=== PATIENT | male | born 1970 | race Hispanic/Latino ===

== ENCOUNTER 2021-12-29 16:19 | Inpatient (IN) | payer OTHER, BC ==
--- OUTSIDE RECORDS SUMMARY | 2021-12-29 16:26 | XMS REPORT | Clinical Summary ---
:1970 Author Organization [facility] Address [address] [place] [address] Care Team Providers Name Role Phone Zena Quiles MD Primary Care Provider Allergies Active Allergy Reactions Severity Noted Date Comments Beau Inhibitors High 11/18/2018 Severe Cough Medications Medication Sig Dispensed Refills Start End Date Status Date anastrozole (ARIMIDEX) Take 1 tablet 1 Active 1 mg tablet by mouth 9 daily. losartan-hydrochlorothi Take 1 tablet 3 Active azide (HYZAAR) 100-25 by mouth 9 mg per tablet daily. metoprolol succinate Take 1 tablet 3 Active (TOPROL XL) 100 mg 24 by mouth 9 hr tablet daily. pantoprazole (PROTONIX) Take 1 tablet 1 Active 40 mg EC tablet by mouth 9 daily. meloxicam (MOBIC) 15 mg Take 1 tablet 1 Active tablet by mouth 9 daily. hydroxychloroquine Take 400 mg 1 Active (PLAQUENIL) 200 mg by mouth 9 tablet daily. testosterone cypionate Inject 200 mg 5 Active (DEPO-TESTOTERONE) 200 into the 9 mg/mL injection shoulder, thigh, or buttocks every 5 days. chlorproMAZINE Take 1 tablet 0 A ctive (THORAZINE) 25 mg by mouth as 9 tablet needed. ondansetron Dissolve 1 0 Active (ZOFRAN-ODT) 4 mg tablet on the 9 disintegrating tablet tongue as needed. simethicone (MYLICON) Chew 250 mg 0 Active 125 mg chewable tablet daily. loratadine (CLARITIN) Take 10 mg by 0 Active 10 mg tablet mouth daily. multivitamin capsule Take 1 0 Active capsule by mouth daily. calcium carbonate Take by mouth 0 Active (CALCIUM 500 ORAL) daily. adalimumab (Humira) 40 Inject 40 mg 0 Active mg/0.8 mL injection under the skin every 14 (fourteen) days. baclofen (LIORESAL) 10 TAKE 1 TABLET 270 tablet 1 Active mg tabletIndications: (10 MG) BY 2 Small bowel bacterial MOUTH EVERY 8 overgrowth syndrome (EIGHT) HOURS NEEDED FOR HICCUPS. baclofen (LIORESAL) 10 TAKE 1 TABLET 270 tablet 1 Discontinued mg tabletIndications: (10 MG) BY 1 22 Small bowel bacterial MOUTH EVERY 8 overgrowth syndrome (EIGHT) HOURS NEEDED FOR HICCUPS. baclofen (LIORESAL) 10 TAKE 1 TABLET 270 tablet 1 Discontinued mg tabletIndications: (10 MG) BY 2 22 Small bowel bacterial MOUTH EVERY 8 overgrowth syndrome (EIGHT) HOURS NEEDED FOR HICCUPS. Active Problems Problem Noted Date Abnormal finding on diagnostic imaging of other part o f digestive tract 11/23/2018 Overview: Added automatically from request for angelika juice [id number] History of bypass of stomach 11/18/2018 Overview: Added automatically from request for angelika juice [id number] Excessive belching 11/18/2018 Overview: Formatting of this note is dif ferent from the original. Mr. Collado is a 51 y.o. male with a PMH of rheumatoid arthritis, Sjogren's syndrome, polychondritis, HTN, gastric bypass, and obesity. He is being managed by Dr. Bandar Dillon at [facility] for NAFLD and is scheduled to have OS EGD on 2 for evaluation of GERD and hiatal hernia. He presents for follow up after last being seen in 11/2019. Follow up 12/15/2019: Mr. Colladois a [age] y.o.malewho presents for follow up video visit for intractable belching. He continues to take baclofen 10 mg when he awakens and before each meal. At times, he requires a 5th tablet. He reports th at belching is markedly improved. He reports that he wakes up during the night with belching episodes and reveals that he uses a CPAP machine. He denies nausea, v omiting, or dysphagia. Heartburn is well controlled with pantoprazole 40 mg qd. His weight is stable. He receives Humira injection for RA and is taking gabapentin 600 mg tid for cervical stenosis. Prior colonoscopy was done on 08/21/2017 and w as found to have internal hemorrhoids. He denies any family history of colorectal cancer. A/P: He has aerophagia as the cause of e xcessive belching. His symptoms are jason. pronounced at night time. These are likely related to the use of CPAP and he is advised to get this reassessed and refill ed. And taper down the baclofen as his s ymptoms improve. Previous workup summarized below: HREM 02/09/2019: EGD outflow obstruction . Normal peristalsis, elevated IRP. Digitrapper pH testing 02/09/2019: This study was done on acid blocking medications. Acid Exposure Time (%): 3.2 (normal <4.2 ) Longest Reflux ( min): 6.8 (normal <9.2) DeMeester Score: 12.6 (normal <14.72) 42 reflux episodes are seen. Most reflux episodes are in the upright position. Symptom association for the reported belching is 63.5 with weakly acidic reflux. This does not meet criteria or symptom ass ociation probability that belching is as sociated with reflux. IMPRESSION: These findings are consistent with acid reflux disease that is controlled with anti reflux medications.. EGD 01/24/2019-Dr. Quiles: LA Grade B refl ux esophagitis. Biopsied. 2 cm hiatal hernia. Gastric bypass with a pouch 4.5 cm in length. Gastrojejunal anastomosis characterized by healthy appearing mucosa. N ormal mucosa was found in the jejunum. B iopsied. A. SMALL BOWEL, BIOPSY: Small intestinal mucosa with preserved villous architecture and no diagnostic abnormality. B. ESOPHAGUS, DISTAL, BIOPSY: Squamous mucosa with ulcer and associated acute and chronic inflammation. No tumor seen. GMS stain for fungal microorganisms is negative. UGI SERIES DOUBLE CONTRAST 11/22/2018:F INDINGS: The esophageal course and caliber were normal with no strictures, masses or diverticula. Tertiary waves were seen in the middle esophageal region at the end of the study. There was no hiatal he rnia or reflux. There was timely passage of the contrast from the esophagus to the residual stomach. Post surgical changes of a Ana-en-Y were seen. No evidence o f strictures or obstructions. Quick pass age of the contrast to the small bowel was seen. IMPRESSION: 1. Post surgical changes of Ana-en-Y without evidence of strictures or obstruction. Quick passage of the contrast from esophagus to the smal l bowel. 2. Evidence of tertiary waves in the middle esophageal region. Encounters Date Type Specialty Care Team Description 12/06/2021 Refill GastroenterKb stephens Mehnaz Small jay wel bacterial Hepatology & Nutrition overg rowth syndrome 11/07/2021 Orders Only Gastroenterology, Daphne Fernandes, Loss of appetite (Primary Dx); Hepatology & Nutrition TECHNICIAN PREVENTATIVE MEDICINE Abnor mal weight loss 10/09/2021 Refill Kb Edmond Mehnaz Small jay wel bacterial Hepatology & Nutrition overg rowth syndrome 09/07/2021 Refill GastroenterKb stephens Mehnaz Small jay wel bacterial Hepatology & Nutrition overg rowth syndrome 09/02/2021 Refill GastroenterKb stephens Mehnaz Small jay wel bacterial Hepatology & Nutrition overg rowth syndrome 03/10/2021 Refill Kb Edmond Mehnaz Small jay wel bacterial Hepatology & Nutrition overg rowth syndrome after 12/29/2020 Surgical History Surgery Date Site/Laterality Comments COLONOSCOPY 02/23/2017 - 02/22/2018 STOMACH SURGERY 02/23/2018 - Hiatal hernia re pair 02/22/2019 CHOLECYSTECTOMY 02/23/2009 - 02/22/2010 SHOULDER SURGERY 02/23/2015 - 02/23/2016 UPPER GASTROINTESTINAL ENDOSCOPY 02/23/2017 - 02/22/2018 WA BREATH HYDROGEN/METHANE TEST 12/15/2018 N/A Procedure: HYDROGEN AND GLUCOSE BREATH T ESTS FOR BACTERIAL OVERGROWTH OR LA CTOSE INTOLERANCE; Angelika geon: Bandar Santos MD; Location: MAIN ENDOSCOPY; Servi ce: GASTROENTEROLOGY WA ESOPHAGOGASTRODUODENOSCOPY 01/24/2019 Esophagus/N/A Pr ocedure: DIAGNOSTIC TRANSORAL DIAGNOSTIC UPPER GASTR OINTESTINAL ENDOSCOPY; Surge on: Zena Quiles MD ; Location: MAIN ENDOSCOPY; Servi ce: GASTROENTEROLOGY WA ESOPHAGEAL MOTILITY STUDY, 02/09/2019 N/A Pr ocedure: ESOPHAGEAL MANOMETRY MOTILITY STUDY W/INTERP&REPORT (MANOSCAN HIGH R ES); Surgeon: Zena Quiles MD; Location: [facility]; Servi ce: GASTROENTEROLOGY WA GERD TST W/ NASAL PH ELECTROD 02/09/2019 N/A Procedure: GASTROESOPHAGEAL REFLUX TEST-DIGITRAPPER W/CATH PH ELTRD PLCOR; Surgeon: Zena Quiles MD; Location: [facility]; Servi ce: GASTROENTEROLOGY Medical History Medical History Date Comments Hypertension 1992 Irregular heart beat 1992 RBBB Dependence on continuous positive airway pressure ventilatio n 2006 Renal stone 2009 Sexual dysfunction 2008 Social History Tobacco Use Types Packs/Day Years Used Date Smoking Tobacco: Never Smokeless Tobacco: Never Alcohol Use Standard Drinks/Week Comments Yes 0 (1 standard drink = 0.6 oz pure alcoho l) Sex Assigned at Date Recorded Male 11/19/2018 3:22 PM CDT Obstetrics History Last Filed Vital Signs Not on file Plan of Treatment Health Maintenance Due Date Last Done Comments COVID-19 Vaccination (#1) 1970 Results Not on fileafter 12/29/2020 Insurance Payer Benefit Plan / Subscriber ID Effective Dates Phone Addre ss Type Group [employer] MANAGED AET[employer] HMO [id number] 2000-Present [id number] [place] [address] [employer] [place] PPO POS [id number] 2016-Present [address] [place] [address] Care Teams [employer] Technician Relationship Specialty Start Date End Date Zena Quiles MD PCP - General Gastroenterology, 11/12/18 [facility] Hepatology and Nutrition [place], [place] [phone]
--- OUTSIDE RECORDS SUMMARY | 2021-12-29 16:27 | XMS REPORT | Continuity of Care Document ---
:1970 Author Organization [facility] t Address [address] [place] [address] Care Team Providers Name Role Phone ZENA QUILES Primary Care Physician Unavailable ZENA QUILES Attending Clinician Unavailable Allegra Bowman Attending Clinician Garrett ARBOLEDA, Judson Molina Attending Clinician Yin Dillon MD Attending Clinician Lucia Guadalupe CPhT Attending Clinician Unavailable Karen Dela Cruz DO Attending Clinician Wesly Flor MD Attending Clinician Zena Quiles MD Attending Clinician Orr RN, Clem Attending Clinician Unavailable Calixto Oliveira MD Attending Clinician Keshia Epperson MA Attending Clinician Unavailable Daphne Fernandes NP Attending Clinician Johnson Beauchamp MA Attending Clinician Unavailable Mike Chowdhury MD Attending Clinician David Altman MD Attending Clinician RIANA CARDENAS Attending Clinician Unavailable ARMANDO ROBLEDO Attending Clinician Unavailable YOSELYN PATTON Attending Clinician Unavailable ZENA QUILES Admitting Clinician Unavailable JUDSON TUCKER Admitting Clinician Unavailable WESLY FLOR Admitting Clinician Unavailable ARMANDO ROBLEDO Admitting Clinician Unavailable Payers Payer Name Policy Type Policy Number Effective Date Expiration Date John [place] AET[employer] O [id number] [id number] 00:00:00 [place] [id number] 2016 00:00:00 AETNA HMO POS [id number] 2009 00:00:00 QPOS BCBS PPO POS EPO [id number] 2013 00:00:00 CHOICE Problems Condition Condition Condition Status Onset Resolution Last Treating Co mments Source Name Details Category Date Date Treatment Clinician Date Abnormal Abnormal Disease Active 2021-02 Metho di liver liver 02-23 enzymes enzymes 00:00: Hospita 00 l NAFLD NAFLD Disease Active 2021-02 Methodi (nonalcoho (nonalcoho 02-23 lic fatty lic fatty 00:00: Hosp harpal liver liver 00 l disease) disease) Right Right Disease Active 2021-02 Methodi upper upper 02-23 st quadrant quadrant 00:00: Hospit a abdominal abdominal 00 l pain pain Gastroesop Gastroesop Disease Active M ethodi hageal hageal 11-13 reflux reflux 00:00: Hospita disease disease 00 l Hernia, Hernia, Disease Active Methodi hiatal hiatal 11-13 00:00: Hospita 00 l Abnormal Abnormal Disease Active 2018-02 Overview: Un dany finding on finding on Formattin ity of diagnostic diagnostic 00:00: g of this [place] imaging of imaging of 00 note other part other part might be Anderso of of different n digestive digestive from the Ca ncer tract tract original. Center Added automatic ally from request for surgery [id number] History of History of Disease Active Overview : Univers bypass of bypass of 11-18 Formattin i ty of stomach stomach 00:00: g of this [place] 00 note MD might be Anderso different n from the Cancer original. Center Added automatic ally from request for surgery [id number] Excessive Excessive Disease Active Overview: Univers belching belching 11-18 Formattin ity of 00:00: g of this [place] 00 note is MD franky [place] from the n original. Cancer Mr. Jordan Collado is a 51 y.o. male with a PMH of rheumatoi d arthritis , Sjogren's syndrome, polychond ritis, HTN, gastric bypass, and obesity. He is being managed by Dr. Yin Dillon at [facility] for NAFLD and is scheduled to have OS EGD on 2 for evaluatio n of GERD and hiatal hernia. He presents for follow up after last being seen in 11/2019.F ollow up 0: Mr. Collado is a 49 y.o. male who presents for follow up video visit for intractab le belching. He continues to take baclofen 10 mg when he awakens and before each meal. At times, he requires a 5th tablet. He reports that belching is markedly improved. He reports that he wakes up during the night with belching episodes and reveals that he uses a CPAP machine. He denies nausea, vomiting, or dysphagia . Heartburn is well controlle d with pantopraz ole 40 mg qd. His weight is stable. He receives Humira injection for RA and is taking gabapenti n 600 mg tid for cervical stenosis. Prior colonosco py was done on 08/21/2017 and was found to have internal hemorrhoi ds. He denies any family history of colorecta l cancer.A/ P: He has aerophagi a as the cause of excessive belching. His symptoms are jason. pronounce d at night time. These are likely related to the use of CPAP and he is advised to get this reassesse d and refilled. And taper down the baclofen as his symptoms improve.P revious workup summarize d below:HRE M 9: EGD outflow obstructi on. Normal peristals is, elevated IRP.Digit rapper pH testing 9: This study was done on acid blocking medicatio ns.Acid Exposure Time (%): 3.2 (normal <4.2)Long est Reflux ( min): 6.8 (normal <9.2)Yovany michelle Score: 12.6 (normal < 14.72)42 reflux episodes are seen. Most reflux episodes are in the upright position. Symptom associati on for the reported belching is 63.5 with weakly acidic reflux. This does not meet criteria or symptom associati on probabili ty that belching is associate d with reflux. IMPRESSIO N: These findings are consisten t with acid reflux disease that is controlle d with anti reflux medicatio ns..EGD 01/24/2019 -Dr. Quiles: LA Grade B reflux esophagit is. Biopsied. 2 cm hiatal hernia. Gastric bypass with a pouch 4.5 cm in length. Gastrojej unal anastomos is character ized by healthy appearing mucosa. Normal mucosa was found in the jejunum. Biopsied. A. SMALL BOWEL, BIOPSY: Small intestina l mucosa with preserved villous aws architect ure and no diagnosti c abnormali ty. B. ESOPHAGUS , DISTAL, BIOPSY: Squamous mucosa with ulcer and associate d acute and chronic inflammat ion. No tumor seen. GMS stain for fungal microorga nisms is negative. UGI SERIES DOUBLE CONTRAST 11/22/2018 : FINDINGS: The esophagea l course and caliber were normal with no stricture s, masses or diverticu la. Tertiary waves were seen in the middle esophagea l region at the end of the study. There was no hiatal hernia or reflux. There was timely passage of the contrast from the esophagus to the residual stomach. Post surgical changes of a Ana-en-Y were seen. No evidence of stricture s or obstructi ons. Quick passage of the contrast to the small bowel was seen. IMPRESSIO N: 1. Post surgical changes of Ana-en-Y without evidence of stricture s or obstructi on. Quick passage of the contrast from esophagus to the small bowel. 2. Evidence of tertiary waves in the middle esophagea l region. Allergies, Adverse Reactions, Alerts Allergy Allergy Status Severity Reaction(s) Onset Inactive Treating Comm ents Source Name Type Date Date Clinician Beau Propensi Active Severe Univers Inhibito ty to 11-18 Cough ity of rs adverse 00:00: [place] reaction 00 MD john [place] [facility] Beau Propensi Active Other (See 2019 cough Meth easton Inhibito ty to Comments) 04-09 st rs adverse 00:00: Hospita reaction 00 l s to drug NO KNOWN Allergy Active [facility] Family History Family Member Diagnosis Comments Start Date Stop Date Source Natural brother Hypertension [facility] Natural daughter Thrombocytopenia [facility] Natural mother Liver [facility] Natural sister Magdalena's thyroiditis [facility] Natural sister Rheum arthritis [facility] Social History Social Habit Start Date Stop Date Quantity Comments Source Alcohol intake 2021-12-26 2021-12-26 Current drinker of [place] [facility] 00:00:00 00:00:00 alcohol (finding) Hospita l Tobacco use and 2021-11-07 2021-11-07 Smokeless tobacco [facility] exposure 00:00:00 00:00:00 non-user Hospital Alcohol Comment 2019-11-02 2019-11-[address] 00:00:00 00:00:00 Hospital Sex Ass[birth year] At [birth year] [facility] [place] 00:00:00 00:00:00 [facility] Center Smoking Status Start Date Stop Date Source Never smoked tobacco [facility] Medications Ordered Filled Start Stop Current Ordering Indication Dosage Frequency Signature Comments Components Source Medication Medication Date Date Medication? Clinician (SIG) Name Name RAQUEL Johnson, 2021-02 Yes INJECT 1 Met hodi Pen 40 0-[address] mg/0.4 mL 00:00: THE SKIN Hosp harpal pen 00 EVERY 14 l injector DAYS. kit baclofen 2021-02 Yes Small bowel 10mg TAKE 1 Univers (LIORESAL) 0-19 bacterial TABLET (10 ity of 10 mg 00:00: over[place] tablet 00 syndrome MOUTH MD EVERY 8 Anderso (EIGHT) n HOURS Cancer NEEDED FOR Center HICCUPS. sulfaSALAzi Yes TAKE 2 Meth easton ne 9-[address] (AZULFIDINE 00:00: MOUTH Hospi ta ) 500 mg 00 TWICE A l tablet DAY hydrOXYchlo Yes [id number] 400mg QD Take 2 Methodi roQUINE 9-[address] (PLAQUENIL) 00:00: (400 mg Hos junior 200 mg 00 total) by l tablet mouth daily. RAQUEL Johnson, 2021- No INJECT 1 Me thodi Pen 40 8-02 10-[address] mg/0.4 mL 00:00: 00:00 THE SKIN Hos junior pen 00 :00 EVERY 14 l injector DAYS. kit sulfaSALAzi 2022-0 2022- No 500mg Q.5D Take 500 Methodi ne 08-20- mg by st (AZULFIDINE 15:09: 00:00 mouth 2 Ho spita ) 500 mg 07 :00 (two) l tablet times a day. flu vac 2021- No Afluria Qd Met hodi [id number] st 36mos 14:56: 00:00 (36 mos Hospita up,PF, 57 :00 up)(PF)60 l (Afluria Qd mcg (15 ,3yr mcg up,,PF,) 60 x4)/0.5 mL mcg (15 mcg IM syringe x 4)/0.5 mL syringe sulfaSALAzi 2021- No 1000mg Q.5D Take 2 M ethodi ne 08-[address] (AZULFIDINE 00:00: 00:00 (1,000 mg Hospita ) 500 mg 00 :00 total) by l tablet mouth 2 (two) times a day. methocarbam Yes 750mg Take 1 Met hodi oL 07-[address] (ROBAXIN) 00:00: (750 mg Hospi ta 750 MG 00 total) by l tablet mouth as needed. hydrOXYchlo 2021- No [id number] TAKE 2 Methodi roQUINE 07-26 09-[address] (PLAQUENIL) 00:00: 00:00 MOUTH Hosp harpal 200 mg 00 :00 EVERY DAY l tablet Humira,CF, 2021- No INJECT 1 Me thodi Pen 40 4- 08-[address] mg/0.4 mL 00:00: 00:00 THE SKIN Hos junior pen 00 :00 EVERY 14 l injector DAYS. kit leflunomide 2021- No TAKE 1 Met hodi (ARAVA) 10 05-21 04-[address] MG tablet 00:00: 00:00 MOUTH Hospit a 00 :00 EVERY DAY l sulfaSALAzi 2021- No 500mg Q.5D Take 1 Me thodi ne 05-14 04-[address] (Azulfidine 00:00: 00:00 (500 mg Ho spita ) 500 mg 00 :00 total) by l tablet mouth 2 (two) times a day. meloxicam No 15mg Q24H TAKE 1 Metho di (MOBIC) 15 2-08 02-09 TABLET (15 st mg tablet 00:00: 05:59 MG TOTAL) Ho spita 00 :00 BY MOUTH l DAILY NEEDED FOR MODERATE PAIN. Prevalite 4 2021- No TAKE 1 Met hodi gram powder 26 09-[address] in packet 00:00: 00:00 PACKET Hospi ta 00 :00 ONCE A DAY l DISSOLVED IN 4 OZ OF WATER adalimumab 2021- No 40mg Q14D Inject 40 M ethodi (Humira,CF, 126 04-[address] Pen) 40 00:00: 00:00 the skin Hospi ta mg/0.4 mL 00 :00 every 14 l pen (fourteen) injector days. kit baclofen No Small bowel 10mg TAKE 1 Univers (LIORESAL) 03-13 10-19 bacterial TABLET (10 ity of 10 mg 00:00: 00:00 overgrowth MG) BY Joseph as tablet 00 :00 syndrome MOUTH MD EVERY 8 Anderso (EIGHT) n HOURS Cancer NEEDED FOR Center HICCUPS. adalimumab No 40mg Q14D Inject 40 M ethodi (Humira,CF, 118 01-[address] Pen) 40 00:00: 00:00 the skin Hospi ta mg/0.4 mL 00 :00 every 14 l pen (fourteen) injector days. kit anastrozole 2020-02 Yes 1mg Q7D Take 1 Meth easton (ARIMIDEX) 2-30 tablet (1 st 1 mg chemo 00:00: mg total) Ho spita tablet 00 by mouth l once a week. leflunomide 2020-02- No 20 MG Meth [facility]on (ARAVA) 20 2-30 03-[address] MG tablet 00:00: 00:00 Hospita 00 :00 l leflunomide 2020-02- No 10 mg Meth [place] (ARAVA) 20 2-23 12-[address] MG tablet 00:00: 00:00 1 week Hospi ta 00 :00 then 20 mg l daily leflunomide 2020-02- No 10 mg Meth easton (ARAVA) 20 04-16-[address] MG tablet 00:00: 00:00 1 week Hospi ta 00 :00 then 20 mg l daily leflunomide 2020-02- No 10mg QD Take 1 Met hodi (ARAVA) 10 04-16- tablet (10 st MG tablet 00:00: 00:00 mg total) Ho spita 00 :00 by mouth l daily. BD Luer-Kt 2020-02 Yes Method i Syringe 3 2-16 st mL 23 gauge 00:00: Hospit a x 1 1/2" 00 l syringe BD Regular 2020-02 Yes Methodi Bevel 1-10 st Galt 18 00:00: Hospita gauge x 1" 00 l needle naproxen 2020-02- No 500mg Q.5D Take 500 Met hodi (NAPROSYN) 012 03-[address] 500 MG 00:00: 00:00 mouth 2 Hospita tablet 00 :00 (two) l times a day with meals. hydrOXYchlo 2021- No [id number] 400mg QD Take 2 Methodi roQUINE 11-14 06-[address] (PLAQUENIL) 00:00: 00:00 (400 mg Ho spita 200 mg 00 :00 total) by l tablet mouth daily. adalimumab 2021- No 40mg Q14D Inject 40 M ethodi (Humira,CF, 11-14 01-[address] Pen) 40 00:00: 00:00 the skin Hospi ta mg/0.4 mL 00 :00 every 14 l pen (fourteen) injector days. kit meloxicam 2021- No 15mg Q24H TAKE 1 Metho di (MOBIC) 15 8-11 02-08 TABLET (15 st mg tablet 00:00: 00:00 MG TOTAL) Ho spita 00 :00 BY MOUTH l DAILY NEEDED FOR MODERATE PAIN. baclofen No Small bowel 10mg TAKE 1 Univers (LIORESAL) 09-20-19 bacterial TABLET (10 ity of 10 mg 00:00: 00:00 overgrowth MG) BY Joseph as tablet 00 :00 syndrome MOUTH MD EVERY 8 Anderso (EIGHT) n HOURS Cancer NEEDED FOR Center HICCUPS. gabapentin 2019-02 Yes TAKE 1 Metho di (NEURONTIN) 2-[address] 600 mg 00:00: MOUTH Hospita tablet 00 THREE l TIMES A DAY clindamycin 2019-02 Yes Method i (CLEOCIN T) 2-22 st 1 % swab 00:00: Hospita 00 l predniSONE 2019-02- No 2 tabs Meth [facility]on (DELTASONE) 2-19 12-[address] 5 mg tablet 00:00: 05:59 3 days Hos junior 00 :00 then 1 tab l daily for 3 days. To have on hand for arthritis flare. azelastine- 2019-02 Yes 1{spray 1 spray by Methodi fluticasone 0-25 } Each Nare st (DYMISTA) 00:00: route. Hospit a 137-50 00 l mcg/spray spray,non-a erosol adalimumab 2019-02 Yes 40mg Inject 40 Un dayn (Humira) 40 0-20 mg under ity of mg/0.8 mL 11:03: [place] injection 51 every 14 (gaetano) [facility] [place] simethicone 2019-02 Yes 250mg Chew 250 U nivers (MYLICON) 0-20 mg daily. ity o f 125 mg 11:03: [place] chewable 26 tablet [facility] loratadine 2019-02 Yes 10mg Take 10 mg U nivers (CLARITIN) 0-20 by mouth ity o f 10 mg 11:03: daily. [place] tablet 26 MD [facility] [place] multivitami 2019-02 Yes 1{capsu Take 1 U nivers n capsule 0-20 le} capsule by ity of 11:03: mouth [place] 26 daily. MD [facility] [place] calcium 2019-02 Yes Take by Univers carbonate 0-20 mouth ity of (CALCIUM 11:03: daily. [place] 500 ORAL) 26 MD [facility] [place] anastrozole Yes 1{tbl} Take 1 Un dany (ARIMIDEX) 9-17 tablet by ity of 1 mg tablet 00:00: mouth [place] 00 daily. MD [facility] meloxicam Yes 1{tbl} Take 1 Univ ers (MOBIC) 15 9-17 tablet by ity of mg tablet 00:00: mouth [place] 00 daily. MD [facility] testosteron Yes 200mg Inject 200 Univers e cypionate 9-17 mg into ity o f (DEPO-TESTO 00:00: the [place] TERONE) 200 00 shoulder, MD mg/mL thigh, or Anderso injection buttocks n every 5 Cancer days. [place] hydroxychlo Yes 400mg Take 400 U nivers roquine 9-13 mg by ity of (PLAQUENIL) 00:00: mouth [place] 200 mg 00 daily. tablet Coni [facility] losartan-hy Yes 1{tbl} Take 1 Un dany drochloroth 8-07 tablet by ity of iazide 00:00: mouth [place] (HYZAAR) 00 daily. 100-25 mg Anderso per tablet [facility] metoprolol Yes 1{tbl} Take 1 Uni vers succinate 8-07 tablet by ity o f (TOPROL XL) 00:00: mouth [place] 100 mg 24 00 daily. hr tablet [facility] chlorproMAZ Yes 1{tbl} Take 1 Un dany INE 8-07 tablet by ity of (THORAZINE) 00:00: [place] 25 mg 00 needed. tablet [facility] ondansetron Yes 1{tbl} Dissolve 1 Univers (ZOFRAN-ODT 8-07 tablet on ity of ) 4 mg 00:00: the tongue [place] disintegrat 00 as needed. ing tablet [facility] baclofen Yes 10mg Q.2D Take 10 mg Met hodi (LIORESAL) 8-[address] 10 MG 00:00: (five) Hospita tablet 00 times a l day. XIIDRA 5 % Yes INSTILL 1 Me thodi dropperette 7-[address] 00:00: BOTH EYES Hospita 00 TWICE A l DAY pantoprazol Yes 1{tbl} Take 1 Un dany e 6-07 tablet by ity of (PROTONIX) 00:00: mouth [place] 40 mg EC 00 [facility]. [facility] pantop[facility]ol Yes 40mg QD Take 40 mg Methodi e 1-[address] (PROTONIX) 00:00: daily. Hospi ta 40 MG EC 00 l tablet testosteron Yes INJECT 1 Me thodi e cypionate 1-[address] (DEPOTESTOT 00:00: INTRAMUSCU Hospita ERONE 00 LARLY ONCE l CYPIONATE) A WEEK 200 mg/mL injection sildenafil, Yes 20mg QD Take 20 mg Methodi antihyperte 1-[address] nsive, 00:00: daily. Hospita (REVATIO) 00 l 20 mg tablet losartan-hy Yes 1{tbl} QD Take 1 Me thodi drochloroth 1-[address] iazide 00:00: mouth Hospita (HYZAAR) 00 daily. l 100-25 mg per tablet metoprolol Yes 100mg QD Take 100 Me thodi succinate 1-[address] XL 00:00: mouth Hospita (TOPROL-XL) 00 daily. l 100 mg 24 hr tablet Vital Signs Vital Name Observation Time Observation Value Comments Source Systolic blood 2021-12-26 12:46:00 117 mm[Hg] [facility] pressure Diastolic blood 2021-12-26 12:46:00 77 mm[Hg] [facility] pressure Heart rate 2021-12-26 12:46:00 79 /min [facility] Body temperature 2021-12-26 12:46:00 36.61 Brigette [facility] Respiratory rate 2021-12-26 12:46:00 18 /min [facility] Body height 2021-12-26 12:46:00 162.6 cm [facility] Body weight 2021-12-26 12:46:00 84.369 kg [facility] BMI 2021-12-26 12:46:00 31.93 kg/m2 [facility] Oxygen saturation in 2021-12-26 12:46:00 98 /min [facility] Arterial blood by Pulse oximetry Procedures Procedure Date / Time Performing Source Performed Clinician CBC WITH PLATELET AND DIFFERENTIAL 2021-12-13 Yin Dillon 17:11:00 [facility] COMPREHENSIVE METABOLIC PANEL 2021-12-13 Yin Dillon ethodist 17:11:00 Hospital GGT 2021-12-13 Yin Dillon 17:11:00 [facility] IMMUNOGLOBULIN G, A, M 2021-12-13 Yin Dillon t 17:11:00 Hospital PROTHROMBIN TIME WITH INR 2021-12-13 Yin Dillon [facility] dist 17:11:00 Hospital FL UGI W OR WO KUB 2021-12-12 Wesly Flor 14:05:00 Hospital SURGICAL PATHOLOGY REQUEST 2021-12-03 Wesly Floro dist 19:41:00 Hospital ESOPHAGOGASTRODUODENOSCOPY (EGD) 2021-12-03 Wesly Flor 19:33:00 Hospital C-REACTIVE PROTEIN 2021-11-07 Lanie Latifa [facility] 20:32:00 Hospital SEDIMENTATION RATE 2021-11-07 Lanie Latifa [facility] 20:32:00 Hospital CBC WITH PLATELET AND DIFFERENTIAL 2021-11-07 Lanie Juani a [facility] 20:32:00 Hospital ALBUMIN LEVEL 2021-11-07 Lanie Latifa [facility] 20:32:00 Hospital AST (SGOT) 2021-11-07 Lanie Latifa [facility] 20:32:00 Hospital ALT (SGPT) 2021-11-07 Lanie, Latifa [facility] 20:32:00 Hospital URINALYSIS, AUTOMATED WITH 2021-11-07 Lanie Latifa [facility] MICROSCOPY 20:31:00 Hospital ANTI-NEUTROPHILIC CYTOPLASMIC ABS 2021-11-07 Lanie, Latifa [facility] PANEL 20:31:00 Hospital MYELOPEROXIDASE (MPO) ANTIBODIES 2021-11-07 Lanie Latifa [facility] 20:31:00 Hospital IMMUNOFIXATION, SERUM 2021-11-07 Lanie, Latifa [facility] 20:31:00 Hospital SERUM ELECTROPHORESIS 2021-11-07 Lanie, Latifa [facility] 20:31:00 Hospital MICROSCOPIC EXAMINATION 2021-11-07 Lanie Latifa Methodis t 20:31:00 Hospital MRI ABDOMEN W WO CONTRAST 2021-10-22 Yin Dillon [facility] dist 15:57:01 Hospital CBC WITH PLATELET AND DIFFERENTIAL 2021-09-04 Yin Dillon 14:21:00 Hospital COMPREHENSIVE METABOLIC PANEL 2021-09-04 Yin Dillon ethodist 14:21:00 Hospital GGT 2021-09-04 Yin Dillon 14:21:00 Hospital PROTHROMBIN TIME WITH INR 2021-09-04 Yin Dillon Metho dist 14:21:00 Hospital IMMUNOGLOBULIN G, A, M 2021-09-04 Yin Dillonis t 14:21:00 Hospital LIPID PANEL 2021-09-04 Yin Dillon 14:21:00 Hospital ANTI-SMOOTH MUSCLE ANTIBODY 2021-09-04 Yin Dillon Met hodist 14:21:00 Hospital ANTI MITOCHONDRIA SCREEN 2021-09-04 Yin Dillon ist 14:21:00 Hospital ANTINUCLEAR ANTIBODIES (MEGHANA) WITH 2021-09-04 Yin Dillon REFLEX TO TITER AND PATTERN, 14:21:00 Hos pital IMMUNOFLUORESCENCE ACUTE VIRAL HEPATITIS (HAV, HBV, 2021-09-04 Yin Dillon HCV) 14:21:00 Hospital INTERPRETATION 2021-09-04 Yin Dillon 14:21:00 Hospital US ABDOMINAL DOPPLER 2021-09-03 Yin Dillon 17:16:00 Hospital US ABDOMEN COMPLETE 2021-09-03 Yin Dillon 16:35:[address] POST MYELOGRAM THORACIC 2021-08-30 Mike Chowdhury Met hodist 16:39:[address] POST MYELOGRAM LUMBAR 2021-08-30 Mike Chowdhuryo dist 16:39:[address] POST MYELOGRAM CERVICAL 2021-08-30 Mike Chowdhury hodist 16:26:33 Hospital IR MYELOGRAM 2+REG INCL INJ W S&I 2021-08-30 Mike Chowdhury [facility] 16:09:18 Hospital XR CERVICAL SPINE AP LATERAL 2021-07-26 Mike Chowdhury K. M ethodist FLEXION AND EXTENSION 16:47:17 Hospital AST (SGOT) 2021-07-10 Karen Dela Cruz 17:55:00 Hospital ALT (SGPT) 2021-07-10 Karen Dela Cruz 17:55:00 Hospital ALBUMIN LEVEL 2021-07-10 Karen Dela Cruz 17:55:00 Hospital CREATININE LEVEL 2021-07-10 Fakoya, Latifa [facility] 17:55:00 Hospital SEDIMENTATION RATE 2021-07-10 Fakoya, Latifa [facility] 17:55:00 Hospital C-REACTIVE PROTEIN 2021-07-10 Fakoya, Latifa [facility] 17:55:00 Hospital CBC WITH PLATELET AND DIFFERENTIAL 2021-07-10 Fakoya, Juani a [facility] 17:55:00 Hospital QUANTIFERON-TB GOLD PLUS 2021-07-10 Fakoya Latifa [facility] dist 17:55:00 Hospital HEPATITIS B CORE ANTIBODY TOTAL 2021-07-10 Fakoya, Latifa [facility] 17:55:00 Hospital HEPATITIS C ANTIBODY 2021-07-10 Fakoya, Latifa [facility] 17:55:00 Hospital HEPATITIS B SURFACE ANTIBODY 2021-07-10 Fakoyisaías Latifa Met hodist 17:55:00 Hospital HEPATITIS B SURFACE ANTIGEN 2021-07-10 Fakcal Latifa [facility]ist 17:55:00 Hospital QUANTIFERON-TB GOLD PLUS 2021-07-[address] 17:55:00 [facility] US ABDOMINAL EXTERNAL STUDY 2021-03-26 David Altman [facility]ist 13:51:00 Hospital Plan of Care Planned Activity Planned Date Details Comments Source Future Scheduled 2021-12-27 HEPATITIS B VACCINES [facility] Test 11:49:17 (1 of 3 - 3-dose series) [code = HEPATITIS B VACCINES (1 of 3 - 3-dose series)] Future Scheduled 2021-12-27 COLONOSCOPY SCREENING [facility] Test 11:49:17 [code = COLONOSCOPY SCREENING] Future Scheduled 2021-12-21 COVID-19 Vaccination [facility] Test 11:24:29 (#1) [code = COVID-19 MD [facility] Vaccination (#1)] Center Future Scheduled 2021-10-24 INFLUENZA VACCINE (#1) [facility] Test 00:00:00 [code = INFLUENZA Medical Ce nter VACCINE (#1)] Future Scheduled 2021-02-[address] [facility] Test 00:00:00 (12+) [code = Medical Center DEPRESSION SCREENING (12+)] Future Scheduled 2018-01-27 SHINGLES VACCINES ([address] [facility] Test 00:00:00 of 2) [code = SHINGLES Medic al Center VACCINES (1 of 2)] Future Scheduled 2003-01-[address] [facility] Test 00:00:00 (procedure) [code = Medical Center [id number]] Future Scheduled 1987-01-27 DTAP/TDAP/TD VACCINES [facility] Test 00:00:00 (1 - Tdap) [code = Medical C enter DTAP/TDAP/TD VACCINES (1 - Tdap)] Future Scheduled 1986-01-27 HEPATITIS C SCREENING [facility] Test 00:00:00 [code = HEPATITIS C Medical Center SCREENING] Future Scheduled 1970 COVID-19 VACCINE (#1) [facility] Test 00:00:00 [code = COVID-[address] VACCINE (#1)] Future Scheduled [address] [facility] 00:00:00 (combo) [code = CT Medical C enter Colonography (combo)] Future Scheduled [address] [facility] 00:00:00 malignant neoplasm of Medica l Center colon (procedure) [code = 527871081] Future Scheduled [address] [facility] Test 00:00:00 malignant neoplasm of Medica l Center colon (procedure) [code = 597968793] Future Scheduled [address] [facility] Test 00:00:00 malignant neoplasm of Medica l Center colon (procedure) [code = 572228446] Future Scheduled [address] [facility] Test 00:00:00 malignant neoplasm of Medica l Center colon (procedure) [code = 543682222] Future Scheduled 1970 Sigmoidoscopy [code = [facility] Test 00:[facility] S[facility]oscopy] Medical Cente r Encounters Start End Encounter Admission Attending Care Care Encounter Source Date/Time Date/Time Type Type Clinicians Facility Department ID 2019-09-02 Outpatient SYLVIE QUILES MDA Young/Hep/Nu [id number] 9357 10:09:24 ZENA Newberry n 2021-12-26 2021-12-26 Anesthesia Allegra Acosta 1.2.840.1 [id number] Methodi 10:10:00 10:10:[address] 3.430.2.7 Hospit a .3.779730 l .8 2021-12-26 2021-12-26 [facility] Judson Tucker 1.2.840.1 [id number] 2 [id number] Methodi 07:36:00 08:20:00 Encounter Tracy 28894.1.1 992 s t 3.430.2.7 Hospit a .3.374388 l .8 2021-12-26 2021-12-26 Outpatient JUDSON TUCKER [facility] 021 082 [id number] [place] 00:00:00 00:00:[address] 2021-12-26 2021-12-26 Travel 1.2.840.1 1.2.898.486 1735 274155 Methodi 00:00:00 00:00:[address] 3.430.2.7 0.2.7.3.698 Ho spita .3.364488 084.8 l .8 2021-12-24 2021-12-24 Office Santana 1.2.840.1 [id number] 816689 2370 Methodi 10:15:00 10:35:10 Visit Yin Rose 28183.1.[address] 3.430.2.7 Hospit a .3.355374 l .8 2021-12-24 2021-12-24 Outpatient SANTANA [facility] [id number] 494 [place] 00:00:00 00:00:[address] YIN [address] 2021-12-24 2021-12-24 Travel 1.2.840.1 1.2.116.458 8105 953834 Methodi 00:00:00 00:00:[address] 3.430.2.7 0.2.7.3.698 Ho spita .3.820876 084.8 l .8 2021-12-17 2021-12-17 Telephone Collins, 1.2.840.1 [id number] 2 [id number] Methodi 00:00:00 00:00:[address] 3.430.2.7 Hospit a .3.041131 l .8 2021-12-16 2021-12-16 Refill Lanie, 1.2.840.1 [id number] 373479 0565 Methodi 00:00:00 00:00:[address] 3.430.2.7 Hospit a .3.259620 l .8 2021-12-12 2021-12-12 [facility] 1.2.840.1 [id number] 06064 07253 Methodi 08:12:26 23:59:00 Encounter Wesly PRey 69022.1.1 954 s t 3.430.2.7 Hospit a .3.550109 l .8 2021-12-12 2021-12-12 [facility] [id number] 514 [place] 00:00:00 00:00:00 WESLY [address] 2021-12-12 2021-12-12 Travel 1.2.840.1 1.2.498.795 1497 686615 Methodi 00:00:00 00:00:[address] 3.430.2.7 0.2.7.3.698 Ho spita .3.194985 084.8 l .8 2021-12-06 2021-12-06 [facility] Kb, 1.2.840.1 [id number] 478776 0586 Univers 00:00:00 00:00:00 Zena 58739.1.1 ity of 3.412.2.7 [place] .3.330815 MD .8 [facility] 2021-12-04 2021-12-04 Telephone de Los 1.2.840.1 [id number] 2099 220067 Methodi 00:00:00 00:00:00 Bebeto, 31663.1.[address] [place] 3.430.2.7 Hos junior .3.805983 l .8 2021-12-04 2021-12-04 Orders de Los 1.2.840.1 [id number] 621590 6896 Methodi 00:00:00 00:00:00 Only Bebeto, 83336.1.[address] [facility] 3.430.2.7 Hos junior .3.002101 l .8 2021-12-03 2021-12-03 [facility] [place], 1.2.840.1 [id number] 33964 14311 Methodi 11:47:00 15:26:00 Encounter Wesly Adams 27598.1.1 096 s t 3.430.2.7 Hospit a .3.390977 l .8 2021-12-03 2021-12-03 Anesthesia Calixto Oliveira K 1.2.840.1 519637 028 [id number] Methodi 14:33:00 14:47:00 Event Allegra Acosta 63923.1.1 107 s t 3.430.2.7 Hospit a .3.159385 l .8 2021-12-03 2021-12-03 [facility] [place], 1.2.840.1 [id number] 992322 3296 Methodi 13:00:00 13:30:00 Wesly Adams 09238.1.[address] 3.430.2.7 Hospit a .3.558931 l .8 2021-12-03 2021-12-03 Outpatient [facility] 864 [id number] 276 [place] 00:00:00 00:00:[address] WESLY [address] 2021-12-03 2021-12-03 Travel 1.2.840.1 1.2.895.969 1570 996356 Methodi 00:00:00 00:00:[address] 3.430.2.7 0.2.7.3.698 Ho spita .3.877616 084.8 l .8 2021-12-02 2021-12-02 Telephone Zeenat, 1.2.840.1 [id number] 2099 864447 Methodi 00:00:00 00:00:[address] 3.430.2.7 Hospit a .3.933795 l .8 2021-11-28 2021-11-28 Travel 1.2.840.1 1.2.687.296 5807 971650 Methodi 00:00:00 00:00:[address] 3.430.2.7 0.2.7.3.698 Ho spita .3.045275 084.8 l .8 2021-11-27 2021-11-27 Travel 1.2.840.1 1.2.886.855 5477 690524 Methodi 00:00:00 00:00:[address] 3.430.2.7 0.2.7.3.698 Ho spita .3.540346 084.8 l .8 2021-11-26 2021-11-26 Orders Zeenat, 1.2.840.1 [id number] 092680 7096 Methodi 00:00:00 00:00:00 Only Keshia 87474.1.[address] 3.430.2.7 Hospit a .3.886037 l .8 2021-11-19 2021-11-19 Orders Zeenat, 1.2.840.1 [id number] 404432 6822 Methodi 00:00:00 00:00:00 Only Keshia 18140.1.[address] 3.430.2.7 Hospit a .3.829051 l .8 2021-11-19 2021-11-19 Prep for Zeenat, 1.2.840.1 [id number] 32239 35742 Methodi 00:00:00 00:00:00 Surgery Keshia 98084.1.[address] 3.430.2.7 Hospit a .3.957788 l .8 2021-11-13 2021-11-13 Office Chacho 1.2.840.1 [id number] 627546 2134 Methodi 14:00:00 15:39:38 Visit Wesly Adams 40496.1.[address] 3.430.2.7 Hospit a .3.440378 l .8 2021-11-13 2021-11-13 Outpatient CHACHO [facility] [id number] 571 [place] 00:00:00 00:00:00 WESLY [address] 2021-11-13 2021-11-13 Travel 1.2.840.1 1.2.090.350 1748 020163 Methodi 00:00:00 00:00:[address] 3.430.2.7 0.2.7.3.698 Ho spita .3.855777 084.8 l .8 2021-11-12 2021-11-12 Refill Fakhaileya, 1.2.840.1 [id number] 917644 3285 Methodi 00:00:00 00:00:[address] 3.430.2.7 Hospit a .3.019898 l .8 2021-11-07 2021-11-07 Office Lanie, 1.2.840.1 [id number] 390033 1808 Methodi 14:40:00 15:26:25 Visit Lataury 90441.1.[address] 3.430.2.7 Hospit a .3.175669 l .8 2021-11-07 2021-11-07 Orders Dom, 1.2.840.1 [id number] 30794 04095 [facility] 00:00:00 00:00:00 Only Daphne 34224.1.1 ity of 3.412.2.7 [place] .3.234489 MD Le8 [facility] 2021-11-07 2021-11-07 Outpatient [facility] [id number] 258 [place] 00:00:00 00:00:[address] 2021-11-07 2021-11-07 Travel 1.2.840.1 1.2.176.072 2868 883399 Methodi 00:00:00 00:00:[address] 3.430.2.7 0.2.7.3.698 Ho spita .3.783151 084.8 l .8 2021-11-05 2021-11-05 Orders Beauchamp, 1.2.840.1 [id number] 21 [id number] Methodi 00:00:00 00:00:00 Only Johnson 26182.1.[address] 3.430.2.7 Hospit a .3.720239 l .8 2021-10-22 2021-10-22 [facility] Santana, 1.2.840.1 [id number] 05044 82662 Methodi 08:57:12 23:59:00 Encounter Yin Rose 61099.1.1 927 s t 3.430.2.7 Hospit a .3.906705 l .8 2021-10-22 2021-10-22 Outpatient SANTANA, [facility] [id number] 680 [place] 00:00:00 00:00:00 YIN [address] 2021-10-22 2021-10-22 Travel 1.2.840.1 1.2.442.418 6682 055379 Methodi 00:00:00 00:00:[address] 3.430.2.7 0.2.7.3.698 Ho spita .3.558412 084.8 l .8 2021-10-09 2021-10-09 Refill Kb, 1.2.840.1 [id number] 921462 8977 [facility] 00:00:00 00:00:00 Zena 79811.1.1 ity of 3.412.2.7 [place] .3.413181 MD .8 [facility] 2021-09-27 2021-09-27 Travel 1.2.840.1 1.2.467.893 1174 120881 Methodi 00:00:00 00:00:[address] 3.430.2.7 0.2.7.3.698 Ho spita .3.975659 084.8 l .8 2021-09-23 2021-09-23 Refroselia Dela Cruz, 1.2.840.1 [id number] 865894 7199 Methodi 00:00:00 00:00:[address] 3.430.2.7 Hospit a .3.730477 l .8 2021-09-17 2021-09-17 Travel 1.2.840.1 1.2.253.799 0552 850488 Methodi 00:00:00 00:00:[address] 3.430.2.7 0.2.7.3.698 Ho spita .3.662752 084.8 l .8 2021-09-10 2021-09-10 Office Santana, 1.2.840.1 [id number] 732397 9993 Methodi 09:15:00 10:50:27 Visit Yin Campbell50.1.[address] 3.430.2.7 Hospit a .3.565441 l .8 2021-09-10 2021-09-10 Outpatient SANTANA, [facility] [id number] 524 [place] 00:00:00 00:00:00 YIN Quinones [facility] 2021-09-10 2021-09-10 Travel 1.2.840.1 1.2.355.374 9562 031504 Methodi 00:00:00 00:00:[address] 3.430.2.7 0.2.7.3.698 Ho spita .3.534720 084.8 l .8 2021-09-07 2021-09-07 [facility], 1.2.840.1 [id number] 336864 4285 Univers 00:00:00 00:00:00 Zena 93791.1.1 ity of 3.412.2.7 [place] .3.251511 MD Le8 [facility] 2021-09-03 2021-09-03 [facility] Santana, 1.2.840.1 [id number] 74826 92740 Methodi 10:41:19 23:59:00 Encounter Yin Rose 77853.1.1 691 s t 3.430.2.7 Hospit a .3.526932 l .8 2021-09-03 2021-09-03 [facility] Santana, 1.2.840.1 [id number] 92657 Methodi 10:30:00 10:40:00 Encounter Yin Rose 58498.1.1 690 s t 3.430.2.7 Hospit a .3.324409 l .8 2021-09-03 2021-09-03 Outpatient SANTANA, [facility] [id number] [address] [place] [address] 00:00:00 00:00:00 YIN [address] 2021-09-03 2021-09-03 Travel 1.2.840.1 1.2.559.437 6472 175954 Methodi 00:00:00 00:00:[address] 3.430.2.7 0.2.7.3.698 Ho spita .3.383721 084.8 l .8 2021-09-03 2021-09-03 [facility] [id number] [address] [place] [address] 00:00:00 00:00:00 YIN [address] 2021-09-02 2021-09-02 Susana Quiles, 1.2.840.1 [id number] 817125 0697 [facility] 00:00:00 00:00:00 Zena 18670.1.1 ity of 3.412.2.7 [place] .3.427666 .8 [facility] 2021-08-30 2021-08-30 [facility], 1.2.840.1 [id number] 64992 44043 Methodi 09:24:44 23:59:00 Encounter Mike Campbell50.1.[address] 3.430.2.7 Hospit a .3.420997 l .8 2021-08-30 2021-08-30 [facility] 1.2.840.1 [id number] 52403 28361 Methodi 09:24:22 23:59:00 Encounter Mike Campbell50.1.[address] 3.430.2.7 Hospit a .3.258685 l .8 2021-08-30 2021-08-30 [place] 17093.2.840.1 [id number] 47423 54983 Methodi 09:23:24 09:23:24 Encounter Mike Campbell50.1.[address] 3.430.2.7 Hospit a .3.855015 l .8 2021-08-30 2021-08-30 [facility] Bindal, 1.2.840.1 [id number] 26257 51626 Methodi 09:23:00 09:23:00 Encounter Mike Muro 30426.1.[address] 3.430.2.7 Hospit a .3.108182 l .8 2021-08-30 2021-08-30 Outpatient BINDAL, [facility] [id number] 251 [place] 00:00:00 00:00:00 MIKE [address] 2021-08-30 2021-08-30 Outpatient BINDAL, [facility] [id number] [address] [place] [address] 00:00:00 00:00:00 MIKE [address] 2021-08-30 2021-08-30 Outpatient BINDAL, [facility] [id number] [address] [place] [address] 00:00:00 00:00:00 MIKE [address] 2021-08-30 2021-08-30 Outpatient BINDAL, [facility] [id number] [address] [place] [address] 00:00:00 00:00:00 MIKE [address] 2021-08-20 2021-08-20 Office Fakoya, 1.2.840.1 [id number] 4814 Methodi 13:40:00 15:18:40 Visit Karen 16151.1.[address] 3.430.2.7 Hospit a .3.946862 l .8 2021-08-20 2021-08-20 Travel 1.2.840.1 1.2.295.449 0128 536808 Methodi 00:00:00 00:00:[address] 3.430.2.7 0.2.7.3.698 spita .3.181935 084.8 l .8 2021-08-20 2021-08-20 Outpatient FAKOYA, [facility] [id number] 574 [place] 00:00:00 00:00:[address]CORBINA [address] 2021-07-31 2021-07-31 Transcribe Bindal, 1.2.840.1 [id number] 062 [id number] Methodi 00:00:00 00:00:00 Orders Mike Muro 52123.1.[address] 3.430.2.7 Hospit a .3.208869 l .8 2021-07-26 2021-07-26 [facility], 1.2.840.1 [id number] 32751 87968 Methodi 11:16:19 23:59:00 Encounter Mike Muro 93574.1.[address] 3.430.2.7 Hospit a .3.984558 l .8 2021-07-26 2021-07-26 Travel 1.2.840.1 1.2.831.288 6891 746488 Methodi 00:00:00 00:00:[address] 3.430.2.7 0.2.7.3.698 Ho spita .3.922611 084.8 l .8 2021-07-26 2021-07-26 Transcribe [facility], 1.2.840.1 [id number] 024 [id number] Methodi 00:00:00 00:00:00 Orders Mike Muro 70972.1.[address] 3.430.2.7 Hospit a .3.245821 l .8 2021-07-26 2021-07-26 Refill [facility], 1.2.840.1 [id number] 257822 4132 Methodi 00:00:00 00:00:[address] 3.430.2.7 Hospit a .3.991047 l .8 2021-07-26 2021-07-26 Outpatient [facility] [id number] 476 [place] 00:00:00 00:00:00 MIKE [address] 2021-07-08 2021-07-08 [facility], 1.2.840.1 [id number] 2099 917427 Methodi 07:51:52 23:59:00 Encounter David 68229.1.[address] 3.430.2.7 Hospit a .3.346437 l .8 2021-07-08 2021-07-08 Outpatient [facility] [id number] 5677 [place] 00:00:00 00:00:00 DAVID [address] 2021-05-29 2021-05-29 Refill Lanie, 1.2.840.1 [id number] 3074 Methodi 00:00:00 00:00:[address] 3.430.2.7 Hospit a .3.231113 l .8 2021-05-28 2021-05-28 Office Santana, 1.2.840.1 [id number] 180084 2149 Methodi 13:30:00 14:41:28 Visit Yin Rose 85423.1.[address] 3.430.2.7 Hospit a .3.328375 l .8 2021-05-28 2021-05-28 Travel 1.2.840.1 1.2.969.217 6454 199818 Methodi 00:00:00 00:00:[address] 3.430.2.7 0.2.7.3.698 Ho spita .3.301193 084.8 l .8 2021-05-28 2021-05-28 Outpatient SANTANA, [facility] [id number] 399 [place] 00:00:00 00:00:00 YIN Garcia [facility] 2021-05-14 2021-05-14 Office Lanie, 1.2.840.1 [id number] 705310 0131 Methodi 16:20:00 17:01:14 Visit Karen 22535.1.[address] 3.430.2.7 Hospit a .3.255722 l .8 2021-05-14 2021-05-14 Travel 1.2.840.1 1.2.084.646 8186 408397 Methodi 00:00:00 00:00:[address] 3.430.2.7 0.2.7.3.698 Ho spita .3.337699 084.8 l .8 2021-05-14 2021-05-14 [facility] [id number] 971 [place] 00:00:00 00:00:00 LATIFA [address] 2021-05-06 2021-05-06 Refill Lanie, 1.2.840.1 [id number] 835934 2477 Methodi 00:00:00 00:00:[address] 3.430.2.7 Hospit a .3.405078 l .8 2021-03-26 2021-03-26 Refill Lanie, 1.2.840.1 [id number] 441660 8785 Methodi 00:00:00 00:00:[address] 3.430.2.7 Hospit a .3.726332 l .8 2021-03-20 2021-03-20 Refill Beauchamp, 1.2.840.1 [id number] [id number] Methodi 00:00:00 00:00:[address] 3.430.2.7 Hospit a .3.196736 l .8 2021-03-18 2021-03-18 Documentat [place], 1.2.840.1 [id number] Methodi 00:00:00 00:00:00 ion Zaretha 01141.1.[address] 3.430.2.7 Hospit a .3.819977 l .8 2021-03-12 2021-03-12 Refill Beauchamp, 1.2.840.1 [id number] 21 [id number] Methodi 00:00:00 00:00:[address] 3.430.2.7 Hospit a .3.786033 l .8 2021-03-10 2021-03-10 Refill Kb, 1.2.840.1 [id number] 444644 5696 [facility] 00:00:00 00:00:00 Zena 00513.1.1 ity of 3.412.2.7 [place] .3.633763 MD Rey8 [facility] 2021-02-20 2021-02-20 Refill Lanie, 1.2.840.1 [id number] 867351 0609 Methodi 00:00:00 00:00:[address] 3.430.2.7 Hospit a .3.922269 l .8 2021-02-14 [facility] [id number] 21 [id number] Methodi 00:00:00 00:00:[address] 3.430.2.7 Hospit a .3.793604 l .8 2021-02-13 2021-02-13 Office [facility], 1.2.840.1 [id number] 6933 Methodi 09:40:00 10:52:09 Visit Lataury 73525.1.[address] 3.430.2.7 Hospit a .3.074932 l .8 2021-02-13 2021-02-13 Documentat [place], 1.2.840.1 [id number] Methodi 00:00:00 00:00:00 ion Reynaha 22166.1.[address] 3.430.2.7 Hospit a .3.764364 l .8 2021-02-13 2021-02-13 Travel 1.2.840.1 1.2.296.808 0755 811742 Methodi 00:00:00 00:00:[address] 3.430.2.7 0.2.7.3.698 spita .3.602932 084.8 l .8 2021-02-13 2021-02-13 Outpatient [facility] [id number] 047 [place] 00:00:00 00:00:00 LATIFA [address] 2021-01-31 2021-01-31 Documentat [place], 1.2.840.1 [id number] Methodi 00:00:00 00:00:00 ion Reyn[place] 77981.1.[address] 3.430.2.7 Hospit a .3.565903 l .8 2020-11-30 2020-11-30 Outpatient MCMENEMY, [facility] [id number] 26155 [place] 00:00:00 00:00:00 RIANA [address] 2020-11-14 2020-11-14 Outpatient [facility] [id number] 903 [place] 00:00:00 00:00:[address] 2020-11-02 2020-11-02 Outpatient ROBLEDO, [facility] 511 [id number] 490 [place] 00:00:00 00:00:00 ARMANDO 07Carmen [facility] 2020-09-28 2020-09-28 Outpatient BINDAL, [facility] [id number] 297 [place] 00:00:00 00:00:00 MIKE [address] 2020-09-28 2020-09-28 Outpatient BINDAL, [facility] [id number] 297 [place] 00:00:00 00:00:00 MIKE [address] 2020-08-31 2020-08-31 Outpatient BINDAL, [facility] [id number] 104 [place] 00:00:00 00:00:00 MIKE [address] 2020-05-29 2020-05-29 Outpatient BINDAL, [facility] [id number] 778 [place] 00:00:00 00:00:00 MIKE [address] 2020-04-19 2020-04-19 Outpatient FAKOYA, [facility] [id number] 156 [place] 00:00:00 00:00:00 LATIFA [address] 2020-02-08 2020-02-08 Outpatient SLSL [facility] [id number] 118 [facility] 00:00:00 00:00:00 2020-02-08 2020-02-08 Outpatient EL [facility] [id number] 117 [facility] 00:00:00 00:00:00 2020-01-18 2020-01-18 Outpatient [facility] [id number] [place] 00:00:00 00:00:[address] 2019-12-15 2019-12-15 Outpatient EL MINERVA QUILES MDA [id number] 13:56:15 14:04:22 ZENA ye 2019-11-18 2019-11-18 Outpatient [facility] 671 [id number] 522 [place] 00:00:00 00:00:00 ARMANDO Jacobsen [facility] 2019-11-04 2019-11-04 Outpatient VENKAT [facility] [id number] 540 [place] 00:00:00 00:00:00 ARMANDO [address] 2019-10-05 2019-10-05 Outpatient LANIE [facility] [id number] [place] 00:00:00 00:00:00 LATIFA [address] 2019-09-20 2019-09-20 Outpatient LEIGH [facility] [id number] 562 [place] 00:00:00 00:00:00 TOMER [address] 2019-08-15 2019-08-15 Outpatient LEIGH [facility] [id number] [place] 00:00:00 00:00:00 TOMER, [address] 2019-08-10 2019-08-10 Outpatient LEIGH [facility] [id number] 839 [place] 00:00:00 00:00:00 TOMER, [address] 2019-08-01 2019-08-01 Outpatient LEIHG [facility] [id number] 702 [place] 00:00:00 00:00:00 TOMER, [address] 2019-08-01 2019-08-01 Outpatient [facility] [id number] 279 [place] 00:00:00 00:00:[address] 2019-07-15 2019-07-15 Outpatient LANIE, [facility] [id number] 953 [place] 00:00:00 00:00:00 LATIFA [address] 2019-06-07 2019-06-07 Outpatient LANIE [facility] [id number] 278 [place] 00:00:00 00:00:00 LATIFA [address] 2018-11-18 2018-11-18 Outpatient SYLVIE KBMINERVA MDA [id number] MD 12:40:38 12:41:11 ZENA ye 2018-09-27 2018-09-27 Outpatient E [facility] ANA 7503 Memoria 17:58:00 17:58:00 [facility] 2018-07-24 2018-07-24 Outpatient U [facility] ANA 9152 Memoria 10:55:00 10:55:00 pablito [facility] 2018-07-22 2018-07-22 Inpatient U [facility] ANA 7502 Memoria 10:02:00 05:49:00 l Alberto [facility] l [facility] Results Test Description Test Time Test Comments Results Result Comments Source Comprehensive metabolic panel 2021-12-14 10:09:00 Test Item Value Reference Range Interpretation Comme nts Glucose (test code = 132 mg/dL 70-99 H 2345-7) BUN (test code = 3094-0) 4 mg/dL 6-24 L Creatinine (test code = 0.71 mg/dL 0.76-1.27 L 2160-0) eGFR (test code = 8257) 110 mL/min/1.73 See_Comment [Automated message] The system [employer] generated this result transmitted ref erence range: >=59. Th e reference range was not used to interpr et this result as normal/abnormal . BUN/creatinine ratio (test 9-20 L code = 3097-3) Sodium (test code = 133 mmol/L 134-144 L 2951-2) Potassium (test code = 4.3 mmol/L 3.5-5.2 2823-3) Chloride (test code = 91 mmol/L 96-106 L 2075-0) CO2 (test code = 8-9) 26 mmol/L 20-29 Calcium (test code = 8.9 mg/dL 8.7-10.2 33772-4) Protein (test code = 6.5 g/dL 6.0-8.5 2885-2) Albumin, S (test code = 4.3 g/dL 3.8-4.9 1751-7) Globulin, total (test code 2.2 g/dL 1.5-4.5 = 69053-2) Albumin/globulin ratio 1.2-2.2 (test code = 1759-0) Total bilirubin (test code 0.4 mg/dL 0.0-1.2 = 1975-2) Alkaline phosphatase (test See_Comment [Automated message] code = 6768-6) The system [employer] generated this result transmitted ref erence range: 44 - 121 IU/L. The reference r narciso was not used to int erpret this result as normal/abnormal . AST (test code = 1920-8) See_Comment H [A utomated message] The system [employer] generated this result transmitted ref erence range: 0 - 40 I U/L. The reference range was not used to interpr et this result as normal/abnormal . ALT (test code = 1742-6) See_Comment [A utomated message] The system [employer] generated this result transmitted ref erence range: 0 - 44 I U/L. The reference range was not used to interpr et this result as normal/abnormal . NATTY (test code = NATTY) Performed at: - [address] [id number] Director: Max Gresham MD, Phone: [phone] Lab Interpretation (test Abnormal code = 96911-1) [id number] 10:09:00 Test Item Value Reference Range Interpretation Comments GGT (test code See_Comment [Automated m essage] = 2324-2) The system [employer] generated this result transmit jared reference range : 0 - 65 IU/L. The reference range was not used to interpret this result as normal/abnormal . NATTY (test code Performed at: - = NATTY) Lab[address] [id number] Director: Max Gresham MD, Phone: [phone] [facility] CenterImmunoglobulin [facility], A, [id number] 10:09:00 Test Item Value Reference Range Interpretation Comments IgG (test code = 939 mg/dL 603-1613 2465-3) IgA (test code = 329 mg/dL 90-386 2458-8) IgM (test code = 82 mg/dL 20-172 2472-9) NATTY (test code = Performed at: - NATTY) [address] [id number] Director: Max Gresham MD, Phone: [phone] [facility] CenterProthrombin time with [id number] 10:09:00 Test Item Value Reference Range Interpretation Comments INR (test code = 0.9-1.2 Reference i nterval 6301-6) is for non-anticoagula jared patients.Sugges jared INR therapeutic range for Vitam in [employer] therapy: Standa rd Dose (moderate intensity therapeutic range): 2.0 - 3 .0 Higher intensit y therapeutic ran ge 2.5 - 3.5 Prothrombin time See_Comment [Automated (test code = message] The 5902-2) system which generated this result transmit jared reference range : 9.1 - 12.0 sec. The reference range was not u sed to interpret th is result as normal/abnormal . NATTY (test code = Performed at: 01 NATTY) - [facility] [id number] [place], [place] [id number] Director: Max Gresham MD, Phone: [phone] [facility] with platelet and [id number] 05:07:00 Test Item Value Reference Range Interpretation Comments WBC (test code = See_Comment [Automated 6690-2) message] The system which generated this result transmitted reference range : 3.4 - 10.8 x10E3/uL. The reference range was not used to interpret this result as normal/abnormal . RBC (test code = See_Comment L [Automated 789-8) message] The system which generated this result transmitted reference range : 4.14 - 5.80 x10E6/uL. The reference range was not used to interpret this result as normal/abnormal . HGB (test code = 14.4 g/dL 13.0-17.7 718-7) HCT (test code = 41.1 % 37.5-51.0 4544-3) MCV (test code = 100 fL 79-97 H 787-2) MCH (test code = 35.0 pg 26.6-33.0 H 785-6) MCHC (test code = 35.0 g/dL 31.5-35.7 786-4) RDW (test code = 12.7 % 11.6-15.4 788-0) Platelet count (test See_Comment [Autom ated code = 777-3) message] The system which generated this result transmitted reference range : 150 - 450 x10E3/uL. The reference range was not used to interpret this result as normal/abnormal . Neutrophils (test 47 % Not Estab. code = 770-8) Lymphocytes (test 42 % Not Estab. code = 736-9) Monocytes (test code 9 % Not Estab. = 5905-5) Eosinophils (test 1 % Not Estab. code = 713-8) Basophils (test code 1 % Not Estab. = 706-2) Neutrophils, absolute See_Comment [Auto mated (test code = 751-8) message] The system which generated this result transmitted reference range : 1.4 - 7.0 x10E3/uL. The reference range was not used to interpret this result as normal/abnormal . Lymphocytes, absolute See_Comment [Auto mated (test code = 731-0) message] The system which generated this result transmitted reference range : 0.7 - 3.1 x10E3/uL. The reference range was not used to interpret this result as normal/abnormal . Monocytes, absolute See_Comment [Automa jared (test code = 742-7) message] The system which generated this result transmitted reference range : 0.1 - 0.9 x10E3/uL. The reference range was not used to interpret this result as normal/abnormal . Eosinophils, absolute See_Comment [Auto mated (test code = 711-2) message] The system which generated this result transmitted reference range : 0.0 - 0.4 x10E3/uL. The reference range was not used to interpret this result as normal/abnormal . Basophils, absolute See_Comment [Automa jared (test code = 704-7) message] The system which generated this result transmitted reference range : 0.0 - 0.2 x10E3/uL. The reference range was not used to interpret this result as normal/abnormal . Immature granulocytes 0 % Not Estab. (test code = 06650-5) Immature See_Comment [Automated granulocytes, message] The absolute (test code = system which 10121-3) generated this result transmitted reference range : 0.0 - 0.1 x10E3/uL. The reference range was not used to interpret this result as normal/abnormal . NATTY (test code = NATTY) Performed at: [facility] [id number] Director: Max Gresham MD, Phone: [phone] Lab Interpretation Abnormal (test code = 58133-9) [facility] [id number] 18:57:42 Test Item Value Reference Range Interpretation Comments Case number (test code = [id number]) Surgical pathology See link below for report (test code = PDF Lab Report [id number]) Result status (test code This is Final Report = [id number]) for [id number] [facility] [id number] 10:10:00 Test Item Value Reference Range Interpretation Comments Protein (test 6.7 g/dL 6.0-8.5 code = 2885-2) Albumin, S 4.0 g/dL 2.9-4.4 (test code = 2862-1) Nnbni-8-qychjak 0.3 g/dL 0.0-0.4 n (test code = 2865-4) Uiphq-5-tgonepz 0.6 g/dL 0.4-1.0 n (test code = 2868-8) Beta globulin 1.0 g/dL 0.7-1.3 (test code = 2871-2) Gamma globulin 0.9 g/dL 0.4-1.8 (test code = 2874-6) M-Dewayne, % Not Observed Not Observed (test code = g/dL 30386-3) Globulin, total 2.7 g/dL 2.2-3.9 (test code = 55772-5) Albumin/globuli 0.7-1.7 n ratio (test code = 1759-0) Please note Comment Protein (test code = electrophoresis scan [id number]) will follow via computer, mail, orcodahlia corbett. NATTY (test code Performed at: 01 = NATTY) - [address] [id number] Director: Max Gresham MD, Phone: [phone] ed at: 02 - [address], [place], [place] [id number] Director: SALLY Bailey MD, Phone: [phone] [facility] CenterImmunofixation, [id number] 22:08:00 Test Item Value Reference Range Interpretation Comments Immunofixation Comment The immunofix ation , serum (test pattern appear s code = unremarkable. E vidence 00656-0) ofmonoclonal pr otein is not apparent . IgG (test code 891 mg/dL 603-1613 = 2465-3) IgA (test code 286 mg/dL 90-386 = 2458-8) IgM (test code 78 mg/dL 20-172 = 2472-9) NATTY (test code Performed at: 01 - = NATTY) [address], [place], [place] [id number] Director: SALLY Bailey MD, Phone: [phone] d at: 02 - [facility] [address] [place], [place] [id number] Director: Max Gresham MD, Phone: [phone] [facility] CenterAnti-neutrophilic cytoplasmic Abs [id number] 20:10:00 Test Item Value Reference Interpretation Comments Range C-ANCA (test <1:20 See_Comment [Automated mes lacho] The code = 88567-2) system which generated this result tra nsmitted reference range : Neg:<1:20 titer . The reference range was not used to interpr et this result as normal/abnormal . Perinuclear <1:20 See_Comment The presence of positive (P-ANCA) (test fluorescence exhibiting code = 02971-5) P-ANCA or C- ANCApatterns alone is not sp ecific for the diagnosis o f Marco Antonio'sGranul omatosis (WG) or microsc opic polyangiitis. D ecisions abouttreatment should not be based solely on ANCA IFA results. TheInternationa l ANCA Group Consensus recommends foll ow up testing ofposit meron sera with both UT-3 and MPO-ANCA enzyme immunoassays. A smany as 5% serum sample s are positive only b y EIA.Ref. AM J Clin Patho l 1999;111:507-51 3. [Automated mess age] The system which ge nerated this result tra nsmitted reference range : Neg:<1:20 titer . The reference range was not used to interpr et this result as normal/abnormal . Atypical pANCA <1:20 See_Comment The atypical pANCA (test code = pattern has bee n observed 04993-5) in a significantperc entage of patients with u lcerative colitis, primar y sclerosingchola ngitis and autoimmune hepa titis. [Automated mess age] The system which ge nerated this result tra nsmitted reference range : Neg:<1:20 titer . The reference range was not used to interpr et this result as normal/abnormal . NATTY (test code = Performed at: NATTY) - [facility]px[facility] [place], [place] [id number] Director: Seth Garcia MD, Phone: [phone] [facility] HospitalMyeloperoxidase (MPO) hungpdcjzj6398-40-27 18:11:00 Test Item Value Reference Range Interpretation Comments Myeloperoxidase (MPO) <0.2 See_Comment [Auto mated antibodies (test code messag e] The = 31435-3) system which generated this result transmitted reference range : 0.0 - 0.9 units . The reference range was not used to interpr et this result as normal/abnormal . NATTY (test code = NATTY) Performed at: [address] [id number] Director: Seth Garcia MD, Phone: [phone] [facility] HospitalProteinase-3 (UT-3) [id number] 18:11:00 Test Item Value Reference Range Interpretation Comments Proteinase-3 <0.2 See_Comment [Automated (UT-3) antibodies message] T he (test code = system which 85363-0) generated this result transmit jared reference range : 0.0 - 0.9 units . The reference range was not u sed to interpret th is result as normal/abnormal . NATTY (test code = Performed at: NATTY) [address] [id number] Director: Seth Garcia MD, Phone: [phone] [facility] HospitalUrinalysis, automated with mihtnaaemo8631-19-97 14:11:00 Test Item Value Reference Range Interpretation Comments Specific gravity, 1.005-1.030 urine (test code = 5811-5) pH, urine (test 5.0-7.5 code = 5803-2) Color, UA (test Yellow Yellow code = 5778-6) Appearance (test Clear Clear code = 5767-9) WBC esterase, urine Negative Negative (test code = 5799-2) Protein, UA (test Negative Negative/Trace code = 18025-7) Glucose, urine Negative Negative (test code = 95895-0) Ketones, UA (test Negative Negative code = 2514-8) Occult blood, urine Negative Negative (test code = 5794-3) Bilirubin, UA (test Negative Negative code = 5770-3) Urobilinogen, UA 0.2 mg/dL 0.2-1.0 (test code = 15769-9) Nitrite, UA (test Negative Negative code = 5802-4) Microscopic See below: Microscopic was examination (test indicated and was code = 57157-6) performed. NATTY (test code = Performed at: NATTY) - [address] [id number] Director: Max Gresham MD, Phone: [phone] [facility] CenterMicroscopic Pqqzyktswzi5934-10-76 14:11:00 Test Item Value Reference Range Interpretation Comments WBC, UA (test code None seen See_Comment [Automat ed = 5821-4) message] The system which generated this result transmit jared reference range : 0 - 5 /hpf. The reference range was not used to interpret this result as normal/abnormal . RBC, UA (test code None seen See_Comment [Automat ed = 27364-5) message] The system which generated this result transmit jared reference range : 0 - 2 /hpf. The reference range was not used to interpret this result as normal/abnormal . Epithelial cells None seen See_Comment [Automated (non renal) (test message] T he code = 5787-7) system which generated this result transmit jared reference range : 0 - 10 /hpf. The reference range was not used to interpret this result as normal/abnormal . Casts (test code = None seen None seen /lpf 87620-8) Bacteria, UA (test None seen None seen/Few code = 5769-5) NATTY (test code = Performed at: ) [address] [id number] Director: Max Gresham MD, Phone: [phone] [facility] CenterAlbumin [id number] 12:17:00 Test Item Value Reference Range Interpretation Comments Albumin, S (test 4.6 g/dL 3.8-4.9 code = 1751-7) NATTY (test code = Performed at: NATTY) [address] [id number] Director: Max Gresham MD, Phone: [phone] [facility] (SGOT)2021-11-08 12:17:00 Test Item Value Reference Range Interpretation Comments AST (test code = See_Comment H [Automated 1919-09) message] The system which generated this result transmitted reference range : 0 - 40 IU/L. Th e reference range was not used to interpret this result as normal/abnormal . NATTY (test code = NATTY) Performed at: - [address] [id number] Director: Max Gresham MD, Phone: [phone] Lab Interpretation Abnormal (test code = 66806-8) [facility] 12:17:00 Test Item Value Reference Range Interpretation Comments ALT (test code See_Comment [Automated m essage] = 1742-6) The system [facility] generated this result transmit jared reference range : 0 - 44 IU/L. The reference range was not used to interpret this result as normal/abnormal . NATTY (test code Performed at: - = NATTY) [address] [id number] Director: Max Gresham MD, Phone: [phone] [facility] CenterC-reactive ftnpopo6204-21-05 12:17:00CRP<10 - 10 mg/LLABCORPMethodist HospitalSedimentation agpv2077-13-77 12:17:00 Test Item Value Reference Range Interpretation Comments Sedimentation rate See_Comment [Automat ed (test code = 4537-7) message ] The system which generated this result transmitted reference range : 0 - 30 mm/hr. T he reference range was not used to interpret this result as normal/abnormal . NATTY (test code = Performed at: NATTY) - [address] [id number] Director: Max Gresham MD, Phone: [phone] [facility] CenterAnti-smooth muscle [id number] 21:07:00 Test Item Value Reference Range Interpretation Comments F-actin See_Comment Negative 0 - 1 9 (smooth Weak positive 20 - muscle) Ab, 30 Moderate to IgG (test code strong positi ve >30 = 39565-3) Actin Antibodie s are found in 52-85% of patients with autoimmune hepa titis or chronic acti ve hepatitis and i n 22% of patients wit h primary biliary cirrhosis. [Automated mess age] The system [employer] generated this result transmit jared reference range : 0 - 19 Units. The reference range was not used to interpret this result as normal/abnormal . NATTY (test code Performed at: - = NATTY) [address] [id number] Director: Seth Garcia MD, Phone: [phone] [facility] CenterAnti mitochondria zmcnlv2720-06-10 21:07:00 Test Item Value Reference Range Interpretation Comments Mitochondrial Ab <20.0 See_Comment Negative 0 .0 - (test code = 20.0 Equivocal 94612-7) 20.1 - 24.9 Positive >24.9Mitochondr ia l (M2) Antibodi es are found in 90-96% ofpatien ts with primary biliary cirrhosis. [Automated message] The system which generated this result transmitted reference range : 0.0 - 20.0 Unit s. The reference range was not used to interpr et this result as normal/abnormal . NATTY (test code = Performed at: NATTY) - [address] [id number] Director: Seth Garcia MD, Phone: [phone] [facility] CenterAcyolmdvHADZJAZSGZJBDS5378-27-18 13:12:00 Test Item Value Reference Range Interpretation Comments Interpretation (test Comment Negativ eNot code = 19941-8) infected wit h HCV, unless recent infection is suspected or otherevidence exists to indic ate HCV infection. NATTY (test code = Performed at: [facility]) - [address] [id number] Director: Max Gresham MD, Phone: [phone] [facility] CenterAcute Viral Hepatitis (HAV, HBV, HCV)2021-09-06 13:12:00 Test Item Value Reference Range Interpretation Comments Hepatitis A IgM Negative Negative (test code = 02750-5) Hepatitis B Negative Negative surface Ag (test code = 5196-1) Hepatitis B core Negative Negative IgM (test code = 18306-4) Hepatitis C Ab <0.1 See_Comment [Automated (test code = message] The sy stem 89653-0) which generated this result transmitted reference range : 0.0 - 0.9 s/co ratio. The reference range was not used to interpret this result as normal/abnormal . NATTY (test code = Performed at: [facility]) [address] [place] [id number] Director: Max Gresham MD, Phone: [phone] [facility]2022-07-14 15:12:00 Test Item Value Reference Range Interpretation Comments MEGHANA direct (test code Negative Negative = 8061-4) NATTY (test code = NATTY) Performed at: [address] [id number] Director: Max Gresham MD, Phone: [phone] [facility] CenterLipid [id number] 13:12:00 Test Item Value Reference Range Interpretation Comments Cholesterol (test 169 mg/dL 100-199 code = 2093-3) Triglycerides (test 59 mg/dL 0-149 code = 2571-8) HDL cholesterol 103 mg/dL See_Comment [Automated (test code = 2085-9) message ] The system which generated this result transmitted reference range : >=39. The reference range was not used to interpret this result as normal/abnormal . VLDL cholesterol ezra 12 mg/dL 5-40 (test code = 24720-1) LDL Chol Calc ([facility]) 54 mg/dL 0-99 (test code = 48124-4) Non-HDL cholesterol 66 mg/dL 0-129 (test code = 44574-8) NATTY (test code = Performed at: NATTY) - [address] [id number] Director: Max Gresham MD, Phone: [phone] [facility] CenterQuantiFERON-TB Gold [id number] 22:07:00 Test Item Value Reference Range Interpretation Comments QuantiFERON Incubation Incubation (test performed. code = 5936) Quantiferon TB Negative Negative Chemiluminesc ence gold plus (test immunoassay code = 75270-1) methodology NATTY (test code = Performed at: NATTY) - [address] [id number] Director: Max Gresham MD, Phone: [phone] med at: 02 [facility] Eaiwrfo[address] [id number] Director: Mookie Downs MD, Phone: [phone] [facility] CenterQuantiFERON-TB Gold [id number] 22:07:00 Test Item Value Reference Range Interpretation Comments Quantiferon Comment The QuantiFERON -TB criteria (test Gold Plus res ult is code = 8251-1) determined by subtractingthe Nil value from eith er TB antigen (Ag) tu be. The mitogen tubeserves as a control for the test. QuantiFERON TB1 Ag IU/mL Value (test code = 55084-1) QuantiFERON TB2 Ag IU/mL Value (test code = 5942) Quantiferon NIL IU/mL value (test code = 61741-7) Quantiferon >10.00 IU/mL mitogen value (test code = 63262-8) NATTY (test code = Performed at: NATTY) - [address] [id number] Director: Mookie Downs MD, Phone: [phone] [facility] Medical Centertis B surface [id number] 14:11:00 Test Item Value Reference Range Interpretation Comments Hepatitis B surface Ag Negative Negative (test code = 5196-1) NATTY (test code = NATTY) Performed at: - [address] [id number] Director: Max Gresham MD, Phone: [phone] [facility] Centertis B surface [id number] 14:11:00 Test Item Value Reference Range Interpretation Comments Hepatitis B Reactive Non Reactive: surface Ab (test Inconsisten t with code = 33035-5) immunity, le ss than 10 mIU/mL React meron: Consistent with immunity, great er than 9.9 mIU/mL NATTY (test code = Performed at: - NATTY) [address] [id number] Director: Max Gresham MD, Phone: [phone] [facility] B core antibody [id number] 14:11:00 Test Item Value Reference Range Interpretation Comments Hepatitis B core total Negative Negative Ab (test code = 12294-0) NATTY (test code = NATTY) Performed at: [address] [id number] Director: Max Gresham MD, Phone: [phone] [facility] HospitalHepatitis C unzelwuw9167-04-06 14:11:00 Test Item Value Reference Range Interpretation Comments Hepatitis C Ab See_Comment Negative: < 0.8 (test code = Indeterminate: 0.8 - 25073-9) 0.9 Positive: > 0.9 The [facility] recomme nds that a positive HCV antibody result be followed up wit h a HCV Nucleic Aci d Amplification t est (183235). [Auto mated message] The sy stem which generated this result transmit jared reference range : 0.0 - 0.9 s/co rati o. The reference r narciso was not used to interpret this result as normal/abnormal . NATTY (test code = Performed at: NATTY) - [facility] [address] [id number] Director: Max Gresham MD, Phone: [phone] [facility] tzjxv5812-21-28 13:03:00 Test Item Value Reference Range Interpretation Comments Creatinine (test 0.85 mg/dL 0.76-1.27 code = 2160-0) eGFR (test code = 104 mL/min/1.73 See_Comment [Autom ated 8257) message] The system which generated this result transmit jared reference range : >=59. The reference range was not used to interpret this result as normal/abnormal . NATTY (test code = Performed at: NATTY) [facility] [address] [id number] Director: Max Gresham MD, Phone: [phone] [facility] CenterCT, SPINE, CERVICAL, [id number] 18:01:00Reason for Exam:->[facility] ST[facility] : 1970 Sex: MFINALREPORT PROCEDURE: CT, SPINE, CERVICAL, CONTRAST CLINICAL INDICATION: CERVICAL STENOSIS s/p myelogram COMPARISON: None CT MYELOGRAM TECHNIQUE: CT myelogram of the cervical spine wasperformed after intrathecal injection of contrast. Axial imaging was presented in bone and soft tissue windows with sagittal and coronal reconstructions. Please see the separately dictated report for the intrathecal contrast injection procedure for further details about contrast dose, fluoroscopy time, and any complications. DOSE REDUCTION: This exam was performed according to our departmental dose optimization program which includes automated exposure control, adjustment of the mA and/or kV according to patient's size and/or use of iterative reconstructive technique. FINDINGS: CERVICAL SPINE:Alignment: Grade 1 anterolisthesis of C2 on C3 and of C3 on C4. Vertebral bodies: Vertebral body heights are maintained. No aggressive osseous lesion. Spinal cord: Craniocervical junction is normal. Cord is of normal caliber. Soft tissues: Paraspinal soft tissues are unremarkable. Additional findings by level: C2-3: Small disc osteophyte complex. No high-grade canal or foraminal stenosis. C3-4: Disc osteophyte complex indents ventral thecal sac and mildly flattens the cord. No significant canal stenosis. Facet and uncovertebral hypertrophy result in severe right and moderate left foraminal stenosis. C4-5: No high-grade canal or foraminal stenosis. C5-6: Small disc osteophyte complex indents ventral thecal sac and mildly flattens the cord. No high-grade canal or foraminal stenosis. C6-7: Small disc osteophyte complex. No high-grade canal or foraminal stenosis. IMPRESSION:Degenerative changes of the cervical spine resulting in severe right and moderate left foraminal stenosis at C3-4. No high- grade canal stenosis. Signed: Nadja Ca MDReport Verified Date/Time: 02/08/2020 18:01:20 CT, BIOPSY/ASPIRATION/[id number] 15:18:00 [facility] : 1970 Sex: MFINALREPORT CT Guided myelography. History: Neck pain. The patient was here for translumbar cervical myelography. The attempts to perform fluoroscopic-guided myelography were unsuccessful because of bulbous overhanging spinous processes and laminae. We have no option but to resort to CT-guided access to the spinal subarachnoid space. Furnace Utility Operator: Jerson Jacobson MD. Photovoltaic Installer: None. Modality: CT DOSE REDUCTION: The examination was performed according to departmental dose-optimization program which includes automated exposure control, adjustment of the mA and/or kV according to patient size and/or use of iterative reconstruction technique. Radiation dose for this procedure was 1061.6 mGy-cm. This does includes the CT myelography in addition to the CT guided access. Sedation: No sedation. Anesthesia: Lidocaine preservative-free local infiltration. Estimated blood loss: < 5cc. Technique: Informed written consent was obtained. Discussion of risks, benefits, and alternatives were made with the patient. The patient expressed understanding and agreed to proceed. A universal timeout was performed prior to starting the procedure. The room personnel used personal protective equipment. The operators used sterile gloves in addition. The patient was laid prone on the CT table. Apreliminary CT scan was performed through the region of interest to localize the target. A limited CT was performed through the region of interest with a marking grid in place to determine an access site, depth and angle. The site was prepped with chlorhexidine gluconate and draped in a standard sterile fashion. After local anesthesia a 22-gauge 3 1/2 inches long spinal needle was advanced under inter mittent CT fluoroscopy into the L2-L3 level spinal subarachnoid space. Unobstructed return of the CSF was confirmed. This was followed by injection of 15 cc of Isovue-300, under intermittent CT fluoroscopy guidance to confirm safe injection. The needle was withdrawn at the end of the procedure. An aseptic dressing was applied. A limited postprocedure CT was done to assess for safe injection of contrast medium. The patient was transferred to the recovery area on the stretcher. Additional details of the post CT course are described in the report on fluoroscopic myelography. Complications: None immediate. Impression: Successful CT guided needle placement in the L2-L3 level spinal subarachnoid space and injection of 15 cc of Isovue-300 in the subarachnoid space for performance of myelography. Thank you for the opportunity to assist in the care of your patient. Signed: Jerson Jacobson MDRspencer Verified Date/Time: 02/08/2020 15:18:50 Reading Location: [facility] Radiology Reading Room FL, MYELOGRAM, CERVICAL 2020-02-08 15:08:00Unlisted Reason for Exam - Click Yes and Enter Reason Below- >Yes Unlisted Reason for Exam->[facility] ST[facility] : 1970 Sex: MFINALREPORT Lumbar Myelogram Modality: Fluoroscopy Sedation: None Anesthesia: Preservative-free lidocaine local infiltration Indication: Neck pain Fluoroscopy time: 2.2 minutes Fluoroscopy dose: 111 mGy air Kerma Number of images: 4 Procedure:After informed consent was obtained, the patient was prepped and draped in a sterile manner. Landmarks were obtained under fluoroscopic guidance. Lidocaine was injected subcutaneously. Using intermittent fluoroscopic guidance, a 22 gauge needle was introduced into the thecal sac at the L2-L3 level. There was great difficulty in advancing the needle into the spinal canal because of over bearing bulbous spinous processes despite prolonged attempts. At this point we resorted to CT-guided procedure. Please refer to the details reported separately. After successful CT-guided injection of contrast medium in the spinal subarachnoid space, the patient was transported to a stretcher and placed in Trendelenburg's position with sporadic x-ray checks to assess the percent of the contrast medium. The patient was then transferred to the CT scanner cervical myelography. The patient left the department in stable condition. The patient to follow at least two hours of strict bedrest flat on the back and follow additional post lumbar puncture precautions. Impression: Unsuccessful attempted fluoroscopy guided myelogram. The procedure was performed with CT guidance and is reported separately. Signed: Jerson Jacobson MDRepandrea Verified Date/Time: 02/08/2020 15:08:29 Reading Location: [facility] Radiology Reading Room
[2021-12-29] MEDS ORDERED: NA CHLORIDE 0.9% 1,000 ML ONE (16:32)
[2021-12-29 17:11] LABS: Absolute Lymphocytes (CBC) 1.4 K/uL (0.7-4.9); Hematocrit 39.6 % (39.6-49.0); Lymphocytes % 25.8 % (15.3-44.8); MCV 103.5 fL (80-100); MPV 6.6 fL (7.6-11.3); RBC Red Blood Cell Count 3.82 M/uL (4.33-5.43)
[2021-12-29 17:16] LABS: Protime INR 1.02
--- NOTE | 2021-12-29 17:38 | RAD REPORT ---
EXAM DESCRIPTION: CT - Head Brain Wo Cont - 12/29/2021 5:33 pm CLINICAL HISTORY: syncope Headache, syncope, drowsiness COMPARISON: No comparisons TECHNIQUE: All CT scans are performed using dose optimization technique as appropriate and may inclu de automated exposure control or mA/KV adjustment according to patient size. FINDINGS: No intracranial hemorrhage, hydrocephalus or extra-axial fluid collection.No areas of brai n edema or evidence of midline shift. The paranasal sinuses and mastoids are clear. The calvarium is intact. IMPRESSION: No acute intracranial abnormality.
--- NOTE | 2021-12-29 17:44 | RAD REPORT ---
EXAM DESCRIPTION: RAD - Chest Single View - 12/29/2021 5:35 pm CLINICAL HISTORY: syncope Chest pain. COMPARISON: CHEST PA AND LAT 2 VIEW dated 05/15/2009; CHEST PA AND LAT 2 VIEW dated 02/01/2003 FINDINGS: Portable technique limits examination quality. The lungs are grossly clear. The heart is normal in size. No displaced fractures. IMPRESSION: No acute intrathoracic process suspected.
[2021-12-29 17:46] LABS: SARS-CoV-2 Antigen Rapid Res Negative (Negative)
[2021-12-29 17:52] LABS: Bilirubin Direct 0.2 mg/dL (0-0.2); Bilirubin Total 0.4 mg/dL (0.2-1.0); Magnesium 1.6 mg/dL (1.8-2.4); Potassium 3.2 mmol/L (3.5-5.1); Protein, Total 5.8 g/dL (6.4-8.2); Troponin High Sensitivity 9.4 pg/mL (<58.9)
--- NOTE | 2021-12-29 18:21 | EDPHYS ---
Physician Documentation [facility] Name: Malvin Collado Age: 51 yrs Sex: Male : 1970 Arrival Date: 12/29/2021 Time: 16:29 Bed 6 Private MD: ED Physician Alfonzo Henry HPI: 12/29 16:46 This 51 yrs old Male presents to ER via EMS with complaints of Syncope. ms3 16:46 The patient has experienced syncope, became unresponsive. Onset: The symptoms/episode ms3 began/occurred acutely, just prior to arrival. Duration: This was a single episode, that lasted 15 minute(s). Context: the episode(s) was witnessed, by family, . Associated injury: Right lower extremity: right knee, abrasion. Associated signs and symptoms: Pertinent positives: diaphoresis, diarrhea. Current symptoms: Currently, the patient is not experiencing any symptoms. 51-year-old male with past medical history of hypertension, rheumatoid arthritis, polychondritis, Sjogren's presents via [facility], EMS status post syncopal episode. Patient states he had a snow cone and then began feeling weird and sweating. Patient's states he was then lowered to the ground and was unresponsive for 15 minutes. Patient did have episode of bowel incontinence while unresponsive. Historical: - Allergies: 16:32 GOVIND INHIBITORS; kc6 - Immunization history:: Adult Immunizations unknown. - Social history:: Smoking status: unknown. ROS: 16:48 Constitutional: Negative for fever, and chills. Neck: Negative for injury, pain, and ms3 swelling, Cardiovascular: Negative for chest pain, and palpitations. Respiratory: Negative for shortness of breath, cough, wheezing, and pleuritic chest pain, Abdomen/GI: Negative for abdominal pain, nausea, vomiting, diarrhea, and constipation, MS/Extremity: Negative for injury and deformity. 16:48 Skin: Positive for abrasion(s). 16:48 Neuro: Positive for syncope. 16:48 All other systems are negative. Exam: 16:48 Constitutional: This is a well developed, well nourished patient who is awake, alert, ms3 and in no acute distress. Head/Face: Normocephalic, atraumatic. Neck: Trachea midline, no cervical lymphadenopathy. Supple, full range of motion without nuchal rigidity, or vertebral point tenderness. No Meningismus. Chest/axilla: Normal chest wall appearance and motion. Nontender with no deformity. Cardiovascular: Regular rate and rhythm with a normal S1 and S2. No gallops, murmurs, or rubs. Normal PMI, no JVD. No pulse deficits. Respiratory: Lungs have equal breath sounds bilaterally, clear to auscultation and percussion. No rales, rhonchi or wheezes noted. No increased work of breathing, no retractions or nasal flaring. Abdomen/GI: Soft, non-tender, with normal bowel sounds. No distension or tympany. No guarding or rebound. No evidence of tenderness throughout. 16:48 Skin: injury, abrasion(s), small abrasion noted, of the right knee. 17:10 ECG was reviewed by the Attending Physician. ms3 Vital Signs: 16:29 BP 96 / 62 RA Supine (auto/reg); Pulse 77 RA; Resp 16 S; Pulse Ox 97% on R/A; Weight kc6 79.38 kg (R); Height 5 ft. 4 in. (162.56 cm) (R); Pain 0/10; 17:56 BP 133 / 77; Pulse 74; Resp 19 S; Temp 98.4(O); Pulse Ox 99% on R/A; kc6 18:39 BP 131 / 78; Pulse 75; Resp 17 S; Pulse Ox 99% on R/A; Pain 0/10; kc6 19:30 BP 127 / 84; Pulse 79; Resp 16; Pulse Ox 97% on R/A; jb4 16:29 Body Mass Index 30.04 (79.38 kg, 162.56 cm) kc NIH Stroke Scale Scores: 18:22 NIHSS Score: 1 ms3 MDM: 16:45 Patient medically screened. ms3 16:48 Differential Diagnosis: cardiac arrhythmia, idiopathic syncope, seizure, vasovagal ms3 episode. 18:22 Data reviewed: vital signs, nurses notes, lab test result(s), EKG, and as a result, I ms3 will admit patient. Data interpreted: court recording monitor: rate is 77 beats/min, rhythm is. Counseling: I had a detailed discussion with the patient and/or guardian regarding: the historical points, exam findings, and any diagnostic results supporting the discharge/admit diagnosis, lab results, radiology results, the need for further work-up and treatment in the hospital. ED course: Discussed TNKase with patient and his . They do not wish to receive TNKase. Patient's NIH stroke scale 1 for missing his age. Discussed patient with Dr Monsivais and he would like EEG and MRI performed tomorrow. Discussed case with Kieran Chinag TECHNICAL SALES SUPPORT MANAGER, and he accepts patient on behalf of Dr Starkey. . 12/29 16:43 Order name: Basic Metabolic Panel; Complete Time: 17:59 ms3 12/29 16:43 Order name: CBC with Diff; Complete Time: 17:15 ms3 12/29 16:43 Order name: Hepatic Function; Complete Time: 17:59 ms3 12/29 16:43 Order name: Magnesium; Complete Time: 17:59 ms3 12/29 16:43 Order name: Protime (+inr); Complete Time: 17:59 ms3 12/29 16:43 Order name: Ptt, Activated; Complete Time: 17:59 ms3 12/29 16:43 Order name: Troponin High Sensitivity; Complete Time: 17:59 ms3 12/29 16:43 Order name: CXR XRAY; Complete Time: 17:59 ms3 12/29 16:46 Order name: CT Head Brain wo Cont; Complete Time: 17:59 ms3 12/29 17:17 Order name: SARS RAPID; Complete Time: 17:59 ms3 12/29 18:28 Order name: Glucose, Ancillary Testing; Complete Time: 19:10 EDMS 12/29 18:30 Order name: Glucose, Ancillary Testing EDMS 12/29 19:47 Order name: Urine Dipstick-Ancillary EDMS 12/29 16:43 Order name: EKG; Complete Time: 16:44 ms3 12/29 16:43 Order name: Cardiac monitoring; Complete Time: 17:16 ms3 12/29 16:43 Order name: EKG - Nurse/Tech; Complete Time: 17:16 ms3 12/29 16:43 Order name: IV Saline Lock; Complete Time: 17:05 ms3 12/29 16:43 Order name: Labs collected and sent; Complete Time: 17:05 ms3 12/29 16:43 Order name: NPO; Complete Time: 16:46 ms3 12/29 16:43 Order name: O2 Per Protocol; Complete Time: 16:46 ms3 12/29 16:43 Order name: O2 Sat Monitoring; Complete Time: 16:46 ms3 12/29 16:43 Order name: Urine Dipstick-Ancillary (obtain specimen); Complete Time: 19:46 ms3 12/29 17:14 Order name: Labs - recollect needed: recollect green top; Complete Time: 17:27 eb EC:10 Rate is 72 beats/min. Rhythm is regular. Left axis deviation noted. MI interval is ms3 normal. QRS interval is normal. Clinical impression: NSR with incomplete RBBB. Interpreted by me. Reviewed by me. Administered Medications: 18:32 Not Given (Other Intervention Used; othee): D50W 50 ml IVP once; (1 amp) kc6 18:39 Drug: D10 in Water [4ml/kg] 250 ml Route: IVP; Site: left antecubital; kc6 19:39 Drug: Potassium Effervescent Tablet 50 mEq Route: PO; jb4 19:39 Drug: Magnesium Sulfate 2 grams Route: IVPB; Infused Over: 2 hrs; Site: left jb4 antecubital; 19:39 Drug: Lactated Ringers Solution 1000 ml Route: IV; Rate: 125 ml/hr; Site: left jb4 antecubital; Disposition Summary: 12/29/21 18:20 Hospitalization Ordered Hospitalization Status: Observation ms3 Provider: Harrison Starkey ms3 Location: Telemetry/MedSurg (observation) ms3 Condition: Stable ms3 Problem: new ms3 Symptoms: are unchanged ms3 Bed/Room Type: [place] ms3 Room Assignment: [facility](12/29/21 19:24) Diagnosis - syncope ms3 - Hypoglycemia, unspecified ms3 - Hyponatremia ms3 - Left leg paresthesias ms3 Forms: - Medication Reconciliation Form ms3 - SBAR form ms3 NIH Stroke Scale - NIH Stroke Score Date: 12/29/2021 Time: 18:22 Total Score = 1 1a. Level of Consciousness (LOC) - 0(Alert) 1b. Level of Consciousness (LOC) (Month \T\ Age) - 1(One) 1c. LOC Commands (Open \T\ Closes Eyes/Cash Management Coordinator) - 0(Both) 2. Best Gaze (Lateral Gaze Paresis) - 0(Normal) 3. Visual Field Loss - 0(No visual loss) 4. Facial Palsy - 0(Normal) 5a. Left Arm: Motor (10-second hold) - 0(No drift) 5b. Right Arm: Motor (10-second hold) - 0(No drift) 6a. Left Leg: Motor (5-second hold - always test supine) - 0(No drift) 6b. Right Leg: Motor (5-second hold - always test supine) - 0(No drift) 7. Limb Ataxia (finger/nose \T\ heel/cunha - test with eyes open) - 0(Absent) 8. Sensory Loss (pinprick arms/legs/face) - 0(Normal) 9. Best Language: Aphasia (description/naming/reading) - 0(No aphasia) 10. Dysarthria (speech clarity - read or repeat words) - 0(Normal) 11. Extinction and Inattention (visual/tactile/auditory/spatial/personal) - 0(No abnormality) Initials: ms3 Signatures: Dispatcher [employer] EDMS Linda Liz RN RN mw Kieran Chiang, [facility] Usman Mayen RN RN jb4 Yaa Espinoza Marcus, DO DO ms3 Shayy Linton RN RN kc6 Corrections: (The following items were deleted from the chart) 19:24 18:20 ms3 mw
--- NOTE | 2021-12-29 18:21 | ER ---
Nurse's Notes [facility] Name: Malvin Collado Age: 51 yrs Sex: Male : 1970 Arrival Date: 12/29/2021 Time: 16:29 Bed 6 Private MD: Diagnosis: syncope;Hypoglycemia, unspecified;Hyponatremia;Left leg paresthesias Presentation: 12/29 16:29 Chief complaint: EMS states: client was watching his daughter play softball while kc6 eating a snocone. stated he got lightheaded and dizzy and sat to the floor. Ebola Screen: No symptoms or risks identified at this time. Initial Sepsis Screen: Does the patient meet any 2 criteria? No. Patient's initial sepsis screen is negative. Does the patient have a suspected source of infection? No. Patient's initial sepsis screen is negative. Risk Assessment: Do you want to hurt yourself or someone else? Patient reports no desire to harm self or others. Onset of symptoms was November 28, 2021. 16:29 Method Of Arrival: EMS: [facility] 16:29 Acuity: NIESHA 2 kc6 Triage Assessment: 16:32 General: Appears in no apparent distress. comfortable, Behavior is calm, cooperative, kc6 appropriate for age. Pain: Denies pain. EENT: No signs and/or symptoms were reported regarding the EENT system. Neuro: Lubin Agitation-Sedation Scale (RASS): 0 - Alert and Calm Level of Consciousness is awake, alert, obeys commands, Oriented to person, place, time, situation, Appropriate for age. Cardiovascular: Heart tones S1 S2 present Capillary refill < 3 seconds. Respiratory: Airway is patent Trachea midline Respiratory effort is even, unlabored, Respiratory pattern is regular, symmetrical, Breath sounds are clear bilaterally. GI: No signs and/or symptoms were reported involving the gastrointestinal system. : No signs and/or symptoms were reported regarding the genitourinary system. Derm: Skin has skin tears on right knee Skin is pink, warm \T\ dry. Musculoskeletal: No signs and/or symptoms reported regarding the musculoskeletal system. Circulation, motion, and sensation intact. Capillary refill < 3 seconds, Range of motion: intact in all extremities. Historical: - Allergies: 16:32 GOVIND INHIBITORS; kc6 - Immunization history:: Adult Immunizations unknown. - Social history:: Smoking status: unknown. Screenin:36 Abuse screen: Denies threats or abuse. Denies injuries from another. Nutritional kc6 screening: No deficits noted. Tuberculosis screening: No symptoms or risk factors identified. Fall Risk No fall in past 12 months (0 pts). No secondary diagnosis (0 pts). No IV (0 pts). Ambulatory Aid- None/Bed Rest/Nurse Assist (0 pts). Gait- Normal/Bed Rest/Wheelchair (0 pts) Mental Status- Oriented to own ability (0 pts). Total Meléndez Fall Scale indicates No Risk (0-24 pts). Assessment: 16:35 Reassessment: please see triage assessment. [facility] 16:35 Neuro: Lubin Agitation-Sedation Scale (RASS): 0 - Alert and Calm Level of kc Consciousness is awake, alert, obeys commands, Oriented to person, place, time, situation, Appropriate for age. Cardiovascular: Heart tones S1 S2 present Capillary refill < 3 seconds Rhythm is sinus rhythm. 17:28 Reassessment: Patient appears in no apparent distress at this time. No changes from 6 previously documented assessment. Patient and/or family updated on plan of care and expected duration. Pain level reassessed. Patient is alert, oriented x 3, equal unlabored respirations, skin warm/dry/pink. 18:39 Reassessment: Patient appears in no apparent distress at this time. No changes from 6 previously documented assessment. Patient and/or family updated on plan of care and expected duration. Pain level reassessed. Patient is alert, oriented x 3, equal unlabored respirations, skin warm/dry/pink. 19:14 Reassessment: Patient appears in no apparent distress at this time. Patient and/or jb4 family updated on plan of care and expected duration. Pain level reassessed. Patient is alert, oriented x 3, equal unlabored respirations, skin warm/dry/pink. Vital Signs: 16:29 BP 96 / 62 RA Supine (auto/reg); Pulse 77 RA; Resp 16 S; Pulse Ox 97% on R/A; Weight kc6 79.38 kg (R); Height 5 ft. 4 in. (162.56 cm) (R); Pain 0/10; 17:56 BP 133 / 77; Pulse 74; Resp 19 S; Temp 98.4(O); Pulse Ox 99% on R/A; kc6 18:39 BP 131 / 78; Pulse 75; Resp 17 S; Pulse Ox 99% on R/A; Pain 0/10; kc6 19:30 BP 127 / 84; Pulse 79; Resp 16; Pulse Ox 97% on R/A; jb4 16:29 Body Mass Index 30.04 (79.38 kg, 162.56 cm) kc6 NIH Stroke Scale Scores: 18:22 NIHSS Score: 1 ms3 ED Course: 16:29 Patient arrived in ED. ph 16:29 Shayy Linton, RN is Primary Nurse. kc6 16:32 Triage completed. kc6 16:32 Alfonzo Henry DO is Attending Physician. ms3 16:37 Arm band placed on right wrist. kc6 16:44 Maintain EMS IV. Dressing intact. Good blood return noted. Site clean \T\ dry. Gauge \T\ rochelle 6 site: 18G LAC. 17:05 Basic Metabolic Panel Sent. kc6 17:05 CBC with Diff Sent. kc6 17:05 Hepatic Function Sent. kc6 17:05 Magnesium Sent. kc6 17:05 Protime (+inr) Sent. kc6 17:05 Ptt, Activated Sent. kc6 17:05 Troponin High Sensitivity Sent. kc6 17:06 Inserted saline lock: 20 gauge in right antecubital area, using aseptic technique. kc6 Blood collected. 17:27 SARS RAPID Sent. kc6 17:34 CT Head Brain wo Cont In Process Unspecified. EDMS 17:36 CXR XRAY In Process Unspecified. EDMS 18:19 Harrison Starkey MD is Hospitalizing Provider. ms3 18:30 Glucose, Ancillary Testing Sent. kc6 20:17 No provider procedures requiring assistance completed. Patient admitted, IV remains in jb4 place. Administered Medications: 18:32 Not Given (Other Intervention Used; othee): D50W 50 ml IVP once; (1 amp) kc6 18:39 Drug: D10 in Water [4ml/kg] 250 ml Route: IVP; Site: left antecubital; kc6 19:39 Drug: Potassium Effervescent Tablet 50 mEq Route: PO; jb4 19:39 Drug: Magnesium Sulfate 2 grams Route: IVPB; Infused Over: 2 hrs; Site: left jb4 antecubital; 19:39 Drug: Lactated Ringers Solution 1000 ml Route: IV; Rate: 125 ml/hr; Site: left jb4 antecubital; Outcome: 18:20 Decision to Hospitalize by Provider. ms3 20:17 Admitted to Med/surg accompanied by tech, via wheelchair, room 215, with chart. jb4 20:17 Condition: stable 20:17 Discharge instructions given to patient, Instructed on the need for admit, Demonstrated understanding of instructions. 20:17 Patient left the ED. jb4 NIH Stroke Scale - NIH Stroke Score Date: 12/29/2021 Time: 18:22 Total Score = 1 1a. Level of Consciousness (LOC) - 0(Alert) 1b. Level of Consciousness (LOC) (Month \T\ Age) - 1(One) 1c. LOC Commands (Open \T\ Closes Eyes/Wool Grader) - 0(Both) 2. Best Gaze (Lateral Gaze Paresis) - 0(Normal) 3. Visual Field Loss - 0(No visual loss) 4. Facial Palsy - 0(Normal) 5a. Left Arm: Motor (10-second hold) - 0(No drift) 5b. Right Arm: Motor (10-second hold) - 0(No drift) 6a. Left Leg: Motor (5-second hold - always test supine) - 0(No drift) 6b. Right Leg: Motor (5-second hold - always test supine) - 0(No drift) 7. Limb Ataxia (finger/nose \T\ heel/cunha - test with eyes open) - 0(Absent) 8. Sensory Loss (pinprick arms/legs/face) - 0(Normal) 9. Best Language: Aphasia (description/naming/reading) - 0(No aphasia) 10. Dysarthria (speech clarity - read or repeat words) - 0(Normal) 11. Extinction and Inattention (visual/tactile/auditory/spatial/personal) - 0(No abnormality) Initials: ms3 Signatures: Dispatcher [employer] Nora Etienne RN RN Usman Huff RN RN jb4 Alfonzo Henry DO DO ms3 Shayy Linton, RN RN kc6 Corrections: (The following items were deleted from the chart) 16:36 16:29 Acuity: NIESHA 3 kc6 kc6
[2021-12-29] MEDS ORDERED: D10W 250 ML IV ONE (18:35)
[2021-12-29] MEDS ORDERED: POTASSIUM 25 MEQ EFFERV TAB ONE (19:26)
[2021-12-29] MEDS ORDERED: Ringers Lactate 1,000 ML IV ONE (19:27)
[2021-12-29] MEDS ORDERED: Magnesium Sulfate 2gm IVPB 2 G/50 ML BAG IV ONE (19:27)
[2021-12-29 19:46] LABS: Urine Blood Negative (Negative); Urine Glucose Negative (Negative); Urine Protein Negative (Negative); Urine pH 5.5 (5.0-7.0)
--- NOTE | 2021-12-29 19:50 | P.HP ---
Certification for Inpatient Patient admitted to: Observation With expected LOS: <2 Midnights Patient will require the following post-hospital care: None Practitioner: I am a practitioner with admitting privileges, knowledge of patient current condition, hospital course, and medical plan of care. Services: Services provided to patient in accordance with Admission requirements found in Title 42 Section 412.3 of the Code of Federal Regulations <Kieran Chiang - Last Filed: 12/29/21 19:44> Patient History Date of Service: 12/29/21 Reason for admission: Syncope History of Present Illness: 51-year-old male with history of hypertension, GERD, rheumatoid arthritis, Sjogren's, polychondritis presents to the emergency department for syncope. He was at a baseball game with his when he began to feel unwell/like something "was not right", he then stood up and had a syncopal episode and was assisted to the ground by his . Patient lost consciousness for approximately 15 minutes per his , during that time he was pale, diaphoretic and had twitching in both of his hands as well as experiencing incontinence of urine/stool. Upon awakening patient reports he began to experience left lower extremity paresthesias/numbness/weakness. He was transported to the emergency department for further evaluation. His EKG showed normal sinus rhythm no signs of ST elevation or block, CT head was negative for acute findings chest x-ray unremarkable labs were significant for sodium 131 potassium 3.2 chloride 94 magnesium 1.6 glucose of 55 although blood sugar was measured by EMS around 200 during transport. Patient arrived within window for TNK, his NIH is a 1 for left lower extremity paresthesias/subjective weakness, ED physician and myself both spoke with patient and who declined TN K given concern for complications and unclear etiology of syncopal event/paresthesias with possible seizure activity. ED provider also discussed case with neurology who recommends further evaluation in the hospital including EEG, MRI. - Past Medical/Surgical History Diabetic: No -: Hypertension -: RA/Sjogren's/polychondritis -: GERD -: Hiatal hernia repair x2 -: Gastric bypass -: C-spine disc replacement -: Bicep tendon repair bilateral -: Cholecystectomy Psychosocial/ Personal History: Patient lives at home with his - Family History Mother -: Liver disease Brother -: Hypertension Sister Notes: Thyroid disease - Social History Smoking Status: Never smoker Alcohol use: Yes CD- Drugs: No Caffeine use: Yes Place of Residence: Home <Kieran Chiang - Last Filed: 12/29/21 19:44> Date of Service: 12/30/21 <JakyHarrison - Last Filed: 12/30/21 18:10> Allergies GOVIND Inhibitors Adverse Reaction (Intermediate, Verified 06/13/12 07:35) COUGH Review of Systems 10-point ROS is otherwise unremarkable Neurological: Other (Left lower extremity paresthesias, syncope), As per HPI <Kieran Chiang - Last Filed: 12/29/21 19:44> Physical Examination - Physical Exam General: Alert, In no apparent distress, Oriented x3 HEENT: Atraumatic, PERRLA, Mucous membr. moist/pink, EOMI, Sclerae nonicteric Neck: Supple, 2+ carotid pulse no bruit, No LAD, Without JVD or thyroid abnormality Respiratory: Clear to auscultation bilaterally, Normal air movement Cardiovascular: Regular rate/rhythm, Normal S1 S2 Capillary refill: <2 Seconds Gastrointestinal: Normal bowel sounds, No tenderness Musculoskeletal: No tenderness Integumentary: No rashes Neurological: Normal gait, Normal speech, Normal strength at 5/5 x4 extr, Normal tone, Cranial nerves 3-12 intact, Normal affect, Abnormal sensation (Left lower extremity decree sensation/numbness) - Studies Laboratory Data (last 24 hrs) 12/29/21 17:25: Sodium 131 L, Potassium 3.2 L, BUN 9, Creatinine 1.16, Glucose 55 L, Magnesium 1.6 L, Total Bilirubin 0.4, AST 58 H, ALT 34, Alkaline Phosphatase 69 12/29/21 17:05: PT 11.2, INR 1.02, APTT 25.5 12/29/21 17:05: WBC 5.30, Hgb 13.4 L, Hct 39.6, Plt Count 195 <Kieran Chiang - Last Filed: 12/29/21 19:44> - Studies Laboratory Data (last 24 hrs) 12/30/21 02:47: Sodium 128 L, Potassium 3.5, BUN 7, Creatinine 0.90, Glucose 219 H, Magnesium 1.7 L, Total Bilirubin 0.6, AST 68 H, ALT 36, Alkaline Phosphatase 75, Triglycerides 34, Cholesterol 153, HDL Cholesterol 111 H, Cholesterol/HDL Ratio 1.38 12/30/21 02:47: WBC 6.00, Hgb 13.9, Hct 40.2, Plt Count 195 <Harrison Starkey - Last Filed: 12/30/21 18:10> Assessment and Plan - Plan Assessment: Syncope Left lower extremity paresthesia Hypertension RA/Sjogren's/polychondritis GERD Hypokalemia Hypomagnesemia Mild hyponatremia Plan: Syncope: EKG shows normal sinus rhythm without any STEMI criteria or blocks, CT head negative for acute findings, patient did lose bowel/bladder incontinence had prolonged LOC around 15 minutes with diaphoresis. reported seeing twitching in both hands during episode, case was discussed with neurology who recommends EEG/MRI. We will also rule out PE, D-dimer pending. Patient does take testosterone supplementation. Left lower extremity paresthesia: Onset after awakening from syncope/possible seizure. Considerations including CVA, Joshua's paralysis. Patient declined TNK when offered in ED concern for risk of complication/bleeding. NIH is 1 for left lower extremity paresthesias. Neurology consult in place, aspirin, statin ordered as well as MRI stroke protocol, echocardiogram, physical therapy, EEG. Hypertension: Continue home medications as appropriate, hold hydrochlorothiazide for now given elective abnormalities. RA/Sjogren's/polychondritis: Continue home medications GERD:Continue home medications Hypokalemia: Protocol in place, replaced in ED Hypomagnesemia: Protocol in place, replaced in ED Mild hyponatremia: Continue LR overnight. DVT PPX: Lovenox Code status: Full Discharge Plan: Home Plan to discharge in: 24 Hours - Advance Directives Does patient have a Living Will: No Does patient have a Durable POA for Healthcare: No - Code Status/Comfort Care Code Status Assessed: Yes (Full code) Critical Care: No Time Spent Managing Pts Care (In Minutes): 70 <Kieran Chiang - Last Filed: 12/29/21 19:44> Physician Review: Patient Assessed, Agree with Above Assessment and Plan <Harrison Starkey - Last Filed: 12/30/21 18:10>
[2021-12-29] MEDS ORDERED: ONDANSETRON 4 MG/2 ML VIAL IV PRN (20:11)
[2021-12-29] MEDS: ATORVASTATIN 40 MG TAB PO SCH (21:42)
[2021-12-30 03:51] LABS: Absolute Lymphocytes (CBC) 2.1 K/uL (0.7-4.9); Hematocrit 40.2 % (39.6-49.0); Lymphocytes % 34.5 % (15.3-44.8); MCV 102.3 fL (80-100); MPV 7.3 fL (7.6-11.3); RBC Red Blood Cell Count 3.93 M/uL (4.33-5.43)
[2021-12-30 04:36] LABS: Albumin 3.1 g/dL (3.4-5.0); Bilirubin Total 0.6 mg/dL (0.2-1.0); Folic Acid, (Folate) 9.1 ng/mL (3.1-17.5); Magnesium 1.7 mg/dL (1.8-2.4); Potassium 3.5 mmol/L (3.5-5.1); Protein, Total 6.2 g/dL (6.4-8.2); Thyroid Stimulating Hormone 1.51 uIU/mL (0.360-3.740); Troponin High Sensitivity 9.5 pg/mL (<58.9)
[2021-12-30] MEDS: Ringers Lactate 1,000 ML IV SCH ×2 (06:43→20:15)
[2021-12-30] MEDS ORDERED: POTASSIUM CL SA 10 MEQ TAB PO ONE (09:00)
[2021-12-30] MEDS ORDERED: MAGNESIUM SULFATE 1 gm IVPB 1 GM/100 ML BAG IV ONE (09:00)
--- NOTE | 2021-12-30 09:31 | RAD REPORT ---
EXAM DESCRIPTION: MRI - Brain W/Wo Cont - 12/30/2021 9:05 am CLINICAL HISTORY: Syncope COMPARISON: head CT December 29, 2021 TECHNIQUE: Axial, sagittal, and coronal magnetic images of the brain were obtained. 18 cc MultiHance administered intravenously FINDINGS: No significant abnormal signal within the brain is seen. The ventricles are normal in caliber. Diffusion-weighted/ ADC mapping sequences do not demonstrate evidence of an acute infarction. No abnormal enhancement within the brain is seen. An extra-axial fluid collection is not noted. Fluid within the sinuses/mastoids is not seen IMPRESSION: No acute intracranial abnormality displayed
[2021-12-30] MEDS: ENOXAPARIN 40 MG/0.4 ML SQ SCH (09:37)
--- NOTE | 2021-12-30 09:37 | RAD REPORT ---
EXAM DESCRIPTION: MRI - MRA Neck W/Wo Cont - 12/30/2021 9:05 am CLINICAL HISTORY: Syncope COMPARISON: None. TECHNIQUE: Magnetic resonance angiogram of the neck was performed. 19 cc MultiHance was administered intravenously. 3D MIPS reconstruction performed FINDINGS: 12 millimeter area of narrowing involves the mid right vertebral artery. Left vertebral artery is normal. The common carotid, internal carotid and external carotid arteries do not demonstrate a significant s tenosis. IMPRESSION: 12 millimeter area of narrowing involving the right vertebral artery. This could represe nt a dissection of indeterminate age. NASCET criteria used. Mild 0-49% stenosis Moderate 50-69% stenosis Severe 70-99% stenosis
[2021-12-30] MEDS: ASPIRIN EC 81 MG TAB PO SCH (09:38)
--- NOTE | 2021-12-30 09:39 | RAD REPORT ---
EXAM DESCRIPTION: MRI - MRA Head Wo Cont - 12/30/2021 9:05 am CLINICAL HISTORY: Syncope COMPARISON: None. TECHNIQUE: Magnetic resonance angiogram was performed. 3D MIPS reconstruction performed FINDINGS: A1 segment right anterior cerebral artery is hypoplastic origin right posterior cerebral artery The remainder of the anterior cerebral, middle cerebral, posterior cerebral, distal internal carotid and basilar arteries do not demonstrate a significant stenosis. An aneurysm is not displayed. IMPRESSION: No acute abnormality is displayed
--- NOTE | 2021-12-30 11:31 | RAD REPORT ---
EXAM DESCRIPTION: CT - Chest For Pe Angio - 12/30/2021 1:40 am CLINICAL HISTORY: Syncope, elevated DDimer COMPARISON: None Available. TECHNIQUE: CTA of the chest obtained following the uncomplicated intravenous administration of iodin ated contrast.. 3-D/MIP reformatted images of the chest available for evaluation. This exam was perfo rmed according to our departmental dose-optimization program, which includes automated exposure contr ol, adjustment of the mA and/or kV according to patient size and/or use of iterative reconstruction t echnique. FINDINGS: Chest: Pulmonary arteries: Contrast bolus is adequate.No filling defects identified in the pulmonary arterie s to suggest pulmonary embolus. Thyroid: No abnormalities of the visualized thyroid. Great Vessels: Great vessels have normal anatomic configuration. Thoracic Aorta: No abnormalities of the thoracic aorta identified. Heart: No cardiomegaly, significant pericardial effusion, or coronary artery atherosclerosis Lymph Nodes: No enlarged mediastinal lymph nodes identified. Esophagus: No abnormalities of the esophagus identified. Other: No additional findings. Lungs: No airspace opacities identified. Pleura: No pleural effusion or pneumothorax. Trachea/Airways: No abnormalities of the visualized trachea or airways. Bones: Mild multilevel endplate spondylosis and facet arthropathy. Upper Abdomen: Limited images of the upper abdomen demonstrate no definite abnormalities of visualize d portions of the liver, pancreas, spleen, adrenal glands, or kidneys. IMPRESSION: No pulmonary embol us. No acute pneumonic process. Electronically signed by: Nacho Mitchell 12/30/2021 2:35 AM SUBSTATION TECHNICIAN Due to temporary technical issues with the PACS/Fluency reporting system, reports are being signed by the in house radiologists without review as a courtesy to insure prompt reporting. The interpreting radiologist is fully responsible for the content of the report.
--- NOTE | 2021-12-30 12:12 | EKG ---
Test Date: 2021-12-29 Test Time: 17:10:36 Level Vial Inspector And Tester: ZOË MEASUREMENT RESULTS: Intervals: Rate: 72 AL: 186 QRSD: 110 QT: 400 QTc: 438 [place]: P: 43 AL: 186 QRS: -25 T: 7 INTERPRETIVE STATEMENTS: Normal sinus rhythm Incomplete right bundle branch block Borderline ECG Compared to ECG 09/22/2013 17:47:08 No significant changes Electronically Signed On 12-30-21 12:10:57 GRATED CHEESE MAKER by Jered Jha
--- NOTE | 2021-12-30 13:14 | CON ---
Date of Consultation: 12/30/2021 Reason For Consultation: Syncope. History Of Present Illness: Mr. Collado is 51 years old. Has a history of hypertension, rheumatoid a rthritis, Sjogren syndrome. Came in with syncope, bowel incontinence. Symptoms lasted for about 15 minutes, the differential diagnosis being seizure or CVA. Denied any chest pain, nausea, vomiting, d iaphoresis, PND, orthopnea, pedal edema, or palpitation. Has ruled out for an MA. Chest x-ray is ne gative. CT of his head was negative. Sodium was low at 128. D-dimer was 1401. Past Medical History: As stated above. Allergies: GOVIND INHIBITORS. Medications: Include losartan with hydrochlorothiazide, metoprolol, sulfasalazine, Humira, and Plaqu enil. Review of Systems: Negative. Social History: Negative. Family History: Negative. Physical Examination: Vital Signs: Stable, afebrile. HEENT: Negative. Neck: Supple with no bruit. Chest: Clear. Cardiac: Revealed a regular rhythm and rate. No murmurs, gallops, or rubs. Abdomen: Benign. Extremities: Revealed no clubbing, cyanosis, or edema. Diagnostic Data: As stated earlier. EKG is normal. Impression And Plan: Syncope, most likely seizure disorder. Neurology consultation is pending. Ech ocardiogram is pending. I think he will need an outpatient event monitor and Lexiscan to rule out ar rhythmias and coronary artery disease. His other problems include hypertension, Sjogren and rheumato id arthritis. D-dimer was elevated. CT, however, is negative. Sodium was 128. I think we need to hold his losartan with hydrochlorothiazide for now. We will continue to follow. KRISTIAN/OTILIO Voice ID: [id number] Report ID: [id number]
--- NOTE | 2021-12-30 18:16 | P.PN ---
Subjective Date of Service: 12/30/21 Chief Complaint: Syncope No acute events since admission. He was resting comfortably with the EEG leads on his head. There has been no further seizurelike activity since admission. He denies any headaches, numbness/tingling. He denies any additional concerns at this time Review of Systems 10-point ROS is otherwise unremarkable Neurological: Other (LLE parasthesias) Physical Examination - Vital Signs Temperature: 97.5 F Blood Pressure: 122/71 Pulse: 73 Respirations: 18 Pulse Ox (%): 100 - Physical Exam General: Alert, In no apparent distress, Oriented x3 HEENT: Atraumatic, PERRLA, Mucous membr. moist/pink, EOMI, Sclerae nonicteric Neck: Supple, JVD not distended Respiratory: Clear to auscultation bilaterally, Normal air movement Cardiovascular: No edema, Regular rate/rhythm, Normal S1 S2, No gallops, No rubs, No murmurs Gastrointestinal: Normal bowel sounds, Soft and benign, Non-distended, No tenderness, No rebound, No guarding Musculoskeletal: No clubbing Integumentary: No rashes Neurological: Normal speech, Normal strength at 5/5 x4 extr, Normal tone, Sensation intact (with exception of LLE parasthesias), Cranial nerves 3-12 intact, Normal affect - Studies Laboratory Data (last 24 hrs) 12/30/21 02:47: Sodium 128 L, Potassium 3.5, BUN 7, Creatinine 0.90, Glucose 219 H, Magnesium 1.7 L, Total Bilirubin 0.6, AST 68 H, ALT 36, Alkaline Phosphatase 75, Triglycerides 34, Cholesterol 153, HDL Cholesterol 111 H, Cholesterol/HDL Ratio 1.38 12/30/21 02:47: WBC 6.00, Hgb 13.9, Hct 40.2, Plt Count 195 Assessment And Plan - Plan # Right Vertebral Artery Dissection # Syncopal Episode - Convulsive Syncope vs Seizure? # Left Lower Extremity Parasthesia - question of Joshua's paralysis? - Evaluation thus far: - CT head = "no acute intracranial abnormality." - MRI head = "no acute intracranial abnormality displayed." - MRA head = "no acute abnormality is displayed." - MRA neck = "12 millimeter area of narrowing involving the right vertebral artery. This could represent a dissection of indeterminate age." - Management plan: - Neurology consulted and spoke with Dr. Monsivais - recommendations appreciated - Recommended transfer to [facility] for neurosurgery evaluation - Initiated transfer via transfer center - Doc-to-doc completed with [facility] hospitalist (Dr. Padmini Odom), who has accepted her for transfer - Doc-to-doc completed with [facility] neurology (Dr. Arzate), who stated that he is uncertain if Mr. Collado needs to be transferred - He and Dr. Monsivais will discuss this further and let me know their decision - In the interim, they have recommended aspirin + atorvastatin - q4hr neuro checks # Elevated D-Dimer likely due to above - D-Dimer = 1401 - CT chest angiogram = "no pulmonary embolus. No acute pneumonic process." # Rheumatoid Arthritis # Relpasing Polychondritis # Sjogren's Syndrome - Continue home medications # Hypertension # Hyponatremia, Hypokalemia, Hypomagnesemia - possibly secondary to Hydrochlorothiazide - Hold HCTZ, gentle hydration Harrison Starkey M.D.
[2021-12-30] MEDS: ATORVASTATIN 40 MG TAB PO SCH (20:17)
[2021-12-30] MEDS: levETIRAcetam 500 MG TAB PO SCH (20:17)
--- NOTE | 2021-12-31 00:06 | CON ---
Reason For Consultation: Consultation called because of new onset seizure-like activity and possible dissection in the right vertebral artery. History Of Present Illness: Mr. Collado is a 51-year-old patient with hypertension, gastroesophageal reflux disease with gastric bypass surgery and has cervical disk herniation who comes to [facility] with apparent prolonged syncopal episode and loss of bowel control. The patient's is at bedside and said she noticed the episode that actually brought him to hospital. He was at a [employer] game when the patient himself started to feel that something was not right. Apparently thought he needed some air and tried to get something to drink, but as he walked towards his car, he became more diaphoretic and suddenly collapsed without hitting his head. He remained, she said " weight" an d again loss of bladder control and remained in this state up to about 15 minutes. During that time, he had some hand shaking, but she did not see tongue biting and his eyes perhaps rolled a bit, but t here was no rhythmic movement of the eyes. By the time, [facility] got there, he was beginning to get his bearing, but was somewhat disoriented and confused. He came to [facility] and had a CT scan, which showed no acute ischemic or hemorrhagic abnormalities. Subsequent brain MRI ruled out any stroke. However, MRA of his neck showed a 12 mm segment of possible dissection in the left vertebral artery. Otherwise in the head and neck, unremarkable findings. Since his arriva l to the hospital, he had no additional episodes and he actually has been given Keppra and he is on 5 00 mg twice daily. He has aspirin Lovenox and Zofran as needed. The patient's and his deny any prior episodes of seizures. No seizures as a child. No febrile seizures as well. His laboratory studies did show normal white blood cell count and essentially unre markable hemoglobin and hematocrit, INR normal at 1.02. Chemistries show sodium of 131, potassium lo w at 3.2, calcium low at 7.9, magnesium low at 1.6. Liver function studies otherwise show slightly e levated AST of 68, LDL 35, HDL 111. B12 879. TSH 1.51, free T4 0.88. Urinalysis unremarkable. COV ID-19 test was negative. Past Medical History: As noted including hypertension, rheumatoid arthritis, and gastroesophageal re flux. Past Surgical History: Gastric bypass, biceps tendon repair, and cholecystectomy. Allergies: GOVIND INHIBITORS. Family History: Liver disease in mother, hypertension in brother, and thyroid disease in sister. Social History: No tobacco use. Occasional alcohol and caffeinated beverages. Review of Systems: He reports no fevers, chills, nausea, or vomiting. No significant myalgias, arthralgias, rash, heada rajni, or weight change. No psychiatric issues. No dermatological issues. No gastrointestinal or gen itourinary issues prior to this episode. Physical Examination: Vital Signs: Blood pressure 122/71, pulse 73, respiratory rate 16, temperature 97.5, oxygen saturati on 100% on room air. Orthostatic blood pressures: While lying 98/60, pulse 74; sitting 120/73, puls e 86; standing 119/77, pulse 94. He is not symptomatic. Neurologic: Cranial nerves intact 2 through 12. Motor intact of lower extremities at 5/5. On senso ry exam reports mild dysesthesia, slight numbness as well in the left lower extremity below the knee compared to the right side, otherwise sensory exam in the lower extremities. Intact in terms of coor dination and in terms of his gait, he was independent with static dynamic balance and he ambulated wi th no assistive device being required. Assessment: Mr. Collado is a 51-year-old patient with possible new onset seizures with multiple elect rolytes being abnormal as noted. He did lose bowel control and likely prolonged seizure episode. He also has dyslipidemia. Plan: Keppra 500 mg twice daily, aspirin 81 mg daily. He also has a possible dissection on the left vertebral artery. The transfer center in [place] was contacted. I spoke with the neurologist there who would be accepting the patient and he says they do not wish to do anything acutely for the patie nt given that he is now not likely symptomatic from the vertebral artery possible dissection. It was discussed that the patient likely could benefit from a 4 vessel angiogram, but they refused to take a direct transfer at this point. They say that is an outpatient workup. The patient will be dischar ge with aspirin, Plavix, folic acid, statin, and Keppra and given information to make an appointment to be seen in [place] for possible 4-vessel angiogram and intervention as appropriate. Otherwise he can be discharged. SARAHY/OTILIO Voice ID: [id number] Report ID: [id number]
[2021-12-31 04:20] LABS: Absolute Lymphocytes (CBC) 1.8 K/uL (0.7-4.9); Hematocrit 35.3 % (39.6-49.0); Lymphocytes % 48.5 % (15.3-44.8); MCV 102.9 fL (80-100); MPV 7.2 fL (7.6-11.3); RBC Red Blood Cell Count 3.43 M/uL (4.33-5.43)
[2021-12-31 04:35] LABS: Albumin 2.9 g/dL (3.4-5.0); Bilirubin Total 0.7 mg/dL (0.2-1.0); Magnesium 1.8 mg/dL (1.8-2.4); Potassium 3.8 mmol/L (3.5-5.1); Protein, Total 5.8 g/dL (6.4-8.2)
[2021-12-31 05:05] LABS: Blood Morphology Comment NOT SEEN (NOT SEEN); Platelet Estimate ADEQ
[2021-12-31] MEDS: Ringers Lactate 1,000 ML IV SCH ×2 (06:40→11:00)
[2021-12-31 08:27] VITALS: TEMP 98.3
[2021-12-31] MEDS ORDERED: POTASSIUM CL SA 10 MEQ TAB PO ONE (09:00)
[2021-12-31] MEDS ORDERED: CLOPIDOGREL 75 MG TABLET PO SCH (09:00)
[2021-12-31] MEDS ORDERED: FOLIC ACID 1 MG TABLET PO SCH (09:00)
[2021-12-31] MEDS ORDERED: MAGNESIUM SULFATE 1 gm IVPB 1 GM/100 ML BAG IV ONE (09:00)
[2021-12-31] MEDS: levETIRAcetam 500 MG TAB PO SCH (09:28)
[2021-12-31] MEDS: ASPIRIN EC 81 MG TAB PO SCH (09:28)
[2021-12-31] MEDS: ENOXAPARIN 40 MG/0.4 ML SQ SCH (09:28)
[2021-12-31 12:29] VITALS: BP 115/68
--- NOTE | 2021-12-31 14:35 | ECHO ---
HEIGHT: 5 ft 4 in WEIGHT: 175 lb 0 oz DATE OF STUDY: 12/31/[address]: Kieran Chiang NP 2-DIMENSIONAL: YES M.MODE: YES DOPPLER: YES COLOR FLOW: YES TDS: PORTABLE: YES DEFINITY: BUBBLE STUDY: DIAGNOSIS: SYNCOPE CARDIAC HISTORY: CATHERIZATION: SURGERY: PROSTHETIC VALVE: PACEMAKER: MEASUREMENTS (cm) DIASTOLIC (NORMALS) SYSTOLIC (NORMALS) IVSd 1.1 (0.6-1.2) LA Diam 3.4 (1.9-4.0) LVEF 65% LVIDd 3.7 (3.5-5.7) LVIDs 2.4 (2.0-3.5) %FS 35% LVPWd 1.2 (0.6-1.2) Ao Diam 2.8 (2.0-3.7) 2 DIMENSIONAL ASSESSMENT: RIGHT ATRIUM: NORMAL LEFT ATRIUM: NORMAL RIGHT VENTRICLE: NORMAL LEFT VENTRICLE: NORMAL TRICUSPID VALVE: MILD TRICUSPID REGURGITATION MITRAL VALVE: MILD MITRAL REGURGITATION PULMONIC VALVE: NORMAL AORTIC VALVE: MILD AORTIC INSUFFICIENCY PERICARDIAL EFFUSION: NONE AORTIC ROOT: NORMAL LEFT VENTRICULAR WALL MOTION: NORMAL DOPPLER/COLOR FLOW: SEE BELOW COMMENTS: NORMAL LEFT VENTRICULAR EJECTION FRACTION 60-65%. NORMAL WALL MOTION. MILD TRICUSPID REGURGITATION/ MITRAL REGURGITATION. MILD AORTIC REGURGITATION. TECHNOLOGIST: JOSETTE HUNTER
--- NOTE | 2021-12-31 15:01 | P.DS ---
Admission Date: 12/29/21 Discharge Date: 12/31/21 Disposition: ROUTINE DISCHARGE Discharge Condition: GOOD Reason for Admission: Syncope Consultations: 1. Neurology Hospital Course: DIAGNOSES: # Right Vertebral Artery Dissection # Syncopal Episode - Convulsive Syncope vs Seizure? # Left Lower Extremity Parasthesia - question of Joshua's paralysis? # Elevated D-Dimer likely due to above # Rheumatoid Arthritis # Relpasing Polychondritis # Sjogren's Syndrome # Hypertension # Hyponatremia, Hypokalemia, Hypomagnesemia - possibly secondary to Hydrochlorothiazide (resolved) HOSPITAL COURSE: Mr. Malvin Collado is a pleasant 51 year old male with a past medical history significant for rheumatoid arthritis, relapsing polychondritis, Sjogren's syndrome, and hypertension who was admitted to the [facility] on 12/29/2021 for a syncopal episode. He was admitted to the Medicine service. Based on his history, it appears that his episode may have represented a seizure, but he did not have any recurrent episodes while hospitalized. His evaluation revealed a CT head with "no acute intracranial abnormality," an MRI head with "no acute intracranial abnormality displayed," an MRA head with "no acute abnormality is displayed," and an MRA neck with "12 millimeter area of narrowing involving the right vertebral artery. This could represent a dissection of indeterminate age." Neurology was consulted and he was evaluated by Dr. Monsivais. He recommended transfer to [facility] for a Neurosurgery evaluation. I completed a doc-to-doc with [facility] hospitalist, Dr. Odom, who accepted the transfer pending Neurology approval. Dr. Monsivais discussed with [facility] Neurology (Dr. Arzate), who discussed with [facility] Neurosurgery. Per Dr. Monsivais, Neurosurgery felt that he did not require transfer and could be managed as an outpatient. He recommended discharge on aspirin, atorvastatin, folic acid, and clopidogrel. Dr. Monsivais has cleared him for discharge with close outpatient follow-up. I have advised that he schedule an appointment as soon as possible with [facility] Neurosurgery. He and his verbalized understanding. In regards to his electrolyte derangements, it was thought to be secondary to hydrochlorothiazide. His losartanhydrochlorothiazide was discontinued, and he was sent a new prescription for losartan. On 12/31/2021, he was seen on rounds and deemed medically stable for discharge. He was discharged with instructions to schedule follow-up appointments with his PCP (Dr. Kaminski), Neurology (Dr. Monsivais), and [facility] Neurosurgery. He was provided prescriptions for levetiracetam, losartan, atorvastatin, clopidogrel. The patient and family members were given the opportunity to ask questions and reported no further questions. Furthermore, all questions were answered to the best of my ability. A copy of this discharge summary will be sent to the above providers to facilitate continuity of care. Today, I personally spent 35 minutes on his case, of which greater than 50% of the time was spent in patient education, counseling, and coordination of care as described above. - Physical Exam General: Alert, In no apparent distress, Oriented x3 HEENT: Atraumatic, PERRLA, Mucous membr. moist/pink, EOMI, Sclerae nonicteric Neck: Supple, JVD not distended Respiratory: Clear to auscultation bilaterally, Normal air movement Cardiovascular: No edema, Regular rate/rhythm, Normal S1 S2, No gallops, No rubs, No murmurs Gastrointestinal: Normal bowel sounds, Soft and benign, Non-distended, No tenderness, No rebound, No guarding Musculoskeletal: No clubbing Integumentary: No rashes Neurological: Normal speech, Normal strength at 5/5 x4 extr, Normal tone, Sensation intact (with exception of LLE parasthesias), Cranial nerves 3-12 intact, Normal affect NIH Stroke Scale 1a. Level of consciousness: 0 - Alert; keenly responsive 1b. LOC questions: 0 - Both questions right 1c. LOC commands: 0 - Performs both tasks 2. Best Gaze: 0 - Normal 3. Visual: 0 - No visual loss 4. Facial Palsy: 0 - Normal symmetry 5a. Motor left arm: 0 - No drift for 10 seconds 5b. Motor right arm: 0 - No drift for 10 seconds 6a. Motor left le - No drift for 5 seconds 6b. Motor right le - No drift for 5 seconds 7. Limb ataxia: 0 - No ataxia 8. Sensory: 1 - mild-moderate loss: can sense being touched (left leg) 9. Best Language: 0 - Normal; no aphasia 10. Dysarthria: 0 - Normal 11. Extinction and Inattention: 0 - No abnormality 12. Distal motor function: 0 - No abnormality Total Score: 1 Vital Signs/Physical Exam: Temp Pulse Resp BP Pulse Ox 98.3 F 77 16 115/68 97 12/31/21 12:00 12/31/21 12:00 12/31/21 12:00 12/31/21 12:00 12/31/21 12:00 Laboratory Data at Discharge: WBC 3.60 K/uL (4.3-10.9) L 12/31/21 03:51 Hgb 12.4 g/dL (13.6-17.9) L D 12/31/21 03:51 Hct 35.3 % (39.6-49.0) L 12/31/21 03:51 Plt Count 151 K/uL (152-406) L 12/31/21 03:51 PT 11.2 SECONDS (9.5-12.5) 12/29/21 17:05 INR 1.02 12/29/21 17:05 APTT 25.5 SECONDS (24.3-36.9) 12/29/21 17:05 Sodium 135 mmol/L (136-145) L D 12/31/21 03:51 Potassium 3.8 mmol/L (3.5-5.1) 12/31/21 03:51 BUN 4 mg/dL (7-18) L 12/31/21 03:51 Creatinine 0.63 mg/dL (0.55-1.3) 12/31/21 03:51 Glucose 89 mg/dL (74-106) 12/31/21 03:51 Magnesium 1.8 mg/dL (1.8-2.4) 12/31/21 03:51 Total Bilirubin 0.7 mg/dL (0.2-1.0) 12/31/21 03:51 AST 45 U/L (15-37) H 12/31/21 03:51 ALT 30 U/L (12-78) 12/31/21 03:51 Alkaline Phosphatase 53 U/L (45-117) D 12/31/21 03:51 Triglycerides 34 mg/dL (<150) 12/30/21 02:47 Cholesterol 153 mg/dL (<200) 12/30/21 02:47 HDL Cholesterol 111 mg/dL (40-60) H 12/30/21 02:47 Cholesterol/HDL Ratio 1.38 12/30/21 02:47 Home Medications: Adalimumab [Humira(Cf) Pen] 40 mg IM SEECOM 12/29/21 Anastrozole 1 mg PO SEECOM 12/29/21 Azelastine/Fluticasone [Azelastin-Flutic 137-50Mcg Spr] 23 gm NS DAILY 12/29/21 Baclofen 10 mg PO QID 12/29/21 Gabapentin 600 mg PO QID 12/29/21 Hydroxychloroquine [Plaquenil*] 400 mg PO DAILY 12/29/21 Metoprolol Succinate 100 mg PO DAILY 12/29/21 Testosterone Cypionate [Testone Cik] 200 mg IM SNACKS 12/29/21 sulfaSALAzine [Sulfasalazine] 1,000 mg PO BID 12/29/21 Aspirin Chewable [Aspirin Chewable*] 81 mg PO DAILY #1 tab.chew 12/31/21 Atorvastatin Calcium [Lipitor] 40 mg PO BEDTIME #30 tab 12/31/21 Clopidogrel Bisulfate [Plavix*] 75 mg PO DAILY #30 tab 12/31/21 Folic Acid 1 mg PO DAILY #1 12/31/21 Losartan Potassium [Cozaar] 100 mg PO DAILY #30 tab 12/31/21 levETIRAcetam [Keppra*] 500 mg PO BID #60 tab 12/31/21 New Medications: Aspirin Chewable [Aspirin Chewable*] 81 mg PO DAILY #1 tab.chew Losartan Potassium [Cozaar] 100 mg PO DAILY #30 tab Folic Acid 1 mg PO DAILY #1 levETIRAcetam [Keppra*] 500 mg PO BID #60 tab Atorvastatin Calcium [Lipitor] 40 mg PO BEDTIME #30 tab Clopidogrel Bisulfate [Plavix*] 75 mg PO DAILY #30 tab Physician Discharge Instructions: 1. Please schedule a follow-up appointment with your PCP (Dr. Kaminski) in 3-5 days 2. Please schedule a follow-up appointment with Neurology (Dr. Monsivais) in 1-2 weeks 3. Please schedule a follow-up appointment with [facility] Neurosurgery as soon as possible - You will need to have a repeat CT angiogram of your neck at this appointment Diet: AHA Activity: Ad tony Followup: Gelacio Monsivais MD [ASSOCIATE-ACTIVE - CAN ADMIT] - 1 Week Fina Kaminski DO, DO [Primary Care Provider] - 2-3 Days Time spent managing pt's care (in minutes): 35
[2021-12-31 15:24] VITALS: O2SAT 98
--- NOTE | 2022-01-01 13:52 | EEG ---
CHART: [id number] TEST ID#: [id number] DATE OF STUDY: 12/30/2021 THE EEG WAS RECORDED PORTABLE IN THE PATIENT'S ROOM ON A 17 CHANNEL MACHINE. ELECTRODES WERE APPLIED IN THE USUAL MANNER USING THE INTERNATIONAL 10-20 SYSTEM. THE WAKING BACKGROUND RHYTHM IN THIS RECORD CONSISTS OF FAIRLY WELL DEVELOPED AND FAIRLY WELL ORGANIZED WAVES OF 8.5 HZ., MAXIMAL IN THE POSTERIOR HEAD REGIONS WHICH ATTENUATE NORMALLY WITH EYE OPENING. LOW-VOLTAGE 18-22 HZ ACTIVITY IS EXPRESSED IN THE FRONTAL REGIONS. THERE ARE NO FOCAL OR LATERALIZING FEATURES. NO EPILEPTIFORM ACTIVITY APPEARS. SLEEP DID NOT OCCUR. HYPERVENTILATION WAS NOT PERFORMED. PHOTIC STIMULATION PRODUCED FAIR DRIVING BILATERALLY. IMPRESSION: NORMAL EEG FOR THE AGE OF THE PATIENT IN [place] AND [place] STATES.
== END 2021-12-31 15:35 | disposition home or self-care (01) | DRG 100 ==
LOC: ER 16:19 → ERHOLD 19:10 → 2ND 19:28 → OBSVTOIN 12-30 12:16
PROVIDERS: ADMIT Internal Medicine; ATTEND Internal Medicine
PROC: 5A09457 Assistance with Respiratory Ventilation, 24-96 Consecutive Hours, Continuous Positive Airway Pressure (ICD-10-PCS; principal; 2021-12-31)
DX: G40.909 Epilepsy, unspecified, not intractable, without status epilepticus (principal); I77.74 Dissection of vertebral artery; E87.1 Hypo-osmolality and hyponatremia; I10 Essential (primary) hypertension; K21.9 Gastro-esophageal reflux disease without esophagitis; E87.6 Hypokalemia; E78.5 Hyperlipidemia, unspecified; E83.42 Hypomagnesemia; G83.84 Todd's paralysis (postepileptic); M06.9 Rheumatoid arthritis, unspecified; M35.00 Sjogren syndrome, unspecified; M94.8X9 Other specified disorders of cartilage, unspecified sites; T50.2X5A Adverse effect of carbonic-anhydrase inhibitors, benzothiadiazides and other diuretics, initial encounter; R79.89 Other specified abnormal findings of blood chemistry; Z88.8 Allergy status to other drugs, medicaments and biological substances; Z98.84 Bariatric surgery status; Z90.49 Acquired absence of other specified parts of digestive tract; Z20.822 Contact with and (suspected) exposure to COVID-19
CPT/HCPCS: 36415; 70450; 70544; 70549; 70553; 71045; 71275; 80048; 80053; 80061; 80076; 81003; 82607; 82746; 82947; 83036; 83735; 84439; 84443; 84484; 85025; 85379; 85610; 85730; 87811; 93005; 93306; 94660; 95816; 96374; 97116; 97161; 99285; A9577; G0378; J1650; J3475; J7030; J7120; Q9967

== ENCOUNTER 2022-01-05 19:08 | Emergency (ER) | payer OTHER, BC ==
--- OUTSIDE RECORDS SUMMARY | 2022-01-05 19:11 | XMS REPORT | Clinical Summary ---
:1970 Author Organization [facility] Address [address] [place] [address] Care Team Providers Name Role Phone Zena [...] Overview: Added automatically from request for angelika bose [id number] History of bypass of stomach 11/18/2018 Overview: Added automatically from request for angelika bose [id number] Excessive belching 11/18/2018 Overview: Formatting of this note is dif ferent from the original. Mr. Collado is a 51 y.o. male with a PMH of rheumatoid arthritis, Sjogren's syndrome, polychondritis, HTN, gastric bypass, and obesity. He is being managed by Dr. Bandar Dillon at [facility] for NAFLD and is scheduled to have [...] Encounters Date Type Specialty Care Team Description 01/03/2022 Refill GastroenterDom stephens Leah, Small jay wel bacterial Hepatology & Nutrition FURNACE MAINTENANCE overg rowth syndrome 12/06/2021 Refill GastroenterKb stephens Mehnaz Small jay wel bacterial Hepatology & Nutrition MD overg rowth syndrome 11/07/2021 Orders Only GastroenterologyDom Leah, Loss of appetite (Primary Dx); Hepatology & Nutrition FURNACE MAINTENANCE Abnor mal weight loss 10/09/2021 Refill GastroenterKb stephens Mehnaz Small jay wel bacterial Hepatology & Nutrition overg rowth syndrome 09/07/2021 Refill GastroenterKb stephens Mehnaz Small jay wel bacterial Hepatology & Nutrition MD overg rowth syndrome 09/02/2021 Refill GastroenterKb stephens Mehnaz Small jay wel bacterial Hepatology & Nutrition overg rowth syndrome 03/10/2021 Refill GastroenterologyKb Mehnaz Small jay wel bacterial Hepatology & Nutrition MD overg rowth syndrome after 01/05/2021 Surgical History Surgery Date Site/Laterality Comments COLONOSCOPY 02/23/2017 - 02/22/2018 STOMACH SURGERY 02/23/2018 - Hiatal hernia re pair 02/22/2019 CHOLECYSTECTOMY 02/23/2009 - 02/22/2010 SHOULDER SURGERY 02/23/2015 - 02/23/2016 UPPER GASTROINTESTINAL ENDOSCOPY 02/23/2017 - 02/22/2018 AR BREATH HYDROGEN/METHANE TEST 12/15/2018 N/A Procedure: HYDROGEN AND GLUCOSE BREATH T ESTS FOR BACTERIAL OVERGROWTH OR LA CTOSE INTOLERANCE; Angelika geon: Bandar Santos MD; Location: MAIN ENDOSCOPY; Serv ice: GASTROENTEROLOGY AR ESOPHAGOGASTRODUODENOSCOPY 01/24/2019 Esophagus/N/A Pr ocedure: DIAGNOSTIC TRANSORAL DIAGNOSTIC UPPER GASTR OINTESTINAL ENDOSCOPY; Surge on: Zena Quiles MD ; Location: MAIN ENDOSCOPY; Servi ce: GASTROENTEROLOGY AR ESOPHAGEAL MOTILITY STUDY, 02/09/2019 N/A Pr ocedure: ESOPHAGEAL MANOMETRY MOTILITY STUDY W/INTERP&REPORT (MANOSCAN HIGH R ES); Surgeon: Zena Quiles MD; Location[facility]; Servi ce: GASTROENTEROLOGY AR GERD TST W/ NASAL PH ELECTROD 02/09/2019 N/A Procedure: GASTROESOPHAGEAL REFLUX TEST-DIGITRAPPER W/CATH PH ELTRD PLCGA; Surgeon: Zena Quiles MD; Location[facility]; Servi ce: GASTROENTEROLOGY Medical History Medical History Date Comments Hypertension 1992 Irregular heart beat 1992 RBBB Dependence on continuous positive airway pressure ventilatio n 2005 Renal stone 2008 Sexual dysfunction 2007 Social History Tobacco Use Types Packs/Day Years [...] Vaccination (#1) 1970 Results Not on fileafter 01/05/2021 Insurance Payer Benefit Plan / Subscriber ID Effective Dates Phone Addre ss Type Group [employer] MANAGED A[employer] HMO [id number] 2000-Present [id number] [place] [address] [employer] [place] PPO POS [id number] 2016-Present [address] [place] [address] Care 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
--- OUTSIDE RECORDS SUMMARY | 2022-01-05 19:17 | XMS REPORT | Continuity of Care Document ---
:1970 Author Organization [facility] t Address [address] [place] [address] Care Team Providers Name Role Phone Kb ARBOLEDA, Zena Primary Care Physician Cori ARBOLEDA, Torey Trotter Attending Clinician ZENA QUILES Attending Clinician Unavailable Dom DE LA GARZA, Daphne Attending Clinician Wesly Flor MD Attending Clinician Allegra Bowman Attending Clinician Judson Tucker MD Attending Clinician Bandar Dillon MD Attending Clinician Lucia Guadalupe CPhT Attending Clinician Unavailable Karen Dela Cruz DO Attending Clinician Zena Quiles MD Attending Clinician Orr RN, Clem Attending Clinician Unavailable Calixto Oliveira MD Attending Clinician Keshia Epperson MA Attending Clinician Unavailable Nito GEORGE, Johnson Attending Clinician Unavailable Bindal MD, Mike K. Attending Clinician David Altman MD Attending Clinician RIANA CARDENAS Attending Clinician Unavailable ARMANDO ROBLEDO Attending Clinician Unavailable YOSELYN PATTON Attending Clinician Unavailable ZENA QUILES Admitting Clinician Unavailable JUDSON TUCKER Admitting Clinician Unavailable WESLY FLOR Admitting Clinician Unavailable ARMANDO ROBLEDO Admitting Clinician Unavailable Payers Payer Name Policy Type Policy Number Effective Date Expiration Date oJhn [place] O [id number] 8188-01-01 00:00:00 [place] [id number] 2016 00:00:00 Problems Condition Condition Condition Status Onset Resolution Last Treating Co mments Source Name Details Category Date Date Treatment Clinician Date Abnormal Abnormal Disease Active 2021-02 Metho di liver liver 02-23 st enzymes enzymes 00:00: Hospita 00 l NAFLD [...] Hernia, Disease Active [facility]i hiatal hiatal 11-13 st 00:00: Hospita 00 l Abnormal Abnormal Disease Active 2018-02 Overview: Un dany finding on finding on Formattin ity of diagnostic diagnostic 00:00: g of this [place] [facility] of imaging of note MD other part other part might be Anderso of of different n digestive digestive from the Ca ncer tract tract original. Center Added automatic ally from request for surgery [id number] History of History of Disease Active Overview : [facility] bypass of bypass of 11-18 Formattin i ty of stomach stomach 00:00: g of this note MD might be Anderso different n from the Cancer original. Center Added automatic ally from request for surgery [id number] Excessive Excessive Disease Active Overview: Univers belching belching 11-18 Formattin ity of 00:00: g of this [place] [id number] note is MD franky Newberry from the n original. Cancer Mr. Jordan Collado is a 51 y.o. male with a PMH of rheumatoi d arthritis , Sjogren's syndrome, polychond ritis, HTN, gastric bypass, and obesity. He is being managed by Dr. 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 [...] adverse 00:00: [place] reaction 00 [facility] Propensi Active Other (See cough Meth [facility] Inhibito ty to Comments) 04-09 st rs adverse 00:00: Hospita reaction 00 l s to drug NO KNOWN Allergy Active [facility] Family History Family Member Diagnosis Comments Start Date Stop Date Source Natural brother Hypertension [facility] Natural daughter Thrombocytopenia [facility] Natural mother Liver disease [facility] Natural sister Magdalena's thyroiditis [facility] Natural sister [facility]um [facility] Social History Social Habit Start Date Stop Date Quantity Comments Source Alcohol intake 2022-01-01 2022-01-01 Current drinker of [facility] 00:00:00 00:00:00 alcohol (finding) Hospita l Tobacco use and 2021-11-07 2021-11-07 Smokeless tobacco [facility] exposure 00:00:00 00:00:00 non-user Hospital Alcohol Comment 2019-11-02 2019-11-[address] 00:00:00 00:00:00 Hospital Sex Assigned At [address] [facility] 00:[facility]00 [facility] Smoking Status Start Date Stop Date Source Never smoked tobacco [facility] Medications Ordered Filled Start Stop Current Ordering Indication Dosage Frequency Signature Comments Components Source Medication Medication Date Date Medication? Clinician (SIG) Name Name baclofen 2021-02 Yes Small bowel 10mg TAKE 1 [facility] (LIORESAL) -11 bacterial TABLET (10 ity of 10 mg 00:00: [place] tablet 00 syndrome MOUTH MD EVERY 8 Anderso (EIGHT) n HOURS Cancer NEEDED FOR Center HICCUPS. clopidogreL 2021-02 Yes 75mg Take [address] [facility] (PLAVIX) 75 1-10 by mouth. [place] mg tablet 17:15: Medical 55 Center clopidogreL 2021-02 Yes 75mg QD Take 1 [facility] (PLAVIX) 75 1-09 tablet (75 st mg tablet 14:25: mg total) Hos junior 19 by mouth l daily. atorvastati 2021-02 Yes 40mg QD Take 1 Meth [facility] n (LIPITOR) 1-09 tablet (40 st 40 mg 14:25: mg total) Hospita tablet 19 by mouth l daily. losartan 2021-02 Yes 100mg QD Take 1 Method i (COZAAR) 1-[address] 100 MG 14:25: (100 mg Hospita tablet 19 total) by l mouth daily. atorvastati 2021-02 Yes 40mg Take [address] n (LIPITOR) 1-08 by mouth. [place] 40 MG 00:00: Medical tablet 00 [place] levETIRAcet 2021-02 Yes TWICE [facility] (KEPPRA) 1-08 DAILY [facility] 500 MG 00:00: Medical tablet 00 Center tacrolimus 2021-02 Yes Q.5D Apply [facility] (PROTOPIC) 1-03 topically [facility] 0.1 % 00:00: 2 (two) Medical ointment 00 times Center daily. RAQUEL Johnson, 2021-02 Yes INJECT 1 Met hodi Pen 40 0-[address] mg/0.4 mL 00:00: THE SKIN Hosp harpal pen 00 EVERY 14 l injector DAYS. kit Elizabeth,RAQUEL, 2021-02 Yes INJECT 1 Met hodi Pen 40 0-[address] mg/0.4 mL 00:00: THE SKIN Hosp harpal pen 00 EVERY 14 l injector DAYS. kit azelastine 2021-02 Yes 1{spray [address] (ASTELIN) 0-21 } [facility] 137 mcg 00:00: Medical (0.1 %) 00 Center nasal spray Opzelura 2021-02 Yes Q.5D Apply [facility] 1.5 % Crea 0-21 topically Luke s 00:00: 2 (two) Medical 00 times Center daily. baclofen 2021-02 Yes Small bowel 10mg TAKE 1 [facility] (LIORESAL) 0-19 bacterial TABLET (10 ity of 10 mg 00:00: overgrowth [place] tablet 00 syndrome MOUTH MD EVERY 8 Anderso (EIGHT) n HOURS Cancer NEEDED FOR Center HICCUPS. baclofen 2021-02 Yes 10mg Take [address] [facility] (LIORESAL) 0-19 by mouth [facility] 10 MG 00:00: every 8 Medical tablet 00 (eight) Center hours as needed. pantoprazol 2021-02 Yes 40mg QD Take [address] e 0-19 by mouth [facility] (PROTONIX) 00:00: daily. Medic al 40 MG 00 Center tablet baclofen 2021-02- Small bowel 10mg TAKE 1 Univers (LIORESAL) 0-19 11-11 bacterial TABLET (10 ity of 10 mg 00:00: 00:00 overgrowth MG) BY [place] as tablet 00 :00 syndrome MOUTH MD EVERY 8 Anderso (EIGHT) n HOURS Cancer NEEDED FOR Center HICCUPS. gabapentin 2021-02 Yes 600mg Q.25D Take [address] (NEURONTIN) 0-18 mg by [facility] 600 MG 00:00: mouth 4 Medical tablet 00 (four) Center times daily. Humira,CF, 2021-02 Yes 40mg Inject [address] Pen 40 0-14 mg [facility] mg/0.4 mL 00:00: subcutaneo Me dical PnKt 00 usly once Center every 2 weeks. meloxicam 2021-02 Yes 15mg QD Take [address] (MOBIC) 15 0-14 by mouth [facility] MG tablet 00:00: daily. Medica l 00 [place] losartan-hy Yes 1{tbl} QD Take [address] droCHLOROth 9-29 tablet by [place] iazide 00:00: mouth Medical (HYZAAR) 00 daily. [place] 100-25 mg per tablet sulfaSALAzi Yes TAKE 2 Meth [place] ne 9-[address] (AZULFIDINE 00:00: MOUTH Hospi ta ) 500 mg 00 TWICE A l tablet DAY sulfaSALAzi Yes TAKE 2 Meth [place] ne 9-[address] (AZULFIDINE 00:00: MOUTH Hospi ta ) 500 mg 00 TWICE A l tablet DAY anastrozole Yes 1mg Q7D Take [address] (ARIMIDEX) 9-19 by mouth [facility] 1 mg tablet 00:00: once a Medi ezra 00 week. [place] testosteron Yes 200mg Inject [address] e cypionate 9-19 mg [facility] (DEPOTESTOT 00:00: intramuscu Medical ERONE 00 larly. [place] CYPIONATE) 200 mg/mL injection hydrOXYchlo Yes [id number] 400mg QD Take 2 Methodi roQUINE 9-[address] (PLAQUENIL) 00:00: (400 mg Hos junior 200 mg 00 total) by l tablet mouth daily. hydrOXYchlo Yes 400mg QD Take [address] roQUINE 9-15 mg by [facility] (PLAQUENIL) 00:00: mouth Medic al 200 mg 00 daily. [place] tablet hydrOXYchlo Yes [id number] 400mg QD Take 2 Methodi roQUINE 9-[address] (PLAQUENIL) 00:00: (400 mg Hos junior 200 mg 00 total) by l tablet mouth daily. metoprolol Yes 100mg QD Take [address] succinate 9-11 mg by [facility] (TOPROL-XL) 00:00: mouth Medic al 100 MG 24 00 daily. Center hr tablet RAQUEL Johnson, 2021- No INJECT 1 Me thodi Pen 40 09-24 10-[address] mg/0.4 mL 00:00: 00:00 THE SKIN Hos junior pen 00 :00 EVERY 14 l injector DAYS. kit RAQUEL Johnson, 2021- No INJECT 1 Me thodi Pen 40 09-24 10-[address] mg/0.4 mL 00:00: 00:00 THE SKIN Hos junior pen 00 :00 EVERY 14 l injector DAYS. kit sulfaSALAzi 2021- No 500mg Q.5D Take 500 Methodi ne 08-20 06-[address] (AZULFIDINE 15:09: 00:00 mouth 2 Ho spita ) 500 mg 07 :00 (two) l tablet times a day. sulfaSALAzi 2021- No 500mg Q.5D Take 500 Methodi ne 08-20 06-[address] (AZULFIDINE 15:09: 00:00 mouth 2 Ho spita ) 500 mg 07 :00 (two) l tablet times a day. flu vac No Afluria Qd Met [facility] [id number] st 36mos 14:56: 00:00 (36 mos Hospita up,PF, 57 :00 up)(PF)60 l (Afluria Qd mcg (,3yr mcg up,,PF,) 60 x4)/0.5 mL mcg (15 mcg IM syringe x 4)/0.5 mL syringe flu vac No Afluria Qd Met hodi [id number] st 36mos 14:56: 00:00 (36 mos Hospita up,PF, 57 :00 up)(PF)60 l (Afluria Qd mcg (,3yr mcg up,,PF,) 60 x4)/0.5 mL mcg (15 mcg IM syringe x 4)/0.5 mL syringe sulfaSALAzi 2021- No 1000mg Q.5D Take 2 M [place] ne 08-20-[address] (AZULFIDINE 00:00: 00:00 (1,000 mg Hospita ) 500 mg 00 :00 total) by l tablet mouth 2 (two) times a day. sulfaSALAzi 2021- No 1000mg Q.5D Take 2 M ethodi ne 08-20-[address] (AZULFIDINE 00:00: 00:00 (1,000 mg Hospita ) 500 mg 00 :00 total) by l tablet mouth 2 (two) times a day. methocarbam 2021-0 Yes 750mg Take 1 Met hodi oL 6-[address] (ROBAXIN) 00:00: (750 mg Hospi ta 750 MG 00 total) by l tablet mouth as needed. methocarbam 2021-0 Yes 750mg Take 1 Met hodi oL 6-[address] (ROBAXIN) 00:00: (750 mg Hospi ta 750 MG 00 total) by l tablet mouth as needed. hydrOXYchlo 2021- No [id number] TAKE 2 Methodi roQUINE 6- 09-[address] (PLAQUENIL) 00:00: 00:00 MOUTH Hosp harpal 200 mg 00 :00 EVERY DAY l tablet hydrOXYchlo 2021- No [id number] TAKE 2 Methodi roQUINE 6- 09-[address] (PLAQUENIL) 00:00: 00:00 MOUTH Hosp harpal 200 mg 00 :00 EVERY DAY l tablet Humira,CF, 2021- No INJECT 1 Me thodi Pen 40 05-29- PEN UNDER st mg/0.4 mL 00:00: 00:00 THE SKIN Hos junior pen 00 :00 EVERY 14 l injector DAYS. kit Humira,CF, 2021- No INJECT 1 Me thodi Pen 40 05-29- PEN UNDER st mg/0.4 mL 00:00: 00:00 THE SKIN Hos junior pen 00 :00 EVERY 14 l injector DAYS. kit leflunomide 2021- No TAKE 1 Met hodi (ARAVA) 10 3 04-[address] MG tablet 00:00: 00:00 MOUTH Hospit a 00 :00 EVERY DAY l leflunomide 2021- No TAKE 1 Met hodi (ARAVA) 10 3-29 04-[address] MG tablet 00:00: 00:00 MOUTH Hospit a 00 :00 EVERY DAY l sulfaSALAzi 2021- No 500mg Q.5D Take 1 Me thodi ne 05-14 04-[address] (Azulfidine 00:00: 00:00 (500 mg Ho spita ) 500 mg 00 :00 total) by l tablet mouth 2 (two) times a day. sulfaSALAzi 2021- No 500mg Q.5D Take 1 Me thodi ne 05-14 04-[address] (Azulfidine 00:00: 00:00 (500 mg Ho spita ) 500 mg 00 :00 total) by l tablet mouth 2 (two) times a day. meloxicam 2022- No 15mg Q24H TAKE 1 Metho di (MOBIC) 15 2- 02-09 TABLET (15 st mg tablet 00:00: 05:59 MG TOTAL) Ho spita 00 :00 BY MOUTH l DAILY NEEDED FOR MODERATE PAIN. meloxicam 2022- No 15mg Q24H TAKE 1 Metho di (MOBIC) 15 2-09 24-09 TABLET (15 st mg tablet 00:00: 05:59 MG TOTAL) Ho spita 00 :00 BY MOUTH l DAILY NEEDED FOR MODERATE PAIN. Prevalite 4 2021- No TAKE 1 Met hodi gram powder 03-20 09-[address] in packet 00:00: 00:00 PACKET Hospi ta 00 :00 ONCE A DAY l DISSOLVED IN 4 OZ OF WATER Prevalite 4 2021- No TAKE 1 Met hodi gram powder 03-20 09-[address] in packet 00:00: 00:00 PACKET Hospi ta 00 :00 ONCE A DAY l DISSOLVED IN 4 OZ OF WATER adalimumab 2021- No 40mg Q14D Inject 40 M ethodi (Humira,CF, 03-20 04-[address] Pen) 40 00:00: 00:00 the skin Hospi ta mg/0.4 mL 00 :00 every 14 l pen (fourteen) injector days. kit adalimumab 2021- No 40mg Q14D Inject 40 M ethodi (Humira,CF, 1-26 04-[address] Pen) 40 00:00: 00:00 the skin Hospi ta mg/0.4 mL 00 :00 every 14 l pen (fourteen) injector days. kit baclofen 2021- No Small bowel 10mg TAKE 1 [facility] (LIORESAL) 1-19 10-19 bacterial TABLET (10 ity of 10 mg 00:00: 00:00 overgrowth MG) BY [place] as tablet 00 :00 syndrome MOUTH MD EVERY 8 Anderso (EIGHT) n HOURS Cancer NEEDED FOR Center HICCUPS. baclofen 2021- No Small bowel 10mg TAKE 1 Univers (LIORESAL) 1-19 10-19 bacterial TABLET (10 ity of 10 mg 00:00: 00:00 overgrowth MG) BY [place] as tablet 00 :00 syndrome MOUTH MD EVERY 8 Anderso (EIGHT) n HOURS Cancer NEEDED FOR Center HICCUPS. adalimumab 2021- No 40mg Q14D Inject 40 M ethodi (Humira,CF, 1-18 01-[address] Pen) 40 00:00: 00:00 the skin Hospi ta mg/0.4 mL 00 :00 every 14 l pen (fourteen) injector days. kit adalimumab 2021- No 40mg Q14D Inject 40 M ethodi (Humira,CF, 1-18 01-[address] Pen) 40 00:00: 00:00 the skin Hospi ta mg/0.4 mL 00 :00 every 14 l pen (fourteen) injector days. kit anastrozole 2020-02 Yes 1mg Q7D Take 1 [facility] (ARIMIDEX) 2-30 tablet (1 st 1 mg chemo 00:00: mg total) Ho spita tablet 00 by mouth l once a week. anastrozole 2020-02 Yes 1mg Q7D Take 1 [facility] (ARIMIDEX) 2-30 tablet (1 st 1 mg chemo 00:00: mg total) Ho spita tablet 00 by mouth l once a week. leflunomide 2020-02- No 20 MG [facility] (ARAVA) 20 2-30 03-[address] MG tablet 00:00: 00:00 Hospita 00 :00 l leflunomide 2020-02- No 20 MG Meth [place] [...] No 10 mg [facility] (ARAVA) 20 2-22 12-[address] MG tablet 00:00: 00:00 1 week Hospi ta 00 :00 then 20 mg l daily leflunomide 2020-02- No 10 mg [facility] (ARAVA) 20 2-22 12-[address] MG tablet 00:00: 00:00 1 week Hospi ta 00 :00 then 20 mg l daily leflunomide 2020-02- No 10mg QD Take 1 Met hodi (ARAVA) 10 2-22 12-22 tablet (10 st MG tablet 00:00: 00:00 mg total) Ho spita 00 :00 by mouth l daily. leflunomide 2020-02- No 10mg QD Take 1 Met hodi (ARAVA) 10 2-22 12-22 tablet (10 st MG tablet 00:00: 00:00 mg total) Ho spita 00 :00 by mouth l daily. BD Luer-Kt 2020-02 Yes Method i Syringe 3 2-16 st mL 23 gauge 00:00: Hospit a x 1 1/2" 00 l syringe BD Luer-Kt 2020-02 Yes Method i Syringe 3 2-16 st mL 23 gauge 00:00: Hospit a x 1 1/2" 00 l syringe BD Regular 2020-02 Yes Methodi Bevel 1-10 st [place] 18 00:00: Hospita gauge x 1" 00 l needle BD Regular 2020-02 Yes Methodi Bevel 1-10 st [place] 18 00:00: Hospita gauge x 1" 00 l needle naproxen 2020-02- No 500mg Q.5D Take 500 Met hodi (NAPROSYN) 0-12 03-[address] 500 MG 00:00: 00:00 mouth 2 Hospita tablet 00 :00 (two) l times a day with meals. naproxen 2020-02- No 500mg Q.5D Take 500 Met hodi (NAPROSYN) 0-12 03-[address] 500 MG 00:00: 00:00 mouth 2 Hospita tablet 00 :00 (two) l times a day with meals. hydrOXYchlo 2021- No [id number] 400mg QD Take 2 Methodi roQUINE 11-14- tablets st (PLAQUENIL) 00:00: 00:00 (400 mg Ho spita 200 mg 00 :00 total) by l tablet mouth daily. hydrOXYchlo 2021- No [id number] 400mg QD Take 2 Methodi roQUINE 11-14-[address] (PLAQUENIL) 00:00: 00:00 (400 mg Ho spita 200 mg 00 :00 total) by l tablet mouth daily. adalimumab 2021- No 40mg Q14D Inject 40 M ethodi (Humira,CF, 11-14 01-[address] Pen) 40 00:00: 00:00 the skin Hospi ta mg/0.4 mL 00 :00 every 14 l pen (fourteen) injector days. kit adalimumab 2021- No 40mg Q14D Inject 40 M ethodi (Humira,CF, 11-14 01-[address] Pen) 40 00:00: 00:00 the skin Hospi ta mg/0.4 mL 00 :00 every 14 l pen (fourteen) injector days. kit meloxicam 2021- No 15mg Q24H TAKE 1 Metho di (MOBIC) 15 8- 02-08 TABLET (15 st mg tablet 00:00: 00:00 MG TOTAL) Ho spita 00 :00 BY MOUTH l DAILY NEEDED FOR MODERATE PAIN. meloxicam 2021- No 15mg Q24H TAKE 1 Metho di (MOBIC) 15 8-11 02-08 TABLET (15 st mg tablet 00:00: 00:00 MG TOTAL) Ho spita 00 :00 BY MOUTH l DAILY NEEDED FOR MODERATE PAIN. baclofen 2021- No Small bowel 10mg TAKE 1 Univers (LIORESAL) 09-20 bacterial TABLET (10 ity of 10 mg 00:00: 00:00 overgrowth MG) BY [facility] as tablet 00 :00 syndrome MOUTH MD EVERY 8 Anderso (EIGHT) n HOURS Cancer NEEDED FOR Center HICCUPS. baclofen 2021- No Small bowel 10mg TAKE 1 Univers (LIORESAL) 09-20 bacterial TABLET (10 ity of 10 mg 00:00: 00:00 overgrowth MG) BY Joseph as tablet 00 :00 syndrome MOUTH MD EVERY 8 Anderso (EIGHT) n HOURS Cancer NEEDED FOR Center HICCUPS. gabapentin 2019-02 Yes TAKE 1 Metho di (NEURONTIN) 2-[address] 600 mg 00:00: MOUTH Hospita tablet 00 THREE l TIMES A DAY gabapentin 2019-02 Yes TAKE 1 Metho di (NEURONTIN) 2-[address] 600 mg 00:00: MOUTH Hospita tablet 00 THREE l TIMES A DAY clindamycin 2019-02 Yes Method i (CLEOCIN T) 2-22 st 1 % swab 00:00: Hospita 00 l clindamycin 2019-02 Yes Method i (CLEOCIN T) 2-22 st 1 % swab 00:00: Hospita 00 l predniSONE 2019-02- No 2 tabs [facility] (DELTASONE) 2-19 12-[address] 5 mg tablet 00:00: 05:59 3 days Hos junior 00 :00 then 1 tab l daily for 3 days. To have on hand for arthritis flare. predniSONE 2019-02 No 2 tabs Meth [place] (DELTASONE) 2-19 12-[address] 5 mg tablet 00:00: 05:59 3 days Hos junior 00 :00 then 1 tab l daily for 3 days. To have on hand for arthritis flare. azelastine- 2019-02 Yes 1{spray 1 spray by Methodi fluticasone 0-25 } Each Nare st (DYMISTA) 00:00: route. Hospit a 137-50 00 l mcg/spray spray,non-a erosol azelastine- 2019-02 Yes 1{spray 1 spray by Methodi fluticasone 0-25 } Each Nare [facility] (DYMISTA) 00:00: route. Hospit a 137-50 00 l mcg/spray spray,non-a erosol adalimumab 2019-02 Yes 40mg Inject 40 Un dany (Humira) 40 0-20 mg under ity of mg/0.8 mL 11:03: [place] injection 51 every 14 (gaetano) [facility] adalimumab 2019-02 Yes 40mg Inject 40 Un dany (Humira) 40 0-20 mg under ity of mg/0.8 mL 11:03: the skin [place] injection 51 every 14 (fourteen) [facility] [place] simethicone 2019-02 Yes 250mg Chew 250 U nivers (MYLICON) 0-20 mg daily. ity o f 125 mg 11:03: [place] chewable 26 MD mike Newberry [facility] loratadine 2019-02 Yes 10mg Take 10 mg U nivers (CLARITIN) 0-20 by mouth ity o f 10 mg 11:03: daily. [place] tablet 26 MD Coni [facility] multivitami 2019-02 Yes 1{capsu Take 1 U nivers n capsule 0-20 le} capsule by ity of 11:03: mouth [place] 26 daily. MD [facility] calcium 2019-02 Yes Take by Univers carbonate 0-20 mouth ity of (CALCIUM 11:03: daily. [place] 500 ORAL) 26 MD [facility] simethicone 2019-02 Yes 250mg Chew 250 U nivers (MYLICON) 0-20 mg daily. ity o f 125 mg 11:03: [place] chewable 26 MD mike Newberry [facility] loratadine 2019-02 Yes 10mg Take 10 mg U nivers (CLARITIN) 0-20 by mouth ity o f 10 mg 11:03: daily. [place] tablet 26 MD Newberry [facility] multivitami 2019-02 Yes 1{capsu Take 1 U nivers n capsule 0-20 le} capsule by ity of 11:03: mouth [place] 26 daily. MD Coni [facility] calcium 2019-02 Yes Take by Univers carbonate 0-20 mouth ity of (CALCIUM 11:03: daily. [place] 500 ORAL) 26 MD [facility] anastrozole Yes 1{tbl} Take 1 Un dany (ARIMIDEX) 9-17 tablet by ity of 1 mg tablet 00:00: mouth [place] 00 daily. MD Coni [facility] meloxicam Yes 1{tbl} Take 1 Univ ers (MOBIC) 15 9-17 tablet by ity of mg tablet 00:00: mouth [place] 00 daily. MD Coni [facility] testosteron Yes 200mg Inject 200 Univers e cypionate 9-17 mg into ity o f (DEPO-TESTO 00:00: the [place] TERONE) 200 00 shoulder, MD mg/mL thigh, or Anderso injection buttocks n every 5 Cancer days. [place] anastrozole Yes 1{tbl} Take 1 Un dany (ARIMIDEX) 9-17 tablet by ity of 1 mg tablet 00:00: mouth [place] 00 daily. MD Coni ye [facility] meloxicam Yes 1{tbl} Take 1 Univ ers (MOBIC) 15 9-17 tablet by ity of mg tablet 00:00: mouth [place] 00 daily. MD Coni ye [facility] testosteron Yes 200mg Inject 200 Univers e cypionate 9-17 mg into ity o f (DEPO-TESTO 00:00: the [place] TERONE) 200 00 shoulder, MD mg/mL thigh, or Anderso injection buttocks n every 5 Cancer days. [place] hydroxychlo Yes 400mg Take 400 U nivers roquine 9-13 mg by ity of (PLAQUENIL) 00:00: mouth [place] 200 mg 00 daily. [facility] hydrox[facility]lo Yes 400mg Take 400 U nivers roquine 9-13 mg by ity of (PLAQUENIL) 00:00: mouth [place] 200 mg 00 daily. MD [facility] baclofen Yes 10mg Q.2D Take 10 mg Met hodi (LIORESAL) 8-[address] 10 MG 00:00: (five) Hospita tablet 00 times a l day. losartan-hy Yes 1{tbl} Take 1 Un dany drochloroth 8-07 tablet by ity of iazide 00:00: mouth [place] (HYZAAR) 00 daily. 100-25 mg Anderso per tablet [facility] metoprolol Yes 1{tbl} Take 1 Uni vers succinate 8-07 tablet by ity o f (TOPROL XL) 00:00: mouth [place] 100 mg 24 00 daily. hr tablet [facility] losartan-hy Yes 1{tbl} Take 1 Un dany drochloroth 8-07 tablet by ity of iazide 00:00: mouth [place] (HYZAAR) 00 daily. 100-25 mg Anderso per tablet [facility] metoprolol Yes 1{tbl} Take 1 Uni vers succinate 8-07 tablet by ity o f (TOPROL XL) 00:00: mouth [place] 100 mg 24 00 daily. hr tablet [facility] chlorproMAZ Yes 1{tbl} Take 1 Un dany INE 8-07 tablet by ity of (THORAZINE) 00:00: mouth [place] 25 mg 00 needed. tablet [facility] ondansetron Yes 1{tbl} Dissolve 1 Univers (ZOFRAN-ODT 8-07 tablet on ity of ) 4 mg 00:00: the tongue [place] disintegrat 00 as needed. ing tablet [facility] chlorproMAZ Yes 1{tbl} Take 1 Un dany INE 8-07 tablet by ity of (THORAZINE) 00:00: mouth [place] 25 mg 00 needed. tablet [facility] ondansetron Yes 1{tbl} Dissolve 1 Univers (ZOFRAN-ODT 8-07 tablet on ity of ) 4 mg 00:00: the tongue [place] disintegrat 00 as needed. ing tablet [facility] baclofen Yes 10mg Q.2D Take 10 mg Met hodi (LIORESAL) 8-[address] 10 MG 00:00: (five) Hospita tablet 00 times a l day. XIIDRA 5 % Yes INSTILL 1 Me thodi dropperette 7-[address] 00:00: BOTH EYES Hospita 00 TWICE A l DAY XIIDRA 5 % Yes INSTILL 1 Me thodi dropperette 7-[address] 00:00: BOTH EYES Hospita 00 TWICE A l DAY pantoprazol Yes 1{tbl} Take 1 Un dany e 6-07 tablet by ity of (PROTONIX) 00:00: mouth [place] 40 mg EC 00 daily. tablet [facility] pantoprazol Yes 1{tbl} Take 1 Un dany e 6-07 tablet by ity of (PROTONIX) 00:00: mouth [place] 40 mg EC 00 daily. tablet [facility] pantoprazol Yes 40mg QD Take 40 mg Methodi e 1-[address] (PROTONIX) 00:00: daily. Hospi ta 40 MG EC 00 l tablet pantoprazol Yes 40mg QD Take 40 mg [...] Hospita (REVATIO) 00 l 20 mg tablet testosteron Yes INJECT 1 Me thodi [...] daily. l 100 mg 24 hr tablet metoprolol Yes 100mg QD Take 100 Me thodi succinate 1-[address] XL 00:00: mouth Hospita (TOPROL-XL) 00 daily. l 100 mg 24 hr tablet losartan- 2021- No 1{tbl} QD Take 1 M ethodi drochloroth 03-[address] iazide 00:00: 00:00 mouth Hospita (HYZAAR) 00 :00 daily. l 100-25 mg per tablet Vital Signs Vital Name Observation Time Observation Value Comments Source Body height 2022-01-01 20:20:00 162.6 cm [facility] Body weight 2022-01-01 20:20:00 81.647 kg [facility] BMI 2022-01-01 20:20:00 30.90 kg/m2 [facility] Body height 2021-12-26 12:46:00 162.6 cm [facility] Body weight 2021-12-26 12:46:00 84.369 kg [facility] BMI 2021-12-26 12:46:00 31.93 kg/m2 [facility] Systolic blood 2021-12-26 12:46:00 117 mm[Hg] [facility] pressure Diastolic blood 2021-12-26 12:46:00 77 mm[Hg] [place] [facility] Heart rate 2021-12-26 12:46:00 79 /min [facility] Body temperature 2021-12-26 12:46:00 36.61 [facility] Respiratory rate 2021-12-26 12:46:00 18 /min [facility] Oxygen saturation in 2021-12-26 12:46:00 98 /min [facility] Arterial blood by Pulse oximetry Procedures Procedure Date / Time Performing Source Performed Clinician CBC WITH PLATELET AND DIFFERENTIAL 2021-12-13 Bandar Dillon 17:11:00 [facility] COMPREHENSIVE METABOLIC PANEL 2021-12-13 Bandar Dillon ethodist 17:11:00 Hospital GGT 2021-12-13 Bandar Dillon 17:11:00 [facility] IMMUNOGLOBULIN G, A, M 2021-12-13 Bandar Dillon t 17:11:00 Hospital PROTHROMBIN TIME WITH INR 2021-12-13 Bandar Dillono dist 17:11:00 Hospital FL UGI W OR WO KUB 2021-12-12 Wesly Flor 14:05:00 Hospital SURGICAL PATHOLOGY REQUEST 2021-12-03 Wesly Floro dist 19:41:00 Hospital ESOPHAGOGASTRODUODENOSCOPY (EGD) 2021-12-03 Wesly Flor 19:33:00 Hospital C-REACTIVE PROTEIN 2021-11-07 Lanie Latifa [facility] 20:32:00 Hospital SEDIMENTATION RATE 2021-11-07 Lanie Latifa [facility] 20:32:00 Hospital CBC WITH PLATELET AND DIFFERENTIAL 2021-11-07 Lanie Juani a [facility] 20:32:00 Hospital ALBUMIN LEVEL 2021-11-07 Lanie Latifa [facility] 20:32:00 Hospital AST (SGOT) 2021-11-07 Lanie Latifa [facility] 20:32:00 Hospital ALT (SGPT) 2021-11-07 Lanie Latifa [facility] 20:32:00 Hospital URINALYSIS, AUTOMATED WITH 2021-11-07 Lanie Latifa Metho dist MICROSCOPY 20:31:00 Hospital ANTI-NEUTROPHILIC CYTOPLASMIC ABS 2021-11-07 Lanie Latifa [employer] PANEL 20:31:00 Hospital IMMUNOFIXATION, SERUM 2021-11-07 Lanie, Latifa [employer] [facility] 20:31:00 [facility] SERUM ELECTROPHORESIS 2021-11-07 Lanie Latifa [facility] 20:31:00 Hospital MICROSCOPIC EXAMINATION 2021-11-07 Lanie Lataury Methodis t 20:31:00 Hospital MYELOPEROXIDASE (MPO) ANTIBODIES 2021-11-07 Lanie, Latifa [facility] 20:31:00 Hospital MRI ABDOMEN W WO CONTRAST 2021-10-22 Bandar Dillon dist 15:57:01 Hospital CBC WITH PLATELET AND DIFFERENTIAL 2021-09-04 Bandar Dillon 14:21:00 Hospital COMPREHENSIVE METABOLIC PANEL 2021-09-04 Bandar Dillon ethodist 14:21:00 Hospital GGT 2021-09-04 Bandar Dillon 14:21:00 Hospital PROTHROMBIN TIME WITH INR 2021-09-04 Santana, Bandar W. Metho dist 14:21:00 Hospital IMMUNOGLOBULIN G, A, M 2021-09-04 Bandar Dillonis t 14:21:00 Hospital LIPID PANEL 2021-09-04 Bandar Dillon 14:21:00 Hospital ANTI-SMOOTH MUSCLE ANTIBODY 2021-09-04 Bandar Dillon hodist 14:21:00 Hospital ANTI MITOCHONDRIA SCREEN 2021-09-04 Bandar Dillon ist 14:21:00 Hospital ANTINUCLEAR ANTIBODIES (MEGHANA) WITH 2021-09-04 Bandar Dillon REFLEX TO TITER AND PATTERN, 14:21:00 Hos pital IMMUNOFLUORESCENCE ACUTE VIRAL HEPATITIS (HAV, HBV, 2021-09-04 Bandar Dillon HCV) 14:21:00 Hospital INTERPRETATION 2021-09-04 Bandar Dillon 14:21:00 Hospital US ABDOMINAL DOPPLER 2021-09-03 Bandar Dillon 17:16:00 Hospital US ABDOMEN COMPLETE 2021-09-03 Bandar Dillon 16:35:[address] POST MYELOGRAM THORACIC 2021-08-30 Bindal, Mike KRey Met hodist 16:39:[address] POST MYELOGRAM LUMBAR 2021-08-30 Bindal, Mike K. Metho dist 16:39:[address] POST MYELOGRAM CERVICAL 2021-08-30 Bindal, Mike K. Met hodist 16:26:33 Hospital IR MYELOGRAM 2+REG INCL INJ W S&I 2021-08-30 Trenton, Mike Muro [facility] 16:09:18 Hospital XR CERVICAL SPINE AP LATERAL 2021-07-26 Zayal, Mike K. M ethodist FLEXION AND EXTENSION 16:47:17 Hospital AST (SGOT) 2021-07-10 Karen Dela Cruz [facility] 17:55:00 Hospital ALT (SGPT) 2021-07-10 Karen Dela Cruz 17:55:00 Hospital ALBUMIN LEVEL 2021-07-10 Karen Dela Cruz 17:55:00 Hospital CREATININE LEVEL 2021-07-10 Karen Dela Cruz [facility] 17:55:00 Hospital SEDIMENTATION RATE 2021-07-10 Karen Dela Cruz 17:55:00 Hospital C-REACTIVE PROTEIN 2021-07-10 Fakoya, Latifa [facility] 17:55:00 Hospital CBC WITH PLATELET AND DIFFERENTIAL 2021-07-10 Fakoya, Juani a [facility] 17:55:00 Hospital QUANTIFERON-TB GOLD PLUS 2021-07-10 Fakoya, Latifa Metho dist 17:55:00 Hospital HEPATITIS B CORE ANTIBODY TOTAL 2021-07-10 Fakoya, Latifa [facility] 17:55:00 Hospital HEPATITIS C ANTIBODY 2021-07-10 Fakoya, Latifa [facility] 17:55:00 Hospital HEPATITIS B SURFACE ANTIBODY 2021-07-10 Fakoya, Latifa Met hodist 17:55:00 Hospital HEPATITIS B SURFACE ANTIGEN 2021-07-10 Fakoya, Latifa Meth odist 17:55:00 [facility] QUANTIFERON-TB GOLD PLUS 2021-07-10 Fakoya, Latifa Methodi st 17:55:00 Hospital US ABDOMINAL EXTERNAL STUDY 2021-03-26 David Altman Meth odist 13:51:00 Hospital Plan of Care Planned Activity Planned Date Details Comments Source Future Scheduled 2022-01-03 COVID-19 Vaccination [facility] [place] Test 11:00:31 (#1) [code = COVID-19 And taiwo Cancer Vaccination (#1)] Center Future Scheduled 2022-01-03 HEPATITIS B VACCINES [facility] Test 08:45:17 (1 of 3 - 3-dose series) [code = HEPATITIS B VACCINES (1 of 3 - 3-dose series)] Future Scheduled 2022-01-03 COLONOSCOPY SCREENING [facility] Test 08:45:17 [code = COLONOSCOPY SCREENING] Future Scheduled 2021-12-27 HEPATITIS B VACCINES [facility] Test 11:49:17 (1 of 3 - 3-dose series) [code = HEPATITIS B VACCINES (1 of 3 - 3-dose series)] Future Scheduled 2021-12-27 COLONOSCOPY SCREENING [facility] Test 11:49:17 [code = COLONOSCOPY SCREENING] Future Scheduled 2021-12-21 COVID-19 Vaccination [facility] [place] Test 11:24:29 (#1) [code = COVID-19 And erson Cancer Vaccination (#1)] Center Future Scheduled 2021-10-24 INFLUENZA VACCINE (#1) [facility] Test 00:00:00 [code = INFLUENZA Medical Ce nter VACCINE (#1)] Future Scheduled 2021-10-24 INFLUENZA VACCINE (#1) [facility] Test 00:00:00 [code = INFLUENZA Medical Ce nter VACCINE (#1)] Future Scheduled 2021-02-[address] [facility] Test 00:00:00 (12+) [code = Medical Center DEPRESSION SCREENING (12+)] Future Scheduled 2021-02-[address] [facility] Test 00:00:00 (12+) [code = Medical Center DEPRESSION SCREENING (12+)] Future Scheduled 2020-05-27 COVID-19 VACCINE (3 - [facility] Test 00:00:00 Moderna risk series) Medical Center [code = COVID-19 VACCINE (3 - Moderna risk series)] Future Scheduled 2018-01-27 SHINGLES VACCINES ([address] [facility] Test 00:00:00 of 2) [code = SHINGLES Medic al Center VACCINES (1 of 2)] Future Scheduled 2018-01-27 SHINGLES VACCINES ([address] [facility] Test 00:00:00 of 2) [code = SHINGLES Medic al Center VACCINES (1 of 2)] Future Scheduled 2003-01-[address] [facility] Test 00:00:00 (procedure) [code = [facility] Center [id number]] Future Scheduled 2003-01-[address] [facility] Test 00:00:00 (procedure) [code = [facility] Center [id number]] Future Scheduled 1987-01-27 DTAP/TDAP/TD VACCINES [facility] 00:00:00 (1 - Tdap) [code = Medical C enter DTAP/TDAP/TD VACCINES (1 - Tdap)] Future Scheduled 1987-01-27 DTAP/TDAP/TD VACCINES [facility] Test 00:00:00 (1 - Tdap) [code = Medical C enter DTAP/TDAP/TD VACCINES (1 - Tdap)] Future Scheduled 1986-01-27 HEPATITIS C SCREENING [facility] Test 00:00:00 [code = HEPATITIS C Medical Center SCREENING] Future Scheduled 1986-01-27 HEPATITIS C [facility]CRE[facility]ING [facility] Test 00:00:00 [code = HEPATITIS C Medical Center SCREENING] Future Scheduled 1974-01-[address] [facility] Test 00:00:00 0-64 YRS (1 - PCV) Medical C enter [code = PNEUMOCOCCAL VACCINE 0-64 YRS (1 - PCV)] Future Scheduled 1968 COVID-19 VACCINE (#1) [facility] 00:00:00 [code = COVID-[address] VACCINE (#1)] Future Scheduled [address] [facility] Test 00:00:00 (combo) [code = CT Medical C enter Colonography (combo)] Future Scheduled [address] [facility] 00:[facility]:00 malignant neoplasm of Medica l Center colon (procedure) [code = 717047653] Future Scheduled [address] [facility] Test 00:00:00 malignant neoplasm [facility] Center colon (procedure) [code = 511245432] Future Scheduled [address] [facility] Test 00:00:00 malignant neoplasm [facility] Center colon (procedure) [code = 624942667] Future Scheduled [address] [facility] Test 00:00:00 malignant neoplasm of Medica l Center colon (procedure) [code = 977324040] Future Scheduled 1968 Sigmoidoscopy [code [facility] 00:[facility] S[facility]oscopy] Medical Cente r Future Scheduled [address] [facility] Test 00:00:00 (combo) [code = CT Medical C enter Colonography (combo)] Future Scheduled [address] [facility] Test 00:00:00 malignant neoplasm of Medica [facility] Center colon (procedure) [code = 303905613] Future Scheduled [address] [facility] Test 00:00:00 malignant neoplasm of Medica l Center colon (procedure) [code = 676917263] Future Scheduled [address] [facility] Test 00:00:00 malignant neoplasm of Medica l Center colon (procedure) [code = 996518742] Future Scheduled [address] [facility] Test 00:00:00 malignant neoplasm of Medica l Center colon (procedure) [code = 747831388] Future Scheduled 1968 Sigmoidoscopy [code = [facility] Test 00:00:00 Sigmoidoscopy] Medical Huongmonica kelly Encounters Start End Encounter Admission Attending Care Care Encounter Source Date/Time Date/Time Type Type Clinicians Facility [id number] 00:[facility]00 Encounter Torey In [facility] 2019-09-02 Outpatient SYLVIE QUILES MDA Young/Hep/Nu [id number] 10:09:24 ZENA ye 2022-01-03 2022-01-03 Refill Dom, 1.2.840.1 [id number] [facility] 00:00:00 00:00:00 Daphne 84212.1.1 ity of 3.412.2.7 [place] .3.472291 .8 [facility] 2022-01-01 2022-01-01 Telemedici Chacho 1.2.840.1 [id number] Methodi 14:15:00 15:42:30 ne Wesly P. 59830.1.[address] 3.430.2.7 Hospit a .3.004421 l .8 2022-01-01 2022-01-01 Outpatient [facility] [id number] [place] 00:00:00 00:00:00 GAR[address]IE [address] 2021-12-26 2021-12-26 Anesthesia Allegra Acosta 1.2.840.1 [id number] Methodi 10:10:00 10:10:[address] 3.430.2.7 Hospit a .3.546428 l .8 2021-12-26 2021-12-26 Hospital Judson Tucker 1.2.840.1 [id number] 2 [id number] Methodi 07:36:00 08:20:00 Encounter Tracy 29197.1.1 992 s t 3.430.2.7 Hospit a .3.532769 l .8 2021-12-26 2021-12-26 Travel 1.2.840.1 1.2.946.755 2429 869190 Methodi 00:00:00 00:00:[address] 3.430.2.7 0.2.7.3.698 Ho spita .3.424970 084.8 l .8 2021-12-26 2021-12-26 [facility] 021 [id number] 25057 [place] 00:00:00 00:00:00 Encounter [address] 2021-12-26 2021-12-26 Travel 1.2.840.1 1.2.512.358 1998 [id number] Methodi 00:00:00 00:00:[address] 3.430.2.7 0.2.7.3.698 Ho spita .3.484400 084.8 l .8 2021-12-24 2021-12-24 Office Santana, 1.2.840.1 [id number] [id number] 6735 Methodi 10:15:00 10:35:10 Visit Bandar Rose 26207.1.[address] 3.430.2.7 Hospit a .3.007207 l .8 2021-12-24 2021-12-24 Office Santaan, 1.2.840.1 [id number] 6428 Methodi 10:15:00 10:35:10 Visit Bandar Rose 50472.1.[address] 3.430.2.7 Hospit a .3.702283 l .8 2021-12-24 2021-12-24 Travel 1.2.840.1 1.2.765.906 2851 214886 Methodi 00:00:00 00:00:[address] 3.430.2.7 0.2.7.3.698 Ho spita .3.747010 084.8 l .8 2021-12-24 2021-12-24 Travel 1.2.840.1 1.2.246.984 2035 [id number] Methodi 00:00:00 00:00:[address] 3.430.2.7 0.2.7.3.698 Ho spita .3.236203 084.8 l .8 2021-12-17 2021-12-17 Telephone Collins, 1.2.840.1 [id number] 2 [id number] Methodi 00:00:00 00:00:[address] 3.430.2.7 Hospit a .3.900506 l .8 2021-12-17 2021-12-17 Telephone Collins, 1.2.840.1 [id number] 2 [id number] Methodi 00:00:00 00:00:[address] 3.430.2.7 Hospit a .3.317795 l .8 2021-12-16 2021-12-16 Refill Fakoya, 1.2.840.1 [id number] 2432 Methodi 00:00:00 00:00:[address] 3.430.2.7 Hospit a .3.843265 l .8 2021-12-16 2021-12-16 Refill Fakoya, 1.2.840.1 [id number] 764644 2793 Methodi 00:00:00 00:00:[address] 3.430.2.7 Hospit a .3.719664 l .8 2021-12-12 2021-12-12 [facility], 1.2.840.1 [id number] 74216 55146 Methodi 08:12:26 23:59:00 Encounter Wesly Adams 10522.1.1 954 s t 3.430.2.7 Hospit a .3.194243 l .8 2021-12-12 2021-12-12 [facility], 1.2.840.1 [id number] 69995 94135 Methodi 08:12:26 23:59:00 Encounter Wesly Adams 26036.1.1 954 s t 3.430.2.7 Hospit a .3.136393 l .8 2021-12-12 2021-12-12 Travel 1.2.840.1 1.2.558.128 8244 715972 Methodi 00:00:00 00:00:[address] 3.430.2.7 0.2.7.3.698 Ho spita .3.905369 084.8 l .8 2021-12-12 2021-12-12 Travel 1.2.840.1 1.2.155.776 0006 310908 Methodi 00:00:00 00:00:[address] 3.430.2.7 0.2.7.3.698 Ho spita .3.128413 084.8 l .8 2021-12-06 2021-12-06 Susana Quiles, 1.2.840.1 [id number] 6160 Univers 00:00:00 00:00:00 Zena 53667.1.1 ity of 3.412.2.7 [place] .3.474507 MD Le8 [facility] 2021-12-06 2021-12-06 Susana Quiles, 1.2.840.1 [id number] 7671 Univers 00:00:00 00:00:00 Zena 90055.1.1 ity of 3.412.2.7 [place] .3.506842 .8 [facility] 2021-12-04 2021-12-04 Telephone de Los 1.2.840.1 [id number] 2100 093887 Methodi 00:00:00 00:00:00 Bebeto, 58626.1.[address] [place] 3.430.2.7 Hos junior .3.441904 l .8 2021-12-04 2021-12-04 Orders de Los 1.2.840.1 [id number] 033743 5119 Methodi 00:00:00 00:00:00 Only Bebeto, 02722.1.[address] [place] 3.430.2.7 Hos junior .3.415391 l .8 2021-12-04 2021-12-04 Telephone de Los 1.2.840.1 [id number] 2100 600449 Methodi 00:00:00 00:00:00 Bebeto, 86896.1.[address] [place] 3.430.2.7 Hos junior .3.436558 l .8 2021-12-04 2021-12-04 Orders de Los 1.2.840.1 [id number] 1428 Methodi 00:00:00 00:00:00 Only Bebeto, 26055.1.[address] [place] 3.430.2.7 Hos junior .3.653790 l .8 2021-12-03 2021-12-03 [facility] 1.2.840.1 [id number] 08669 96993 Methodi 11:47:00 15:26:00 Encounter Wesly Adams 94233.1.1 096 s t 3.430.2.7 Hospit a .3.079436 l .8 2021-12-03 2021-12-03 [facility] 1.2.840.1 [id number] 71487 Methodi 11:47:00 15:26:00 Encounter Wesly Adams 69302.1.1 096 s t 3.430.2.7 Hospit a .3.028755 l .8 2021-12-03 2021-12-03 Anesthesia Calixto Oliveira 1.2.840.1 966911 028 [id number] Methodi 14:33:00 14:47:00 Event Allegra Acosta 56452.1.1 107 s t 3.430.2.7 Hospit a .3.501699 l .8 2021-12-03 2021-12-03 Anesthesia Calixto Oliveira 1.2.840.1 678616 028 [id number] Methodi 14:33:00 14:47:00 Event Allegra Acosta 12417.1.1 107 s t 3.430.2.7 Hospit a .3.346588 l .8 2021-12-03 2021-12-03 Surgery Chacho, 1.2.840.1 [id number] 747498 2379 Methodi 13:00:00 13:30:[address]90[address] 3.430.2.7 Hospit a .3.192814 l .8 2021-12-03 2021-12-03 Surgery Chacho, 1.2.840.1 [id number] [id number] 8227 Methodi 13:00:00 13:30:[address] 3.430.2.7 Hospit a .3.869785 l .8 2021-12-03 2021-12-03 Travel 1.2.840.1 1.2.669.027 1274 304041 Methodi 00:00:00 00:00:[address] 3.430.2.7 0.2.7.3.698 Ho spita .3.176212 084.8 l .8 2021-12-03 2021-12-03 Travel 1.2.840.1 1.2.171.908 7833 305243 Methodi 00:00:00 00:00:[address] 3.430.2.7 0.2.7.3.698 Ho spita .3.513564 084.8 l .8 2021-12-02 2021-12-02 Telephone Zeenat, 1.2.840.1 [id number] 2100 357325 Methodi 00:00:00 00:00:[address] 3.430.2.7 Hospit a .3.766372 l .8 2021-12-02 2021-12-02 Telephone Zeenat, 1.2.840.1 [id number] 2100 047132 Methodi 00:00:00 00:00:[address] 3.430.2.7 Hospit a .3.334217 l .8 2021-11-28 2021-11-28 Travel 1.2.840.1 1.2.156.673 8442 327450 Methodi 00:00:00 00:00:[address] 3.430.2.7 0.2.7.3.698 Ho spita .3.544705 084.8 l .8 2021-11-28 2021-11-28 Travel 1.2.840.1 1.2.755.666 9074 717660 Methodi 00:00:00 00:00:[address] 3.430.2.7 0.2.7.3.698 Ho spita .3.394790 084.8 l .8 2021-11-27 2021-11-27 Travel 1.2.840.1 1.2.080.011 1435 449762 Methodi 00:00:00 00:00:[address] 3.430.2.7 0.2.7.3.698 Ho spita .3.121981 084.8 l .8 2021-11-27 2021-11-27 Travel 1.2.840.1 1.2.685.046 7965 774131 Methodi 00:00:00 00:00:[address] 3.430.2.7 0.2.7.3.698 Ho spita .3.895994 084.8 l .8 2021-11-26 2021-11-26 Orders Zeenat, 1.2.840.1 [id number] [id number] 9704 Methodi 00:00:00 00:00:00 Only Keshia 87869.1.[address] 3.430.2.7 Hospit a .3.824372 l .8 2021-11-26 2021-11-26 Orders Zeenat, 1.2.840.1 [id number] 553895 1352 Methodi 00:00:00 00:00:00 Only Keshia 92349.1.[address] 3.430.2.7 Hospit a .3.833195 l .8 2021-11-19 2021-11-19 Orders Zeenat, 1.2.840.1 [id number] 227982 8050 Methodi 00:00:00 00:00:00 Only Keshia 79454.1.[address] 3.430.2.7 Hospit a .3.958461 l .8 2021-11-19 2021-11-19 Prep for Zeenat, 1.2.840.1 [id number] 34148 44876 Methodi 00:00:00 00:00:00 Surgery Keshia 67509.1.[address] 3.430.2.7 Hospit a .3.312380 l .8 2021-11-19 2021-11-19 Orders Zeenat, 1.2.840.1 [id number] 705111 4267 Methodi 00:00:00 00:00:00 Only Keshia 56144.1.[address] 3.430.2.7 Hospit a .3.904280 l .8 2021-11-19 2021-11-19 Prep for Zeenat, 1.2.840.1 [id number] 22423 Methodi 00:00:00 00:00:00 Surgery Keshia 87491.1.[address] 3.430.2.7 Hospit a .3.761973 l .8 2021-11-13 2021-11-13 Office Chacho, 1.2.840.1 [id number] [id number] 1023 Methodi 14:00:00 15:39:38 Visit Wesly Adams 87296.1.[address] 3.430.2.7 Hospit a .3.355128 l .8 2021-11-13 2021-11-13 Office Chacho, 1.2.840.1 [id number] 597475 1178 Methodi 14:00:00 15:39:38 Visit Wesly Adams 41368.1.[address] 3.430.2.7 Hospit a .3.147342 l .8 2021-11-13 2021-11-13 Travel 1.2.840.1 1.2.875.090 6701 599706 Methodi 00:00:00 00:00:[address] 3.430.2.7 0.2.7.3.698 Ho spita .3.430295 084.8 l .8 2021-11-13 2021-11-13 Travel 1.2.840.1 1.2.501.015 7794 356290 Methodi 00:00:00 00:00:[address] 3.430.2.7 0.2.7.3.698 Ho spita .3.355572 084.8 l .8 2021-11-12 2021-11-12 Refill Fakoya, 1.2.840.1 [id number] 727119 5034 Methodi 00:00:00 00:00:[address] 3.430.2.7 Hospit a .3.547519 l .8 2021-11-12 2021-11-12 Refill Fakoya, 1.2.840.1 [id number] [id number] 5242 Methodi 00:00:00 00:00:[address] 3.430.2.7 Hospit a .3.808451 l .8 2021-11-07 2021-11-07 Office Fakoya, 1.2.840.1 [id number] 6605 Methodi 14:40:00 15:26:25 Visit Latifa 71649.1.[address] 3.430.2.7 Hospit a .3.248885 l .8 2021-11-07 2021-11-07 Office Fakoya, 1.2.840.1 [id number] 2767 Methodi 14:40:00 15:26:25 Visit Latifa 81996.1.[address] 3.430.2.7 Hospit a .3.780929 l .8 2021-11-07 2021-11-07 Orders Dom, 1.2.840.1 [id number] 69622 56093 Univers 00:00:00 00:00:00 Only Daphne 63344.1.1 ity of 3.412.2.7 [place] .3.417119 MD .8 [facility] 2021-11-07 2021-11-07 Orders Dom, 1.2.840.1 [id number] 95153 Univers 00:00:00 00:00:00 Only Daphne 25096.1.1 ity of 3.412.2.7 [place] .3.720376 .8 [facility] 2021-11-07 2021-11-07 Travel 1.2.840.1 1.2.986.463 4448 995334 Methodi 00:00:00 00:00:[address] 3.430.2.7 0.2.7.3.698 Ho spita .3.084008 084.8 l .8 2021-11-07 2021-11-07 Travel 1.2.840.1 1.2.834.276 4508 928293 Methodi 00:00:00 00:00:[address] 3.430.2.7 0.2.7.3.698 Ho spita .3.880704 084.8 l .8 2021-11-05 2021-11-05 [facility], 1.2.840.1 [id number] 21 [id number] Methodi 00:00:00 00:00:00 Only Johnson 62477.1.[address] 3.430.2.7 Hospit a .3.829495 l .8 2021-11-05 2021-11-05 [facility] 1.2.840.1 [id number] Methodi 00:00:00 00:00:00 Only Johnson 86658.1.[address] 3.430.2.7 Hospit a .3.308899 l .8 2021-10-22 2021-10-22 [facility] 1.2.840.1 [id number] 59745 76023 Methodi 08:57:12 23:59:00 Kristy Rose 45122.1.1 927 s t 3.430.2.7 Hospit a .3.125460 l .8 2021-10-22 2021-10-22 Hospital Santana, 1.2.840.1 [id number] 02679 97302 Methodi 08:57:12 23:59:00 Kristy Bandar Rose 70851.1.1 927 s t 3.430.2.7 Hospit a .3.469656 l .8 2021-10-22 2021-10-22 Travel 1.2.840.1 1.2.266.038 9064 158344 Methodi 00:00:00 00:00:[address] 3.430.2.7 0.2.7.3.698 Ho spita .3.280360 084.8 l .8 2021-10-22 2021-10-22 Travel 1.2.840.1 1.2.500.080 3557 614014 Methodi 00:00:00 00:00:[address] 3.430.2.7 0.2.7.3.698 Ho spita .3.297769 084.8 l .8 2021-10-09 2021-10-09 Susana Quiles, 1.2.840.1 [id number] 6162 Univers 00:00:00 00:00:00 Zena 84354.1.1 ity of 3.412.2.7 [place] .3.003492 MD Le8 [facility] 2021-10-09 2021-10-09 Susana Quiles, 1.2.840.1 [id number] 4824 Univers 00:00:00 00:00:00 Zena 72998.1.1 ity of 3.412.2.7 [place] .3.120725 MD Le8 [facility] 2021-09-27 2021-09-27 Travel 1.2.840.1 1.2.112.696 9523 458990 Methodi 00:00:00 00:00:[address] 3.430.2.7 0.2.7.3.698 Ho spita .3.594382 084.8 l .8 2021-09-27 2021-09-27 Travel 1.2.840.1 1.2.800.777 7288 965298 Methodi 00:00:00 00:00:[address] 3.430.2.7 0.2.7.3.698 Ho spita .3.890431 084.8 l .8 2021-09-23 2021-09-23 Refill Fakhaileya, 1.2.840.1 [id number] 7049 Methodi 00:00:00 00:00:[address] 3.430.2.7 Hospit a .3.709330 l .8 2021-09-23 2021-09-23 Refill Fakoya, 1.2.840.1 [id number] 119783 8661 Methodi 00:00:00 00:00:[address] 3.430.2.7 Hospit a .3.939644 l .8 2021-09-17 2021-09-17 Travel 1.2.840.1 1.2.694.089 2074 138330 Methodi 00:00:00 00:00:[address] 3.430.2.7 0.2.7.3.698 Ho spita .3.911125 084.8 l .8 2021-09-17 2021-09-17 Travel 1.2.840.1 1.2.196.293 4196 804477 Methodi 00:00:00 00:00:[address] 3.430.2.7 0.2.7.3.698 Ho spita .3.054122 084.8 l .8 2021-09-10 2021-09-10 Office Santana, 1.2.840.1 [id number] 215125 0320 Methodi 09:15:00 10:50:27 Visit Bandar Rose 73230.1.[address] 3.430.2.7 Hospit a .3.989725 l .8 2021-09-10 2021-09-10 Office Santana, 1.2.840.1 [id number] 362721 8374 Methodi 09:15:00 10:50:27 Visit Bandar Rose 22325.1.[address] 3.430.2.7 Hospit a .3.031020 l .8 2021-09-10 2021-09-10 Travel 1.2.840.1 1.2.422.455 9992 323290 Methodi 00:00:00 00:00:[address] 3.430.2.7 0.2.7.3.698 Ho spita .3.959685 084.8 l .8 2021-09-10 2021-09-10 Travel 1.2.840.1 1.2.333.646 6824 452720 Methodi 00:00:00 00:00:[address] 3.430.2.7 0.2.7.3.698 Ho spita .3.242901 084.8 l .8 2021-09-07 2021-09-07 Susana Quiles, 1.2.840.1 [id number] 6813 Univers 00:00:00 00:00:00 Zena 75691.1.1 ity of 3.412.2.7 [place] .3.097086 MD Le8 [facility] 2021-09-07 2021-09-07 Susana Quiles, 1.2.840.1 [id number] 2119 Univers 00:00:00 00:00:00 Zena 19037.1.1 ity of 3.412.2.7 [place] .3.015531 MD Patricio [facility] 2021-09-03 2021-09-03 [facility] Santana, 1.2.840.1 [id number] 50400 25299 Methodi 10:41:19 23:59:00 Encounter Bandar Rose 21672.1.1 691 s t 3.430.2.7 Hospit a .3.726156 l .8 2021-09-03 2021-09-03 [facility] Santana, 1.2.840.1 [id number] 21001 93405 Methodi 10:41:19 23:59:00 Encounter Bandar Rose 43646.1.1 691 s t 3.430.2.7 Hospit a .3.232529 l .8 2021-09-03 2021-09-03 [facility] Santana, 1.2.840.1 84022 Methodi 10:30:00 10:40:00 Encounter Bandar Rose 63006.1.1 690 s t 3.430.2.7 Hospit a .3.836990 l .8 2021-09-03 2021-09-03 [facility] Santana, 1.2.840.1 [id number] 21001 86619 Methodi 10:30:00 10:40:00 Encounter Bandar Rose 14646.1.1 690 s t 3.430.2.7 Hospit a .3.613448 l .8 2021-09-03 2021-09-03 Travel 1.2.840.1 1.2.063.770 5354 221007 Methodi 00:00:00 00:00:[address] 3.430.2.7 0.2.7.3.698 Ho spita .3.833181 084.8 l .8 2021-09-03 2021-09-03 Travel 1.2.840.1 1.2.425.012 8783 965231 Methodi 00:00:00 00:00:[address] 3.430.2.7 0.2.7.3.698 Ho spita .3.006677 084.8 l .8 2021-09-02 2021-09-02 Refill Kb, 1.2.840.1 [id number] 0037 Univers 00:00:00 00:00:00 Zena 45794.1.1 ity of 3.412.2.7 [place] .3.798168 .8 [facility] 2021-09-02 2021-09-02 Susana Quiles, 1.2.840.1 [id number] Univers 00:00:00 00:00:00 Zena 55445.1.1 ity of 3.412.2.7 [place] .3.155389 .8 [facility] 2021-08-30 2021-08-30 [facility], 1.2.840.1 [id number] Methodi 09:24:44 23:59:00 Encounter Mike Muro 37702.1.[address] 3.430.2.7 Hospit a .3.453054 l .8 2021-08-30 2021-08-30 [facility], 1.2.840.1 [id number] 93961 Methodi 09:24:44 23:59:00 Encounter Mike Muro 86642.1.[address] 3.430.2.7 Hospit a .3.698784 l .8 2021-08-30 2021-08-30 [facility], 1.2.840.1 [id number] 66186 Methodi 09:24:22 23:59:00 Encounter Mike Muro 65512.1.[address] 3.430.2.7 Hospit a .3.093063 l .8 2021-08-30 2021-08-30 [facility], 1.2.840.1 [id number] 21001 76266 Methodi 09:24:22 23:59:00 Encounter Mike Muro 87433.1.[address] 3.430.2.7 Hospit a .3.922419 l .8 2021-08-30 2021-08-30 [facility], 1.2.840.1 [id number] Methodi 09:23:24 09:23:24 Encounter Mike Muro 29121.1.[address] 3.430.2.7 Hospit a .3.324856 l .8 2021-08-30 2021-08-30 [facility], 1.2.840.1 [id number] 51 Methodi 09:23:24 09:23:24 Encounter Mike Muro 41028.1.[address] 3.430.2.7 Hospit a .3.767195 l .8 2021-08-30 2021-08-30 [facility], 1.2.840.1 [id number] 51 Methodi 09:23:00 09:23:00 Encounter Mike Muro 71873.1.[address] 3.430.2.7 Hospit a .3.626793 l .8 2021-08-30 2021-08-30 [facility], 1.2.840.1 [id number] Methodi 09:23:00 09:23:00 Encounter Mike Muro 13494.1.[address] 3.430.2.7 Hospit a .3.545930 l .8 2021-08-20 2021-08-20 Office [facility], 1.2.840.1 [id number] 3539 Methodi 13:40:00 15:18:[facility] 3.430.2.7 Hospit a .3.812382 l .8 2021-08-20 2021-08-20 Office [facility], 1.2.840.1 [id number] 7565 Methodi 13:40:00 15:18:[facility] 3.430.2.7 Hospit a .3.809193 l .8 2021-08-20 2021-08-20 Travel 1.2.840.1 1.2.264.174 4835 262076 Methodi 00:00:00 00:00:[address] 3.430.2.7 0.2.7.3.698 Ho spita .3.052119 084.8 l .8 2021-08-20 2021-08-20 Travel 1.2.840.1 1.2.568.242 0869 282576 Methodi 00:00:00 00:00:[address] 3.430.2.7 0.2.7.3.698 Ho spita .3.919424 084.8 l .8 2021-07-31 2021-07-31 Transcribe Bindal, 1.2.840.1 [id number] Methodi 00:00:00 00:00:00 Orders Mike Muro 17364.1.[address] 3.430.2.7 Hospit a .3.021562 l .8 2021-07-31 2021-07-31 Transcribe Bindal, 1.2.840.1 [id number] Methodi 00:00:00 00:00:00 Orders Mike Muro 66503.1.[address] 3.430.2.7 Hospit a .3.948816 l .8 2021-07-26 2021-07-26 Hospital Bindal, 1.2.840.1 [id number] 75261 03723 Methodi 11:16:19 23:59:00 Encounter Mike Muro 98343.1.[address] 3.430.2.7 Hospit a .3.778239 l .8 2021-07-26 2021-07-26 Hospital B[place]al, 1.2.840.1 [id number] 48238 22298 Methodi 11:16:19 23:59:00 Encounter Mike Muro 89273.1.[address] 3.430.2.7 Hospit a .3.268379 l .8 2021-07-26 2021-07-26 Travel 1.2.840.1 1.2.964.159 0603 202405 Methodi 00:00:00 00:00:[address] 3.430.2.7 0.2.7.3.698 Ho spita .3.095266 084.8 l .8 2021-07-26 2021-07-26 Transcribe Bindal, 1.2.840.1 [id number] Methodi 00:00:00 00:00:00 Orders Mike K. 13828.1.[address] 3.430.2.7 Hospit a .3.202058 l .8 2021-07-26 2021-07-26 Refill [facility], 1.2.840.1 [id number] 854001 0698 Methodi 00:00:00 00:00:[address] 3.430.2.7 Hospit a .3.594157 l .8 2021-07-26 2021-07-26 Travel 1.2.840.1 1.2.918.336 0122 458137 Methodi 00:00:00 00:00:[address] 3.430.2.7 0.2.7.3.698 Ho spita .3.812945 084.8 l .8 2021-07-26 2021-07-26 Transcribe Bindal, 1.2.840.1 [id number] Methodi 00:00:00 00:00:00 Orders Mike Muro 06281.1.[address] 3.430.2.7 Hospit a .3.567852 l .8 2021-07-26 2021-07-26 Refill [facility], 1.2.840.1 [id number] 3637 Methodi 00:00:00 00:00:[address] 3.430.2.7 Hospit a .3.181703 l .8 2021-07-08 2021-07-08 [facility], 1.2.840.1 [id number] 2099 [id number] Methodi 07:51:52 23:59:00 Encounter David 96404.1.[address] 3.430.2.7 Hospit a .3.979490 l .8 2021-07-08 2021-07-08 [facility], 1.2.840.1 [id number] 2099 848652 Methodi 07:51:52 23:59:00 Encounter David 96429.1.[address] 3.430.2.7 Hospit a .3.059329 l .8 2021-05-29 2021-05-29 Refill Fakoya, 1.2.840.1 [id number] 632474 2205 Methodi 00:00:00 00:00:[address] 3.430.2.7 Hospit a .3.794841 l .8 2021-05-29 2021-05-29 Refill Fakoya, 1.2.840.1 [id number] 8051 Methodi 00:00:00 00:00:[address] 3.430.2.7 Hospit a .3.327895 l .8 2021-05-28 2021-05-28 Office Santana, 1.2.840.1 [id number] 043796 1752 Methodi 13:30:00 14:41:28 Visit Bandar Rose 11550.1.[address] 3.430.2.7 Hospit a .3.076593 l .8 2021-05-28 2021-05-28 Office Santana, 1.2.840.1 [id number] 414405 0201 Methodi 13:30:00 14:41:28 Visit Bandar Rose 49513.1.[address] 3.430.2.7 Hospit a .3.727868 l .8 2021-05-28 2021-05-28 Travel 1.2.840.1 1.2.062.871 9995 720247 Methodi 00:00:00 00:00:[address] 3.430.2.7 0.2.7.3.698 Ho spita .3.976239 084.8 l .8 2021-05-28 2021-05-28 Travel 1.2.840.1 1.2.467.113 2983 693038 Methodi 00:00:00 00:00:[address] 3.430.2.7 0.2.7.3.698 Ho spita .3.672326 084.8 l .8 2021-05-14 2021-05-14 Office Fakoya, 1.2.840.1 [id number] 2053 Methodi 16:20:00 17:01:14 Visit Lataury 30801.1.[address] 3.430.2.7 Hospit a .3.050475 l .8 2021-05-14 2021-05-14 Office Lanie, 1.2.840.1 [id number] 042228 1474 Methodi 16:20:00 17:01:14 Visit Lataury 52966.1.[address] 3.430.2.7 Hospit a .3.603694 l .8 2021-05-14 2021-05-14 Travel 1.2.840.1 1.2.520.664 7282 006390 Methodi 00:00:00 00:00:[address] 3.430.2.7 0.2.7.3.698 Ho spita .3.526804 084.8 l .8 2021-05-14 2021-05-14 Travel 1.2.840.1 1.2.574.000 5663 107470 Methodi 00:00:00 00:00:[address] 3.430.2.7 0.2.7.3.698 Ho spita .3.820268 084.8 l .8 2021-05-06 2021-05-06 Refill Fakoya, 1.2.840.1 [id number] 280339 5757 Methodi 00:00:00 00:00:[address] 3.430.2.7 Hospit a .3.753096 l .8 2021-05-06 2021-05-06 Refill Fakoya, 1.2.840.1 [id number] 839922 3872 Methodi 00:00:00 00:00:[address] 3.430.2.7 Hospit a .3.068262 l .8 2021-03-26 2021-03-26 Refill Fakoya, 1.2.840.1 [id number] 716120 6014 Methodi 00:00:00 00:00:[address] 3.430.2.7 Hospit a .3.283553 l .8 2021-03-26 2021-03-26 Refill Lanie, 1.2.840.1 [id number] 767616 6324 Methodi 00:00:00 00:00:[address] 3.430.2.7 Hospit a .3.349587 l .8 2021-03-20 2021-03-20 Refill [place], 1.2.840.1 [id number] Methodi 00:00:00 00:00:[address] 3.430.2.7 Hospit a .3.504470 l .8 2021-03-20 2021-03-20 Refill [place], 1.2.840.1 [id number] Methodi 00:00:00 00:00:[address] 3.430.2.7 Hospit a .3.854255 l .8 2021-03-18 2021-03-18 Documentat [place], 1.2.840.1 [id number] Methodi 00:00:00 00:00:00 ion Zaretha 66527.1.[address] 3.430.2.7 Hospit a .3.218119 l .8 2021-03-18 2021-03-18 Documentat [place], 1.2.840.1 [id number] Methodi 00:00:00 00:00:00 ion Zaretha 92514.1.[address] 3.430.2.7 Hospit a .3.805482 l .8 2021-03-12 2021-03-12 Refill [place], 1.2.840.1 [id number] Methodi 00:00:00 00:00:[address] 3.430.2.7 Hospit a .3.161720 l .8 2021-03-12 2021-03-12 Refill Beauchamp, 1.2.840.1 [id number] 21 [id number] Methodi 00:00:00 00:00:[address] 3.430.2.7 Hospit a .3.229221 l .8 2021-03-10 2021-03-10 Refill Kb, 1.2.840.1 [id number] 8074 Univers 00:00:00 00:00:00 Zena 71464.1.1 ity of 3.412.2.7 [place] .3.231120 .8 [facility] 2021-03-10 2021-03-10 Refill Kb, 1.2.840.1 [id number] 209918 3421 Univers 00:00:00 00:00:00 Zena 33892.1.1 ity of 3.412.2.7 [place] .3.974037 .8 [facility] 2021-02-20 2021-02-20 Refill Roberta, 1.2.840.1 [id number] [id number] 6590 Methodi 00:00:00 00:00:[address] 3.430.2.7 Hospit a .3.470763 l .8 2021-02-20 2021-02-20 Refill Roberta, 1.2.840.1 [id number] 693031 7761 Methodi 00:00:00 00:00:[address] 3.430.2.7 Hospit a .3.946416 l .8 2021-02-14 2021-02-14 Refill [place], 1.2.840.1 [id number] Methodi 00:00:00 00:00:[address] 3.430.2.7 Hospit a .3.059810 l .8 2021-02-14 2021-02-14 Refill Nito, 1.2.840.1 [id number] 21 [id number] Methodi 00:00:00 00:00:[address] 3.430.2.7 Hospit a .3.198056 l .8 2021-02-13 2021-02-13 Office [facility], 1.2.840.1 [id number] 775306 6858 Methodi 09:40:00 10:52:09 Visit Karen [address]8900.1.[address] 3.430.2.7 Hospit a .3.759116 l .8 2021-02-13 2021-02-13 Office [facility], 1.2.840.1 [id number] 109808 4315 Methodi 09:40:00 10:52:09 Visit Karen [address]4029.1.[address] 3.430.2.7 Hospit a .3.311677 l .8 2021-02-13 2021-02-13 Documentat [place], 1.2.840.1 [id number] Methodi 00:00:00 00:00:00 ion Johnson 01926.1.[address] 3.430.2.7 Hospit a .3.479967 l .8 2021-02-13 2021-02-13 Travel 1.2.840.1 1.2.123.335 9459 687412 Methodi 00:00:00 00:00:[address] 3.430.2.7 0.2.7.3.698 Ho spita .3.867375 084.8 l .8 2021-02-13 2021-02-13 Documentat [place], 1.2.840.1 [id number] Methodi 00:00:00 00:00:00 ion Johnson 53865.1.[address] 3.430.2.7 Hospit a .3.794665 l .8 2021-02-13 2021-02-13 Travel 1.2.840.1 1.2.657.769 7454 165932 Methodi 00:00:00 00:00:[address] 3.430.2.7 0.2.7.3.698 Ho spita .3.795495 084.8 l .8 2021-01-31 2021-01-31 Documentat [place], 1.2.840.1 [id number] Methodi 00:00:00 00:00:00 ion Zaretha 67735.1.[address] 3.430.2.7 Hospit a .3.409872 l .8 2021-01-31 2021-01-31 Documentat [place], 1.2.840.1 [id number] Methodi 00:00:00 00:00:00 ion Zaretha 77372.1.[address] 3.430.2.7 Hospit a .3.922565 l .8 2020-11-30 2020-11-30 Outpatient MCMENEMY, [facility] [id number] [place] 00:00:00 00:00:00 RIANA Draper Method i 2020-11-14 2020-11-14 Outpatient [facility] [id number] 903 [place] 00:00:00 00:00:00 773 Method i 2020-11-02 2020-11-02 Outpatient ROBLEDO, [facility] 360 [id number] 490 [place] 00:00:00 00:00:00 ARMANDO 07Carmen Method i 2020-09-28 2020-09-28 Outpatient BINDAL, [facility] [id number] 297 [place] 00:00:00 00:00:00 MIKE 534 Method i 2020-09-28 2020-09-28 Outpatient BINDAL, [facility] [id number] 297 [place] 00:00:00 00:00:00 MIKE 537 Method i 2020-08-31 2020-08-31 Outpatient BINDAL, [facility] [id number] [place] 00:00:00 00:00:00 MIKE 291 Method i 2020-05-29 2020-05-29 Outpatient BINDAL, [facility] [id number] 778 [place] 00:00:00 00:00:00 MIKE 923 Method i 2020-04-19 2020-04-19 Outpatient FAKOYA, [facility] [id number] 156 [place] 00:00:00 00:00:00 LATIFA [address] 2020-02-08 2020-02-08 Outpatient [facility] [id number] [facility] 00:00:00 00:00:00 2020-02-08 2020-02-08 Outpatient EL [facility] [id number] 117 [facility] 00:00:00 00:00:00 2020-01-18 2020-01-18 Outpatient [facility] [id number] [place] 00:00:00 00:00:[address] 2019-12-15 2019-12-[address] [facility] MDA [id number] 552 [place] 13:56:15 14:04:22 ZENA Brandon o n 2019-11-18 2019-11-18 [facility] [id number] 522 [place] 00:00:00 00:00:00 ARMANDO [address] 2019-11-04 2019-11-04 [facility] 578 [id number] 540 [place] 00:00:00 00:00:00 ARMANDO [address] 2019-10-05 2019-10-05 Outpatient [facility] [id number] 934 [place] 00:00:00 00:00:00 LATIFA [address] 2019-09-20 2019-09-20 Outpatient [facility] [id number] 562 [place] 00:00:00 00:00:00 TOMER [address] 2019-08-15 2019-08-15 Outpatient [facility] [id number] 260 [place] 00:00:00 00:00:00 TOMER, [address] 2019-08-10 2019-08-10 Outpatient [facility] [id number] [place] 00:00:00 00:00:00 TOMER [address] 2019-08-01 2019-08-01 Outpatient [facility] [id number] 702 [place] 00:00:00 00:00:00 TOMER 0[address] 2019-08-01 2019-08-01 Outpatient [facility] [id number] 279 [place] 00:00:00 00:00:[address] 2019-07-15 2019-07-15 Outpatient FAKOYA, [facility] [id number] 953 [place] 00:00:00 00:00:00 LATIFA 169 Method i 2019-06-07 2019-06-07 Outpatient LANIE [facility] [id number] 278 [place] 00:00:00 00:00:00 LATIFA 505 Method i 2018-11-18 2018-11-18 Outpatient SYLVIE QUILES MDA MDA [id number] 12:40:38 12:41:11 ZENA ye 2018-09-27 2018-09-27 Outpatient [facility] ANA 7503 Memoria 17:58:00 17:58:00 [facility] 2018-07-24 2018-07-24 Outpatient [facility] NAA 9152 Memoria 10:55:00 10:55:00 l [place] [facility] 2018-07-22 2018-07-22 Inpatient [facility] ANA 7502 Memoria 10:02:00 05:49:00 l [place] [facility] Results Test Description Test Time Test Comments Results Result Comments Source Comprehensive metabolic panel 2021-12-14 10:09:00 Test Item Value Reference Range Interpretation Comme nts Glucose (test code = 132 mg/dL 70-99 H 2345-7) BUN (test code = 3094-0) 4 mg/dL 6-24 L Creatinine (test code = 0.71 mg/dL 0.76-1.27 L 2160-0) eGFR (test code = 8257) 110 mL/min/1.73 See_Comment [Automated message] The system [employer] generated this result transmitted ref erence range: >=59. Th e reference range was not used to interpr et this result as normal/abnormal . BUN/creatinine ratio (test 9-20 L code = 3097-3) Sodium (test code = 133 mmol/L 134-144 L 2951-2) Potassium (test code = 4.3 mmol/L 3.5-5.2 2823-3) Chloride (test code = 91 mmol/L 96-106 L 2075-0) CO2 (test code = 2027-9) 26 mmol/L 20-29 Calcium (test code = 8.9 mg/dL 8.7-10.2 45208-4) Protein (test code = 6.5 g/dL 6.0-8.5 2885-2) Albumin, S (test code = 4.3 g/dL 3.8-4.9 1751-7) Globulin, total (test code 2.2 g/dL 1.5-4.5 = 51540-3) Albumin/globulin ratio 1.2-2.2 (test code = 1759-0) Total bilirubin (test code 0.4 mg/dL 0.0-1.2 = 1975-2) Alkaline phosphatase (test See_Comment [Automated message] code = 6768-6) The system [employer] generated this result transmitted ref erence range: 44 - 121 IU/L. The reference r narciso was not used to int erpret this result as normal/abnormal . AST (test code = 1920-8) See_Comment H [A utomated message] The system [employer] generated this result transmitted ref erence range: 0 - 40 I U/L. The reference range was not used to interpr et this result as normal/abnormal . ALT (test code = 1742-6) See_Comment [A utomated message] The system [employer] generated this result transmitted ref erence range: 0 - 44 I U/L. The reference range was not used to interpr et this result as normal/abnormal . NATTY (test code = NATTY) Performed at: - Lab[address] [id number] Director: Max Gresham MD, Phone: [phone] Lab Interpretation (test Abnormal code = 41693-5) [id number] 10:09:00 Test Item Value Reference Range Interpretation Comments GGT (test code See_Comment [Automated m essage] = 2324-2) The system [employer] generated this result transmit jared reference range : 0 - 65 IU/L. The reference range was not used to interpret this result as normal/abnormal . NATTY (test code Performed at: - = NATTY) [facility] [id number] Director: Max Gresham MD, Phone: [phone] [facility] CampusImmunoglobulin G, A, [id number] 10:09:00 Test Item Value Reference Range Interpretation Comments IgG (test code = 939 mg/dL 603-1613 2465-3) IgA (test code = 329 mg/dL 90-386 2458-8) IgM (test code = 82 mg/dL 20-172 2472-9) NATTY (test code = Performed at: NATTY) [facility] [id number] Director: Max Gresham MD, Phone: [phone] [facility] CampusProthrombin time with [id number] 10:09:00 Test Item Value Reference Range Interpretation [...] (test code = Performed at: NATTY) - [facility] [id number] Director: Max Gresham MD, Phone: [phone] [facility] CampusComprehensive metabolic [id number] 10:09:00 Test Item Value Reference Range Interpretation Comments Glucose (test code = 132 mg/dL 70-99 H 2345-7) BUN (test code = 4 mg/dL 6-24 L 3094-0) Creatinine (test code 0.71 mg/dL 0.76-1.27 L = 2160-0) eGFR (test code = 110 mL/min/1.73 See_Comment [Autom ated 8268) message] The system which generated this result transmitted reference range : >=59. The reference range was not used to interpret this result as normal/abnormal . BUN/creatinine ratio 9-20 L (test code = 3097-3) Sodium (test code = 133 mmol/L 134-144 L 2951-2) Potassium (test code 4.3 mmol/L 3.5-5.2 = 2823-3) Chloride (test code = 91 mmol/L 96-106 L 2074-0) CO2 (test code = 26 mmol/L 20-29 2027-9) Calcium (test code = 8.9 mg/dL 8.7-10.2 79931-0) Protein (test code = 6.5 g/dL 6.0-8.5 2885-2) Albumin, S (test code 4.3 g/dL 3.8-4.9 = 1751-7) Globulin, total (test 2.2 g/dL 1.5-4.5 code = 10560-3) Albumin/globulin 1.2-2.2 ratio (test code = 1759-0) Total bilirubin (test 0.4 mg/dL 0.0-1.2 code = 1974-2) Alkaline phosphatase See_Comment [Autom ated (test code = 6768-6) message ] The system which generated this result transmitted reference range : 44 - 121 IU/L. The reference range was not used to interpr et this result as normal/abnormal . AST (test code = See_Comment H [Automated 1919-09) message] The system which generated this result transmitted reference range : 0 - 40 IU/L. Th e reference range was not used to interpret this result as normal/abnormal . ALT (test code = See_Comment [Automated 1741-07) message] The system which generated this result transmitted reference range : 0 - 44 IU/L. Th e reference range was not used to interpret this result as normal/abnormal . NATTY (test code = NATTY) Performed at: - [facility] [id number] Director: Max Gresham MD, Phone: [phone] Lab Interpretation Abnormal (test code = 68094-6) [facility] [id number] 10:09:00 Test Item Value Reference Range Interpretation Comments GGT (test code See_Comment [Automated m essage] = 5804-2) The system [employer] generated this result transmit jared reference range : 0 - 65 IU/L. The reference range was not used to interpret this result as normal/abnormal . NATTY (test code Performed at: - = NATTY) [facility] [id number] Director: Max Gresham MD, Phone: [phone] [facility] CampusImmunoglobulin G, A, [id number] 10:09:00 Test Item Value Reference Range Interpretation Comments IgG (test code = 939 mg/dL 603-1613 2465-3) IgA (test code = 329 mg/dL 90-386 2458-8) IgM (test code = 82 mg/dL 20-172 2472-9) NATTY (test code = Performed at: ) [facility] [id number] Director: Max Gresham MD, Phone: [phone] [facility] CampusProthrombin time with [id number] 10:09:00 Test Item Value Reference Range Interpretation [...] code = Performed at: NATTY) - [facility] [address] [id number] Director: Max Gresham MD, Phone: [phone] [facility] CampusCBC with platelet and cggukindiqza5313-25-70 05:07:00 Test Item Value Reference Range Interpretation Comments WBC (test code = See_Comment [Automated 9387-2) message] The system which generated this result transmitted reference range : 3.4 - 10.8 x10E3/uL. The reference range was not used to interpret this result as normal/abnormal . RBC (test code = See_Comment L [Automated 074-8) message] The system which generated this result [...] 0 % Not Estab. (test code = 30823-4) Immature See_Comment [Automated granulocytes, message] The absolute (test code = system which 50414-5) generated this result transmitted reference range : 0.0 - 0.1 x10E3/uL. The reference range was not used to interpret this result as normal/abnormal . NATTY (test code = NATTY) Performed at: [facility] [id number] Director: Max Gresham MD, Phone: [phone] Lab Interpretation Abnormal (test code = 93948-9) [facility] with platelet and vrbmkucwzvji9503-71-47 05:07:00 Test Item Value Reference Range Interpretation Comments WBC (test code = See_Comment [Automated 9690-2) message] The system which generated this result transmitted reference range : 3.4 - 10.8 x10E3/uL. The reference range was not used to interpret this result as normal/abnormal . RBC (test code = See_Comment L [Automated 449-8) message] The system which generated this result [...] 0 % Not Estab. (test code = 60360-2) Immature See_Comment [Automated granulocytes, message] The absolute (test code = system which 24068-1) generated this result transmitted reference range : 0.0 - 0.1 x10E3/uL. The reference range was not used to interpret this result as normal/abnormal . NATTY (test code = NATTY) Performed at: [facility] [id number] Director: Max Gresham MD, Phone: [phone] Lab Interpretation Abnormal (test code = 63433-0) [facility] pathology [id number] 18:57:42 Test Item Value Reference Range Interpretation Comments Case number (test code = [id number]) Surgical pathology See link below for report (test code = PDF Lab Report 2255) Result status (test code This is Final Report = [id number]) [id number] [facility] [id number] 18:57:42 Test Item Value Reference Range Interpretation Comments Case number (test code = [id number]) Surgical pathology See link below for report (test code = PDF Lab Report 2255) Result status (test code This is Final Report = [id number]) for [id number] [facility] [id number] 10:10:00 Test Item Value Reference Range Interpretation Comments Protein (test 6.7 g/dL 6.0-8.5 code = 2885-2) Albumin, S 4.0 g/dL 2.9-4.4 (test code = 2862-1) Dpibo-1-pzclmtp 0.3 g/dL 0.0-0.4 n (test code = 2865-4) Yyjig-1-kwbgcme 0.6 g/dL 0.4-1.0 n (test code = 2868-8) Beta globulin 1.0 g/dL 0.7-1.3 (test code = 2871-2) Gamma globulin 0.9 g/dL 0.4-1.8 (test code = 2874-6) M-Dewayne, % Not Observed Not Observed (test code = g/dL 28188-3) Globulin, total 2.7 g/dL 2.2-3.9 (test code = 04895-6) Albumin/globuli 0.7-1.7 n ratio (test code = 1759-0) Please note Comment Protein (test code = electrophoresis scan [id number]) will follow via computer, mail, nate LUZ (test code Performed at: 01 = NATTY) - [facility] [id number] Director: Max Gresham MD, Phone: [phone] ed at: 02 - [facility] [address], [place], [place] [id number] Director: SALLY Bailey MD, Phone: [phone] [facility] [id number] 10:10:00 Test Item Value Reference Range Interpretation Comments Protein (test 6.7 g/dL 6.0-8.5 code = 2885-2) Albumin, S 4.0 g/dL 2.9-4.4 (test code = 2862-1) Niblo-9-rmrvzzi 0.3 g/dL 0.0-0.4 n (test code = 2865-4) Ruxlu-1-aymbuuc 0.6 g/dL 0.4-1.0 n (test code = 2868-8) Beta globulin 1.0 g/dL 0.7-1.3 (test code = 2871-2) Gamma globulin 0.9 g/dL 0.4-1.8 (test code = 2874-6) M-Dewayne, % Not Observed Not Observed (test code = g/dL 61333-7) Globulin, total 2.7 g/dL 2.2-3.9 (test code = 75058-8) Albumin/globuli 0.7-1.7 n ratio (test code = 1759-0) Please note Comment Protein (test code = electrophoresis scan [id number]) will follow via computer, mail, orcodahlia corbett. NATTY (test code Performed at: 01 = NATTY) - [facility] [address] [id number] Director: Max Gresham MD, Phone: [phone] ed at: 02 - [facility], [place] [id number] Director: SALLY Bailey MD, Phone: [phone] [facility] CampusImmunofixation, [id number] 22:08:00 Test Item Value Reference Range Interpretation Comments Immunofixation Comment The immunofix ation , serum (test pattern appear s code = unremarkable. E vidence 32611-2) ofmonoclonal pr otein is not apparent . IgG (test code 891 mg/dL 603-1613 = 2465-3) IgA (test code 286 mg/dL 90-386 = 2458-8) IgM (test code 78 mg/dL 20-172 = 2472-9) NATTY (test code Performed at: 01 - = NATTY) [facility] [address], [place] [id number] Director: SALLY Bailey MD, Phone: [phone] d at: [address] [id number] Director: Max Gresham MD, Phone: [phone] [facility] CampusImmunofixation, [id number] 22:08:00 Test Item Value Reference Range Interpretation Comments Immunofixation Comment The immunofix ation , serum (test pattern appear s code = unremarkable. E vidence 36863-4) ofmonoclonal pr otein is not apparent . IgG (test code 891 mg/dL 603-1613 = 2465-3) IgA (test code 286 mg/dL 90-386 = 2458-8) IgM (test code 78 mg/dL 20-172 = 2472-9) NATTY (test code Performed at: 01 - = NATTY) [address], [place] [id number] Director: SALLY Bailey MD, Phone: [phone] d at: - [address] [id number] Director: Max Gresham MD, Phone: [phone] [facility] CampusAnti-neutrophilic cytoplasmic Abs lyedi1920-48-36 20:10:00 Test Item Value Reference Interpretation Comments Range C-ANCA (test <1:20 See_Comment [Automated mes lacho] The code = 31599-0) system which generated this result tra nsmitted reference range : Neg:<1:20 titer . The reference range was not used to interpr et this result as normal/abnormal . Perinuclear <1:20 See_Comment The presence of positive (P-ANCA) (test fluorescence exhibiting code = 77688-4) P-ANCA or C- ANCApatterns alone is not sp ecific for the diagnosis o f Marco Antonio'sGranul omatosis (WG) or microsc opic polyangiitis. D ecisions abouttreatment should not be based solely on ANCA IFA results. TheInternationa l ANCA Group Consensus recommends foll ow up testing ofposit meron sera with both SD-3 and MPO-ANCA enzyme immunoassays. A smany as [...] code = pattern has bee n observed 79900-1) in a significantperc entage of patients with u lcerative colitis, primar y sclerosingchola ngitis and autoimmune hepa titis. [Automated mess age] The system which ge nerated this result tra nsmitted reference range : Neg:<1:20 titer . The reference range was not used to interpr et this result as normal/abnormal . NATTY (test code = Performed at: NATTY) - [address] [id number] Director: Seth Garcia MD, Phone: [phone] [facility] CampusAnti-neutrophilic cytoplasmic Abs [id number] 20:10:00 Test Item Value Reference Interpretation Comments Range C-ANCA (test <1:20 See_Comment [Automated Traackr lacho] The code = 59637-5) system which generated this result tra nsmitted reference range : Neg:<1:20 titer . The reference range was not used to interpr et this result as normal/abnormal . Perinuclear <1:20 See_Comment The presence of positive (P-ANCA) (test fluorescence exhibiting code = 83657-7) P-ANCA or C- ANCApatterns alone is not sp ecific for the diagnosis o f Marco Antonio'sGranul omatosis (WG) or microsc opic polyangiitis. D ecisions abouttreatment should not be based solely on ANCA IFA results. TheInternationa l ANCA Group Consensus recommends foll ow up testing ofposit meron sera with both SD-3 and MPO-ANCA enzyme immunoassays. A smany as [...] code = pattern [place] bee n observed 50502-2) in a significantperc entage of patients with u lcerative colitis, primar y sclerosingchola ngitis and autoimmune hepa titis. [Automated mess age] The system which ge nerated this result tra nsmitted reference range : Neg:<1:20 titer . The reference range was not used to interpr et this result as normal/abnormal . NATTY (test code = Performed at: [facility] - [address] [id number] Director: Seth Garcia MD, Phone: [phone] [facility] HospitalMyel[facility]oxidase ([facility]O) zpiucclcis7142-66-45 18:11:00 Test Item Value Reference Range Interpretation Comments Myeloperoxidase (MPO) <0.2 See_Comment [Auto mated antibodies (test code messag e] The = 32072-4) system which generated this result transmitted reference range : 0.0 - 0.9 units . The reference range was not used to interpr et this result as normal/abnormal . NATTY (test code = NATTY) Performed at: - [address] [id number] Director: Seth Garcia MD, Phone: [phone] [facility] HospitalProteinase-3 (SD-3) tyrlaqajzf3725-76-98 18:11:00 Test Item Value Reference Range Interpretation Comments Proteinase-3 <0.2 See_Comment [Automated (SD-3) antibodies message] T he (test code = system which 08568-3) generated this result transmit jared reference range : 0.0 - 0.9 units . The reference range was not u sed to interpret th is result as normal/abnormal . NATTY (test code = Performed at: - NATTY) [address] [id number] Director: Seth Garcia MD, Phone: [phone] [facility] HospitalMyeloperoxidase (MPO) cenjxoydxo5570-12-36 18:11:00 Test Item Value Reference Range Interpretation Comments Myeloperoxidase (MPO) <0.2 See_Comment [Auto mated antibodies (test code messag e] The = 39480-8) system which generated this result transmitted reference range : 0.0 - 0.9 units . The reference range was not used to interpr et this result as normal/abnormal . NATTY (test code = NATTY) Performed at: [address] [id number] Director: Seth Garcia MD, Phone: [phone] [facility] CampusProteinase-3 (SD-3) mriklaumqe9950-38-49 18:11:00 Test Item Value Reference Range Interpretation Comments Proteinase-3 <0.2 See_Comment [Automated (SD-3) antibodies message] T he (test code = system which 41366-9) generated this result transmit jared reference range : 0.0 - 0.9 units . The reference range was not u sed to interpret th is result as normal/abnormal . NATTY (test code = Performed at: [facility] [address] [id number] Director: Seth Garcia MD, Phone: [phone] [facility] CampusUrinalysis, automated with uyzoebpmxt7614-39-98 14:11:00 Test Item Value Reference Range Interpretation Comments Specific gravity, 1.005-1.030 urine (test code = 5811-5) pH, urine (test 5.0-7.5 code = 5803-2) Color, UA (test Yellow Yellow code = 5778-6) Appearance (test Clear Clear code = 5767-9) WBC esterase, urine Negative Negative (test code = 5799-2) Protein, UA (test Negative Negative/Trace code = 70297-6) Glucose, urine Negative Negative (test code = 21482-7) Ketones, UA (test Negative Negative code = 2514-8) Occult blood, urine Negative Negative (test code = 5794-3) Bilirubin, UA (test Negative Negative code = 5770-3) Urobilinogen, UA 0.2 mg/dL 0.2-1.0 (test code = 75155-0) Nitrite, UA (test Negative Negative code = 5802-4) Microscopic See below: Microscopic was examination (test indicated and was code = 75914-0) performed. NATTY (test code = Performed at: [facility] - [address] [id number] Director: Max Gresham MD, Phone: [phone] [facility] CampusMicroscopic Ukwxznmnaji9123-80-29 14:11:00 Test Item Value Reference Range Interpretation Comments WBC, UA (test code None seen See_Comment [Automat ed = 5821-4) message] The system which generated this result transmit jared reference range : 0 - 5 /hpf. The reference range was not used to interpret this result as normal/abnormal . RBC, UA (test code None seen See_Comment [Automat ed = 44615-9) message] The system which generated this result [...] code = None seen None seen /lpf 13168-4) Bacteria, UA (test None seen None seen/Few code = 5769-5) NATTY (test code = Performed at: 01 - NATTY) [facility] [address] [id number] Director: Max Gresham MD, Phone: [phone] [facility] CampusUrinalysis, automated with qembxzkfvc8094-97-19 14:11:00 Test Item Value Reference Range Interpretation Comments Specific gravity, 1.005-1.030 urine (test code = 5811-5) pH, urine (test 5.0-7.5 code = 5803-2) Color, UA (test Yellow Yellow code = 5778-6) Appearance (test Clear Clear code = 5767-9) WBC esterase, urine Negative Negative (test code = 5799-2) Protein, UA (test Negative Negative/Trace code = 72449-6) Glucose, urine Negative Negative (test code = 89721-6) Ketones, UA (test Negative Negative code = 2514-8) Occult blood, urine Negative Negative (test code = 5794-3) Bilirubin, UA (test Negative Negative code = 5770-3) Urobilinogen, UA 0.2 mg/dL 0.2-1.0 (test code = 29351-2) Nitrite, UA (test Negative Negative code = 5802-4) Microscopic See below: Microscopic was examination (test indicated and was code = 81755-9) performed. NATTY (test code = Performed at: NATTY) - [address] [id number] Director: Max Gresham MD, Phone: [phone] [facility] CampusMicroscopic Xrexfcirqup2159-40-03 14:11:00 Test Item Value Reference Range Interpretation Comments WBC, UA (test code None seen See_Comment [Automat ed = 5821-4) message] The system which generated this result transmit jared reference range : 0 - 5 /hpf. The reference range was not used to interpret this result as normal/abnormal . RBC, UA (test code None seen See_Comment [Automat ed = 81073-8) message] The system which generated this result [...] code = None seen None seen /lpf 75461-6) Bacteria, UA (test None seen None seen/Few code = 5769-5) NATTY (test code = Performed at: NATTY) [address] [id number] Director: Max Gresham MD, Phone: [phone] [facility] CampusAlbumin fpegk6760-73-91 12:17:00 Test Item Value Reference Range Interpretation Comments Albumin, S (test 4.6 g/dL 3.8-4.9 code = 1751-7) NATTY (test code = Performed at: NATTY) [address] [id number] Director: Max Gresham MD, Phone: [phone] [facility] (SGOT)2021-11-08 12:17:00 Test Item Value Reference Range Interpretation Comments AST (test code = See_Comment H [Automated 1919-09) message] The system which generated this result transmitted reference range : 0 - 40 IU/L. Th e reference range was not used to interpret this result as normal/abnormal . NATTY (test code = NATTY) Performed at: - [address] [id number] Director: Max Gresham MD, Phone: [phone] Lab Interpretation Abnormal (test code = 95432-8) [facility]ALT (SGPT)2021-11-08 12:17:00 Test Item Value Reference Range Interpretation Comments ALT (test code See_Comment [Automated m essage] = 1742-6) The system whic h generated this result transmit jared reference range : 0 - 44 IU/L. The reference range was not used to interpret this result as normal/abnormal . NATTY (test code Performed at: - = NATTY) [address] [id number] Director: Max Gresham MD, Phone: [phone] [facility] CampusC-reactive nwzgsxs9358-28-48 12:17:00CRP<10 - 10 mg/[facility]ABC[facility]PMethtyler [facility] hospitalst HospitalSedimentation lztc8772-16-54 12:17:00 Test Item Value Reference Range Interpretation Comments Sedimentation rate See_Comment [Automat ed (test code = 4537-7) message ] The system which generated this result transmitted reference range : 0 - 30 mm/hr. T he reference range was not used to interpret this result as normal/abnormal . NATTY (test code = Performed at: NATTY) - [address] [id number] Director: Max Gresham MD, Phone: [phone] [facility] CampusAlbumin idwwo5237-39-73 12:17:00 Test Item Value Reference Range Interpretation Comments Albumin, S (test 4.6 g/dL 3.8-4.9 code = 1751-7) NATTY (test code = Performed at: - NATTY) [address] [id number] Director: Max Gresham MD, Phone: [phone] [facility] CampusAST (SGOT)2021-11-08 12:17:00 Test Item Value Reference Range Interpretation Comments AST (test code = See_Comment H [Automated 1919-09) message] The system which generated this result transmitted reference range : 0 - 40 IU/L. Th e reference range was not used to interpret this result as normal/abnormal . NATTY (test code = NATTY) Performed at: 01 - [address] [id number] Director: Max Gresham MD, Phone: [phone] Lab Interpretation Abnormal (test code = 23731-6) [facility] 12:17:00 Test Item Value Reference Range Interpretation Comments ALT (test code See_Comment [Automated m essage] = 1742-6) The system [employer] generated this result transmit jared reference range : 0 - 44 IU/L. The reference range was not used to interpret this result as normal/abnormal . NATTY (test code Performed at: - = NATTY) [address] [id number] Director: Max Gresham MD, Phone: [phone] [facility] CampusC-reactive jxuuxmz9330-53-02 12:17:00CRP<10 - 10 mg/LLABCORPMethodist HospitalSedimentation eitu1695-37-64 12:17:00 Test Item Value Reference Range Interpretation Comments Sedimentation rate See_Comment [Automat ed (test code = 4537-7) message ] The system which generated this result transmitted reference range : 0 - 30 mm/hr. T he reference range was not used to interpret this result as normal/abnormal . NATTY (test code = Performed at: NATTY) - [address] [id number] Director: Max Gresham MD, Phone: [phone] [facility] CampusAnti-smooth muscle loyvtyiw8184-22-92 21:07:00 Test Item Value Reference Range Interpretation Comments F-actin See_Comment Negative 0 - 1 9 (smooth Weak positive 2 0 - muscle) Ab, 30 Moderate to IgG (test code strong positi ve >30 = 66896-5) Actin Antibodie s are found in 52-85% of patients with autoimmune hepa titis or chronic acti ve hepatitis and i n 22% of patients wit h primary biliary cirrhosis. [Automated mess age] The system [employer] generated this result transmit jared reference range : 0 - 19 Units. The reference range was not used to interpret this result as normal/abnormal . NATTY (test code Performed at: - = NATTY) [address] [id number] Director: Seth Garcia MD, Phone: [phone] [facility] mitochondria mqbhpu3058-38-15 21:07:00 Test Item Value Reference Range Interpretation Comments Mitochondrial Ab <20.0 See_Comment Negative 0 .0 - (test code = 20.0 Equivocal 98455-8) 20.1 - 24.9 Positive >24.9Mitochondr ia l (M2) Antibodi es are found in 90-96% ofpatien ts with primary biliary cirrhosis. [Automated message] The system which generated this result transmitted reference range : 0.0 - 20.0 Unit s. The reference range was not used to interpr et this result as normal/abnormal . NATTY (test code = Performed at: NATTY) - [address] [id number] Director: eSth Garcia MD, Phone: [phone] [facility]-smooth muscle enyuhigs9958-87-43 21:07:00 Test Item Value Reference Range Interpretation Comments F-actin See_Comment Negative 0 - 1 9 (smooth Weak positive 2 0 - muscle) Ab, 30 Moderate to IgG (test code strong positi ve >30 = 69960-0) Actin Antibodie s are found in 52-85% of patients with autoimmune hepa titis or chronic acti ve hepatitis and i n 22% of patients wit h primary biliary cirrhosis. [Automated mess age] The system [employer] generated this result transmit jared reference range : 0 - 19 Units. The reference range was not used to interpret this result as normal/abnormal . NATTY (test code Performed at: - = NATTY) [address] [id number] Director: Seth Garcia MD, Phone: [phone] [facility] mitochondria evchyn7692-16-15 21:07:00 Test Item Value Reference Range Interpretation Comments Mitochondrial Ab <20.0 See_Comment Negative 0 .0 - (test code = 20.0 Equivocal 04714-7) 20.1 - 24.9 Positive >24.9Mitochondr ia l (M2) Antibodi es are found in 90-96% ofpatien ts with primary biliary cirrhosis. [Automated message] The system which generated this result transmitted reference range : 0.0 - 20.0 Unit s. The reference range was not used to interpr et this result as normal/abnormal . NATTY (test code = Performed at: NATTY) - [address] [id number] Director: Seth Garcia MD, Phone: [phone] [facility] AzleYwwvjudvZLCORFTVOIJXHR8570-53-85 13:12:00 Test Item Value Reference Range Interpretation Comments Interpretation (test Comment Negativ eNot code = 12180-9) infected wit h HCV, unless recent infection is suspected or otherevidence exists to indic ate HCV infection. NATTY (test code = Performed at: NATTY) - [address] [id number] Director: Max Gresham MD, Phone: [phone] [facility] CampusAcute Viral Hepatitis (HAV, HBV, HCV)2021-09-06 13:12:00 Test Item Value Reference Range Interpretation Comments Hepatitis A IgM Negative Negative (test code = 56830-5) Hepatitis B Negative Negative surface Ag (test code = 5196-1) Hepatitis B core Negative Negative IgM (test code = 76544-6) Hepatitis C Ab <0.1 See_Comment [Automated (test code = message] The sy stem 69872-0) which generated this result transmitted reference range : 0.0 - 0.9 s/co ratio. The reference range was not used to interpret this result as normal/abnormal . NATTY (test code = Performed at: NATTY) [address] [id number] Director: Max Gresham MD, Phone: [phone] [facility] AzleQujuozrlYGFCGAEAZWJFHO5987-12-88 13:12:00 Test Item Value Reference Range Interpretation Comments Interpretation (test Comment Negativ eNot code = 24374-4) infected wit h HCV, unless recent infection is suspected or otherevidence exists to indic ate HCV infection. NATTY (test code = Performed at: NATTY) - [address] [id number] Director: Max Gresham MD, Phone: [phone] [facility] CampusAcute Viral Hepatitis (HAV, HBV, HCV)2021-09-06 13:12:00 Test Item Value Reference Range Interpretation Comments Hepatitis A IgM Negative Negative (test code = 10075-5) Hepatitis B Negative Negative surface Ag (test code = 5196-1) Hepatitis B core Negative Negative IgM (test code = 56795-0) Hepatitis C Ab <0.1 See_Comment [Automated (test code = message] The sy stem 09493-8) which generated this result transmitted reference range : 0.0 - 0.9 s/co ratio. The reference range was not used to interpret this result as normal/abnormal . NATTY (test code = Performed at: [facility]) [address] [id number] Director: Max Gresham MD, Phone: [phone] [facility]2022-07-14 15:12:00 Test Item Value Reference Range Interpretation Comments MEGHANA direct (test code Negative Negative = 8061-4) NATTY (test code = NATTY) Performed at: [address] [place] [address] [id number] Director: Max Gresham MD, Phone: [phone] [facility]2022-07-14 15:12:00 Test Item Value Reference Range Interpretation Comments MEGHANA direct (test code Negative Negative = 8061-4) NATTY (test code = NATTY) Performed at: [address] [place] [address] [id number] Director: Max Gresham MD, Phone: [phone] [facility] CampusLipid ellco6453-34-52 13:12:00 Test Item Value Reference Range Interpretation [...] ezra 12 mg/dL 5-40 (test code = 27679-6) LDL Chol Calc ([facility]) 54 mg/dL 0-99 (test code = 21975-1) Non-HDL cholesterol 66 mg/dL 0-129 (test code = 06492-9) NATTY (test code = Performed at: NATTY) - [address] [id number] Director: Max Gresham MD, Phone: [phone] [facility] CampusLipid fzkgq2029-58-98 13:12:00 Test Item Value Reference Range Interpretation [...] ezra 12 mg/dL 5-40 (test code = 29712-5) LDL Chol Calc ([facility]) 54 mg/dL 0-99 (test code = 36543-7) Non-HDL cholesterol 66 mg/dL 0-129 (test code = 98396-5) NATTY (test code = Performed at: NATTY) - [address] [id number] Director: Max Gresham MD, Phone: [phone] [facility] CampusQuantiFERON-TB Gold Stod4503-29-24 22:07:00 Test Item Value Reference Range Interpretation Comments QuantiFERON Incubation Incubation (test performed. code = 5936) Quantiferon TB Negative Negative Chemiluminesc ence gold plus (test immunoassay code = 88369-0) methodology NATTY (test code = Performed at: NATTY) - [address] [id number] Director: Max Gresham MD, Phone: [phone] med at: 02 - [facility] Pipvurj[address] [id number] Director: Mookie Downs MD, Phone: [phone] [facility] CampusQuantiFERON-TB Gold Qwgj7599-27-23 22:07:00 Test Item Value Reference Range Interpretation Comments Quantiferon Comment The QuantiFERON -TB criteria (test Gold Plus res ult is code = 8251-1) determined by subtractingthe Nil value from eith er TB antigen (Ag) tu be. The mitogen tubeserves as a control for the test. QuantiFERON TB1 Ag IU/mL Value (test code = 02065-0) QuantiFERON TB2 Ag IU/mL Value (test code = 5942) Quantiferon NIL IU/mL value (test code = 97272-3) Quantiferon >10.00 IU/mL mitogen value (test code = 07516-2) NATTY (test code = Performed at: NATTY) - [facility] Hospitalx[address] [place] [address] [id number] Director: Mookie Downs MD, Phone: [phone] [facility] HospitalQuantiFERON-TB Gold Wjuj2741-10-18 22:07:00 Test Item Value Reference Range Interpretation Comments QuantiFERON Incubation Incubation (test performed. code = 5936) Quantiferon TB Negative Negative Chemiluminesc ence gold plus (test immunoassay code = 16613-4) methodology NATTY (test code = Performed at: NATTY) - [employer] [id number] Director: Max Gresham MD, Phone: [phone] med at: - [facility]wood Medical CenterSxytarc[address] [id number] Director: Mookie Downs MD, Phone: [phone] [facility] HospitalQuantiFERON-TB Gold Whtr1075-65-05 22:07:00 Test Item Value Reference Range Interpretation Comments Quantiferon Comment The QuantiFERON -TB criteria (test Gold Plus res ult is code = 8251-1) determined by subtractingthe Nil value from eith er TB antigen (Ag) tu be. The mitogen tubeserves as a control for the test. QuantiFERON TB1 Ag IU/mL Value (test code = 94161-4) QuantiFERON TB2 Ag IU/mL Value (test code = 5942) Quantiferon NIL IU/mL value (test code = 97938-6) Quantiferon >10.00 IU/mL mitogen value (test code = 59989-1) NATTY (test code = Performed at: NATTY) - [facility]Med[facility] Svjjkbh8418 [address] [id number] Director: Mookie Downs MD, Phone: [phone] [facility] B surface fgpfbdc9529-65-93 14:11:00 Test Item Value Reference Range Interpretation Comments Hepatitis B surface Ag Negative Negative (test code = 5196-1) NATTY (test code = NATTY) Performed at: [address] [place] [address] [id number] Director: Max Gresham MD, Phone: [phone] [facility] B surface pznzcvsz8399-37-06 14:11:00 Test Item Value Reference Range Interpretation Comments Hepatitis B Reactive Non Reactive: surface Ab (test Inconsisten t with code = 71571-3) immunity, le ss than 10 mIU/mL Reactive: Consistent with immunity, great er than 9.9 mIU/mL NATTY (test code = Performed at: NATTY) [address] [id number] Director: Max Gresham MD, Phone: [phone] [facility] B core antibody iekim2281-38-01 14:11:00 Test Item Value Reference Range Interpretation Comments Hepatitis B core total Negative Negative Ab (test code = 99060-9) NATTY (test code = NATTY) Performed at: [address] [place] [address] [id number] Director: Max Gresham MD, Phone: [phone] [facility] C ogtiouql0894-60-11 14:11:00 Test Item Value Reference Range Interpretation Comments Hepatitis C Ab See_Comment Negative: < 0.8 (test code = Indeterminate: 0.8 - 26960-2) 0.9 Positive: > 0.9 The CDC recomme nds that a positive HCV antibody result be followed up wit h a HCV Nucleic Aci d Amplification t est (986264). [Auto mated message] The sy stem which generated this result transmit jared reference range : 0.0 - 0.9 s/co rati o. The reference r narciso was not used to interpret this result as normal/abnormal . NATTY (test code = Performed at: NATTY) - [address] [id number] Director: Max Gresham MD, Phone: [phone] [facility] B surface [id number] 14:11:00 Test Item Value Reference Range Interpretation Comments Hepatitis B surface Ag Negative Negative (test code = 5196-1) NATTY (test code = NATTY) Performed at: [address] [place] [address] [id number] Director: Max Gresham MD, Phone: [phone] [facility] B surface [id number] 14:11:00 Test Item Value Reference Range Interpretation Comments Hepatitis B Reactive Non Reactive: surface Ab (test Inconsisten t with code = 30518-8) immunity, le ss than 10 mIU/mL React meron: Consistent with immunity, great er than 9.9 mIU/mL NATTY (test code = Performed at: NATTY) Lab[address] [id number] Director: Max Gresham MD, Phone: [phone] [facility] B core antibody [id number] 14:11:00 Test Item Value Reference Range Interpretation Comments Hepatitis B core total Negative Negative Ab (test code = 75380-2) NATTY (test code = NATTY) Performed at: [address] [place] [id number] Director: Max Gresham MD, Phone: [phone] [facility] C [id number] 14:11:00 Test Item Value Reference Range Interpretation Comments Hepatitis C Ab See_Comment Negative: < 0.8 (test code = Indeterminate: 0.8 - 44552-3) 0.9 Positive: > 0.9 The CDC recomme nds that a positive HCV antibody result be followed up wit h a HCV Nucleic Aci d Amplification t est (045636). [Auto mated message] The sy stem which generated this result transmit jared reference range : 0.0 - 0.9 s/co rati o. The reference r narciso was not used to interpret this result as normal/abnormal . NATTY (test code = Performed at: NATTY) - [address] [id number] Director: Max Gresham MD, Phone: [phone] [facility]2022-05-19 13:03:00 Test Item Value Reference Range Interpretation Comments Creatinine (test 0.85 mg/dL 0.76-1.27 code = 2160-0) eGFR (test code = 104 mL/min/1.73 See_Comment [Autom ated 8257) message] The system which generated this result transmit jared reference range : >=59. The reference range was not used to interpret this result as normal/abnormal . NATTY (test code = Performed at: NATTY) [facility] [id number] Director: Max Gresham MD, Phone: [phone] [facility]2022-05-19 13:03:00 Test Item Value Reference Range Interpretation Comments Creatinine (test 0.85 mg/dL 0.76-1.27 code = 2160-0) eGFR (test code = 104 mL/min/1.73 See_Comment [Autom ated 8257) message] The system which generated this result transmit ajred reference range : >=59. The reference range was not used to interpret this result as normal/abnormal . NATTY (test code = Performed at: ) [facility] [id number] Director: Max Gresham MD, Phone: [phone] [facility], [facility], [facility]ERV[facility], [id number] 18:01:00Reason for Exam:->[facility] 1970 Sex: MFINALREPORT PROCEDURE: [...] high- grade canal stenosis. Signed: [facility] Verified Date/Time: 02/08/2020 18:01:20 CT, BIOPSY/ASPIRATION/[id number] 15:18:00 [facility]: 1970 Sex: MFINALREPORT CT Guided myelography. History: Neck pain. The patient was here for translumbar cervical myelography. The attempts to perform fluoroscopic-guided myelography were unsuccessful because of bulbous overhanging spinous processes and laminae. We have no option but to resort to CT-guided access to the spinal subarachnoid space. Manufacturing Plant Technician: Jerson Jacobson MD. Commercial Review Appraiser: None. Modality: CT DOSE REDUCTION: The examination [...] preservative-free local infiltration. Estimated blood loss: < 5 cc. Technique: Informed written consent was obtained. Discussion of risks, benefits, and alternativeswere made with the patient. The patient expressed understanding and agreed to proceed. A universal timeout was performed prior to starting the procedure. The room personnel used personal protective equipment. The operators used sterile gloves in addition. The patient was laid prone on the CT table. A preliminary CT scan was performed through the region of interest to localize the target. A limited CTwas performed through the region of interest with a marking grid in place to determine an access site, depth and angle. The site was prepped with chlorhexidine gluconate and draped in a standard sterile fashion. After local anesthesia a 22-gauge 3 1/2 inches long spinal needle was advanced under interm ittent CT fluoroscopy into the L2-L3 level spinal subarachnoid space. Unobstructed return of the CSFwas confirmed. This was followed by injection of [...] care of your patient. Signed: Jerson Jacobson VerifiedDate/Time: 02/08/2020 15:18:50 Reading Location: [facility] Radiology Reading Room [place], MYELOGRAM, CERVICAL 2020-02-08 15:08:00Unlisted Reason for Exam - Click Yes and Enter Reason Below- >Yes Unlisted Reason for Exam->C[facility]ICAL ST[facility]OS[facility] : 1970 Sex: MFINALREPORT Lumbar [...] and is reported separately. Signed: Jerson Jacobson MDReport Verified Date/Time: 02/08/2020 15:08:29 Reading Location: [facility] Radiology Reading Room
--- NOTE | 2022-01-05 19:41 | ER ---
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 Pt was seen in the ED 7 days ago, dx: right vertebral arterial dissection. Coronavirus screen: Vaccine status: Patient reports receiving the 2nd dose of the covid vaccine. Client denies travel out of the [place] in the last 14 days. Ebola Screen: Patient negative for fever greater than or equal to 101.5 degrees Fahrenheit, and additional compatible Ebola Virus Disease symptoms Patient denies exposure to infectious person. Patient denies travel to an Ebola-affected area in the 21 days before illness onset. Initial Sepsis Screen: Does the patient meet any 2 criteria? No. Patient's initial sepsis screen is negative. Does the patient have a suspected source of infection? No. Patient's initial sepsis screen is negative. Risk Assessment: Do you want to hurt yourself or someone else? Patient reports no desire to harm self or others. Onset of symptoms was January 05, 2022 at 19:00. 19:20 Method Of Arrival: Ambulatory kb3 19:20 Acuity: NIESHA 2 kb3 Triage Assessment: 19:23 General: Appears in no apparent distress. uncomfortable, Behavior is calm, cooperative. kb3 Pain: Complains of pain in left eye Pain does not radiate. Pain currently is 5 out of 10 on a pain scale. Quality of pain is described as pressure, Pain began 30 min ago. 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 - Social history:: Smoking status: Patient denies any tobacco usage or history of. Screenin:26 Abuse screen: Denies threats or abuse. Denies injuries from another. Nutritional kb3 screening: No deficits noted. Tuberculosis screening: No symptoms or risk factors identified. Fall Risk None identified. Assessment: 19:26 General: Dr Henry assessing pt in triage. EENT: Eyes Subconjunctival hemorrhage. Reports kb3 left eye pressure. Vital Signs: 19:20 BP 147 / 106; Pulse 82; Resp 20; Temp 98.8; Pulse Ox 100% ; Weight 79.38 kg; Height 5 kb3 ft. 4 in. (162.56 cm); Pain 5/10; 19:20 Body Mass Index 30.04 (79.38 kg, 162.56 cm) kb3 ED Course: 19:12 Patient arrived in ED. bp1 19:16 Alfonzo Henry DO is Attending Physician. ms3 19:23 Triage completed. kb3 19:23 Arm band placed on right wrist. kb3 19:26 Patient has correct armband on for positive identification. kb3 19:26 No provider procedures requiring assistance completed. Patient did not have IV access kb3 during this emergency room visit. Administered Medications: No medications were administered Medication: 19:26 VIS not applicable for this client. kb3 Outcome: 19:40 Discharge ordered by . ms3 19:47 Discharged to home ambulatory. kb3 19:47 Condition: stable 19:47 Discharge instructions given to patient, family, Instructed on discharge instructions, follow up and referral plans. Demonstrated understanding of instructions, follow-up care. 19:48 Patient left the ED. 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 Pt was seen in the ED 7 days ago, dx: right vertebral arterial dissection kb3
--- NOTE | 2022-01-05 19:41 | EDPHYS ---
Physician Documentation [facility] Name: Malvin Collado Age: 51 yrs Sex: Male : 1970 Arrival Date: 01/05/2022 Time: 19:12 Bed IW1 Private MD: ED Physician Alfonzo Henry HPI: 01/05 20:07 This 51 yrs old Male presents to ER via Ambulatory with complaints of Eye ms3 Problem. 20:07 The patient is experiencing redness. Onset: The symptoms/episode began/occurred just ms3 prior to arrival. Duration: the symptoms are continuous. Aggravated by nothing. Alleviated by nothing. Associated signs and symptoms: Pertinent negatives: headache. Severity of symptoms: At their worst the symptoms were moderate in the emergency department the symptoms are unchanged Pain is currently a 0 / 10. 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 - Social history:: Smoking status: Patient denies any tobacco usage or history of. ROS: 20:07 Constitutional: Negative for fever, and chills. Neck: Negative for injury, pain, and ms3 swelling, Cardiovascular: Negative for chest pain, and palpitations. Respiratory: Negative for shortness of breath, cough, wheezing, and pleuritic chest pain, Abdomen/GI: Negative for abdominal pain, nausea, vomiting, diarrhea, and constipation, MS/Extremity: Negative for injury and deformity. 20:07 Eyes: Positive for redness. 20:07 All other systems are negative. Exam: 20:07 Constitutional: This is a well developed, well nourished patient who is awake, alert, ms3 and in no acute distress. Head/Face: Normocephalic, atraumatic. Neck: Trachea midline, no cervical lymphadenopathy. Supple, full range of motion without nuchal rigidity, or vertebral point tenderness. No Meningismus. Chest/axilla: Normal chest wall appearance and motion. Nontender with no deformity. Cardiovascular: Regular rate and rhythm with a normal S1 and S2. No gallops, murmurs, or rubs. Normal PMI, no JVD. No pulse deficits. Respiratory: Lungs have equal breath sounds bilaterally, clear to auscultation and percussion. No rales, rhonchi or wheezes noted. No increased work of breathing, no retractions or nasal flaring. Abdomen/GI: Soft, non-tender, with normal bowel sounds. No distension or tympany. No guarding or rebound. No evidence of tenderness throughout. Skin: Warm, dry with normal turgor. Normal color with no rashes, no lesions, and no evidence of cellulitis. 20:07 Eyes: Conjunctiva: subconjunctival hemorrhage(s), seen in the left eye. Vital Signs: 19:20 BP 147 / 106; Pulse 82; Resp 20; Temp 98.8; Pulse Ox 100% ; Weight 79.38 kg; Height 5 kb3 ft. 4 in. (162.56 cm); Pain 5/10; 19:20 Body Mass Index 30.04 (79.38 kg, 162.56 cm) kb3 MDM: 19:39 Patient medically screened. ms3 20:07 Data reviewed: vital signs, nurses notes, and as a result, I will discharge patient. ms3 Counseling: I had a detailed discussion with the patient and/or guardian regarding: the historical points, exam findings, and any diagnostic results supporting the discharge/admit diagnosis, the need for outpatient follow up, to return to the emergency department if symptoms worsen or persist or if there are any questions or concerns that arise at home. ED course: Discussed physical exam findings with patient and his . Patient to follow-up with his eye physician in 2 to 3 days. Patient is understand and agree with plan. All questions were answered. Return precautions discussed include worsening symptoms, or any other concerns. Administered Medications: No medications were administered Disposition Summary: 01/05/22 19:40 Discharge Ordered Location: Home ms3 Condition: Stable ms3 Diagnosis - Subconjunctival hemorrhage ms3 Followup: ms3 - With: Private Physician - When: 2 - 3 days - Reason: Recheck today's complaints Discharge Instructions: - Discharge Summary Sheet ms3 - Subconjunctival Hemorrhage ms3 Forms: - Medication Reconciliation Form ms3 - Thank You Letter ms3 - Antibiotic Education ms3 - Prescription Opioid Use ms3 Signatures: Alfonzo Henry, DO ms3 Mary Villalobos, RN RN kb3
[2022-01-05 20:17] VITALS: BP 147/106; TEMP 98.8; O2SAT 100
== END 2022-01-05 19:48 | disposition home or self-care (01) ==
LOC: ER 19:08
DX: H11.32 Conjunctival hemorrhage, left eye (principal); Z79.01 Long term (current) use of anticoagulants; Z79.82 Long term (current) use of aspirin; Z88.8 Allergy status to other drugs, medicaments and biological substances
CPT/HCPCS: 99281